=== PATIENT | male | born 1950 | race Caucasian/White ===

== ENCOUNTER 2023-04-05 09:58 | Outpatient (OUT) | payer MEDICARE, SELFPAY ==
--- NOTE | 2023-04-05 10:11 | XR_ITS ---
The [address] [address] Patient Name: FLORES DIAZ MRN: [id number] date: 1950 Sex: M Assigned Patient Location: [facility] Current Patient Location: Accession/Order Number: [id number] Exam Date: 04/05/2023 10:15 Report Date: 04/06/2023 00:34 At the request of: KODY RUIZ Procedure: XR abdomen 1V EXAM: PLAIN FILM OF THE ABDOMEN HISTORY: Abdominal pain. COMPARISON: None. TECHNIQUE: 2 views of the abdomen/pelvis submitted for review. FINDINGS: Lines and Tubes: None. Free air: None. The bowel gas pattern is nonobstructive. There are no abnormal calcifications. However, evaluation of the renal shadows is limited due to overlying bowel gas. No portal venous air. Osseous structures do not demonstrate any acute abnormality. XR/XR abdomen 1V IMPRESSION: 1. Nonobstructive bowel gas pattern. 2. Minimal retention of stool. Electronically authenticated by: JACKIE FIORE Date: 04/06/2023 00:34
== END 2023-04-05 09:59 | disposition home or self-care (01) ==
LOC: RAD 10:01
PROVIDERS: PCP Nurse Practitioner Family; Visit Provider Urology
DX: N20.1 Calculus of ureter (principal)
CPT/HCPCS: 74018

== ENCOUNTER 2023-04-13 07:08 | Outpatient (OUT) | payer MEDICARE, SELFPAY ==
--- NOTE | 2023-04-13 07:19 | XR_ITS ---
The [address] [address] Patient Name: FLORES DIAZ MRN: [id number] date: 1950 Sex: M Assigned Patient Location: [facility] Current Patient Location: [facility] Accession/Order Number: [id number] Exam Date: 04/13/2023 07:24 Report Date: 04/13/2023 09:27 At the request of: KODY RUIZ Procedure: XR abdomen 1V EXAM: XR abdomen 1V HISTORY: Kidney Stone N20.0 COMPARISON: None. TECHNIQUE: AP view of the abdomen. FINDINGS: Nonobstructive bowel gas pattern is noted. There is no suspicious calcification. The osseous structures are intact. XR/XR abdomen 1V IMPRESSION: Nonobstructive bowel gas pattern. No suspicious renal opacification. Electronically authenticated by: BRITTON LEE Date: 04/13/2023 09:27
== END 2023-04-13 07:09 | disposition home or self-care (01) ==
LOC: RAD 07:09
PROVIDERS: PCP Nurse Practitioner Family; Visit Provider Urology
DX: N20.0 Calculus of kidney (principal)
CPT/HCPCS: 74018

== ENCOUNTER 2024-02-14 07:04 | Outpatient (OUT) | payer MEDICARE, SELFPAY ==
[2024-02-14 08:01] LABS: Basophils Percent Auto 0.8 % (0.2-2.0); Eosinophils Absolute Auto 0.2 10^3/uL (0.0-0.7); Eosinophils Percent Auto 4.5 % (0.9-7.0); Hematocrit 43.4 % (42.0-54.0); Hemoglobin 14.3 g/dL (14.0-18.0); Immature Granulocytes Abs Auto 0.01 10^3/uL (0.00-0.03); Immature Granulocytes Pct Auto 0.3 % (0.0-0.5); Lymphocytes Percent Auto 26.1 % (20.5-60.0); Mean Corpuscular HGB Conc 32.9 g/dL (29.9-35.2); Mean Corpuscular Hemoglobin 30.6 pg (25.9-34.0); Mean Corpuscular Volume 92.9 fL (80.0-94.0); Mean Platelet Volume 10.6 fL (9.5-13.5); Monocytes Absolute Auto 0.4 10^3/uL (0.3-0.8); Monocytes Percent Auto 11.1 % (1.7-12.0); Neutrophils Absolute Auto 2.2 10^3/uL (1.4-6.5); Neutrophils Percent Auto 57.2 % (43.0-75.0); Platelet Count 120 10^3/uL (150-450); Red Blood Count 4.67 10^6/uL (4.70-6.10); Red Cell Distribution Width 12.7 % (11.0-15.0); White Blood Count 3.8 10^3/uL (4.0-11.0)
[2024-02-14 08:27] LABS: Alanine Aminotransferase 29 U/L (16-63); Albumin Globulin Ratio 1.2; Albumin Level 3.5 g/dL (3.4-5.0); Alkaline Phosphatase 57 U/L (46-116); Anion Gap 10.5; Aspartate Amino Transferase 25 U/L (15-37); BUN Creatinine Ratio 14.3; Bilirubin Total 0.7 mg/dL (0.2-1.0); Calcium 8.1 mg/dL (8.5-10.1); Carbon Dioxide 28.7 mmol/L (21.0-32.0); Chloride 108 mmol/L (98-107); Chol HDL Ratio 3.1; Cholesterol 148 mg/dL (<=200); Estimated GFR (African America >60 (>=60); Estimated GFR (Non-African Ame >60 (>=60); Globulin 2.8 g/dL; Glucose 110 mg/dL (74-106); HDL Cholesterol 47 mg/dL (40-60); Potassium 4.2 mmol/L (3.5-5.1); Sodium 143 mmol/L (136-145); Thyroid Stimulating Hormone 2.828 uIU/mL (0.358-3.740); Total Protein 6.3 g/dL (6.4-8.2); Triglycerides 65 mg/dL (<=150)
[2024-02-14 08:39] LABS: Prostate Specific Antigen Scrn 1.97 ng/mL (<=4.00)
[2024-02-14 08:49] LABS: Estimated Average Glucose 117 mg/dL; Glycohemoglobin A1C 5.7 % (4.5-6.2)
== END 2024-02-14 07:05 | disposition home or self-care (01) ==
LOC: LAB 07:06
PROVIDERS: PCP Nurse Practitioner Family; Visit Provider Nurse Practitioner Family
DX: Z00.00 Encounter for general adult medical examination without abnormal findings (principal); N52.9 Male erectile dysfunction, unspecified; D69.6 Thrombocytopenia, unspecified; E78.2 Mixed hyperlipidemia; Z12.5 Encounter for screening for malignant neoplasm of prostate
CPT/HCPCS: 36415; 80053; 80061; 83036; 84443; 85025; G0103

== ENCOUNTER 2024-05-10 16:54 | Outpatient (OUT) | payer MEDICARE, SELFPAY ==
--- NOTE | 2024-05-10 | XR_ITS ---
The [address] [address] Patient Name: FLORES DIAZ MRN: [id number] date: 1950 Sex: M Assigned Patient Location: [facility] Current Patient Location: Accession/Order Number: [id number] Exam Date: 05/10/2024 17:04 Report Date: 05/11/2024 09:53 At the request of: KODY RUIZ Procedure: XR abdomen 1V EXAMINATION: XR abdomen 1V HISTORY: kidney stones n20.0 COMPARISON: 04/13/2023 FINDINGS: KIDNEY/URETER - RIGHT: No visible renal or ureteral calcifications. KIDNEY/URETER - LEFT: No visible renal or ureteral calcifications. PELVIS: No visible ureteral calcifications. Any visible calcifications favor phleboliths. BOWEL: No abnormal dilation or deviation. BONES: No acute abnormality. OTHER: Negative. No abnormal gaseous collections. XR/XR abdomen 1V IMPRESSION: No urinary tract calculi observed Electronically authenticated by: GERALD ALVARADO Date: 05/11/2024 09:53
--- OUTSIDE RECORDS SUMMARY | 2024-05-10 17:01 | XMS_ITS | CCD ---
Author Organization [facility] Care Team Providers Care Through Operator Name Role Phone Fallonle Niki Unavailable MITCH Buenrostro Primary Care Provider MITCH Buenrostro Attending Provider Hilario Sarmiento Primary Care Provider MITCH Buenrostro Primary Care Provider MITCH Buenrostro Attending Provider RUBI BUENROSTRONIFER Primary Care Physician KAPLE, NKII Admitting Unavailable KAPLE, NIKI Attending Unavailable KAPLE, NIKI Consulting Unavailable KAPLE, NIKI Primary Care Unavailable SARA ., DR GATES Attending Unavailable SARA ., DR GATES Consulting Unavailable SARA ., DR GATES Admitting Unavailable KAPLE, NIKI Primary Care Unavailable KAPLE, NIKI Admitting Unavailable KAPLE, NIKI Attending Unavailable KAPLE, NIKI Consulting Unavailable KAPLE, NIKI Primary Care Unavailable Porter DNP Niki Primary Care Provider DO Artie Mejia Emergency Provider MD Sincere Mark Attending Provider Kaple, Niki Primary Care Unavailable Sincere Sheth Attending Unavailable Sincere Sheth Admitting Unavailable Kaple, Niki Primary Care Unavailable Kaple, Niki Admitting Unavailable Kaple, Niki Attending Unavailable Kaple, Niki Primary Care Unavailable Kaple, Niki Admitting Unavailable Kaple, Niki Attending Unavailable Kaple, Niki Primary Care Unavailable Artie Mejia Attending Unavailable Artie Mejia Admitting Unavailable SHETH, Sincere Plasencia Attending Unavailable SHETH, Sincere Plasencia Attending Unavailable SHETH, Sincere Plasencia Attending Unavailable SHETH, Sincere R Attending Unavailable SHETH, Sincere R Attending Unavailable SHETH, Sincere Plasencia Attending Unavailable SHETH, Sincere R Admitting Unavailable SHETH, Sincere Plasencia Attending Unavailable Allergies Allergy Classification Reported Allergen(s) Allergy Type Date of Onset Reaction(s) Facility (1 source) No Known Medication Allergies; Translations: [No Known Medication Allergies] Propensity to adverse reactions (disorder) [facility] Repository Medications Current Medications Medication Drug Class(es) Dates Sig (Normalized) Sig (Original) Aspir-81 81 MG (9 sources) take 1 tablet by mouth once daily Aspir-81 81 MG 1 tablet Orally Once a day for 30 day(s) Active Aspirin (5 sources) Platelet Aggregation Inhibitor, Nonsteroidal Anti-inflammatory Drug Start: 08-02-2019 aspirin 81 mg, Refills(s) 0 Start Date: 08/02/19 Status: Ordered Start: 07-10-2008 aspirin(ASPIR- LOW 81 MG TAB) Take one(1) tablet daily. 0 07/10/2008 Active Comment on above: Take one(1) tablet d aily. Multi For Him 50+ (9 sources) take 1 tablet by mouth once daily Multi For Him 50+ 1 tablet Orally Once a day Active Multi Vitamin+ (4 sources) Start: Multi Vitamin+ Refill(s) 0 Start Date: 09/29/21 Status: Ordered Multivitamin preparation (2 sources) Start: take 1 tablet by mouth once daily Multivitamin Active 1 TAB PO Daily March 04, 2023 12:00am naproxen 500 mg oral tablet (2 sources) Nonsteroidal Anti-inflammatory Drug Start: take 1 tablet by mouth twice daily Naproxen (Naprosyn) 500 mg tablet Active 500 MG PO Twice daily 10 March 04, 2023 12:00am oxyCODONE hydrochloride 5 mg oral tablet (2 sources) Opioid Agonist Start: take 5 mg by mouth once daily Oxycodone Active 5 MG PO Daily 7 March 04, 2023 sildenafil 100 mg oral tablet (8 sources) Phosphodiesterase 5 Inhibitor Start: take 1 tablet by mouth once daily sildenafil 100 mg Tab 100 mg = 1 tab(s), Oral, Daily, # 30 tab(s), Refills(s) 4, Pharmacy: [id number], 173, cm, 12/11/22 10:15:00 EDT, Height/Length Dosing, 75, kg, 12/11/22 10:15:00 EDT, Weight Dosing Start Date: 12/11/22 Status: Ordered Viagra Active simvastatin 40 mg oral tablet (15 sources) HMG-CoA Reductase Inhibitor Start: 08-02-2019 simvastatin 40 mg, Oral, Refills(s) 0 Start Date: 08/02/19 Status: Ordered Simvastatin 40 M G TAKE 1 TABLET EVERY EVENING for 90 Active tadalafil 5 mg oral tablet (7 sources) Phosphodiesterase 5 Inhibitor Cialis 5 MG 1 tablet Orally prn Active tamsulosin hydrochloride 0.4 mg oral capsule (4 sources) alpha-Adrenergic Brody Start: 03-08-20 take 1 capsule by mouth twice daily tamsulosin 0.4 mg Cap 0.4 mg = 1 cap(s), Oral, BID, # 60 cap(s), Refills(s) 0, Pharmacy: [id number], 173, cm, 02/22/23 9:11:00 EDT, Height/Length Dosing, 75, kg, 02/22/23 9:11:00 EDT, Weight Dosing Start Date: 03/08/23 Status: Ordered Start: 03-04-2023 take 1 capsule by [facility] once daily Tamsulosin (Flomax) 0.4 mg capsule Active 0.4 MG PO Daily March 04, 2023 12:00am terbinafine 250 mg oral tablet (6 sources) Allylamine Antifungal Start: 11-27-2021 take 1 tablet by mouth every twenty-four hours Terbinafine HCl 250 MG 1 tablet Orally Once a day for 90 days Oct, Active Completed/Discontinued Medications Medication Drug Class(es) Dates Sig (Normalized) Sig (Original) cyclobenzaprine hydrochloride 10 mg oral tablet (3 sources) Muscle Relaxant Start: 12-25-2014 take 1 tablet by mouth every eight hours Cyclobenzaprine HCl 10 MG 1 tablet Orally Three times a day Nov, Not-Taking diclofenac sodium 0.01 mg/mg topical gel (3 sources) Nonsteroidal Anti-inflammatory Drug Start: 09-11-2013 Voltaren 1 % as directed Transdermal As directed, up to qid Aug, Not-Taking docosahexanoic acid/epa(EPA FISH OIL CAP) (1 source) Start: 07-10-2008 docosahexanoic acid/epa(EPA FISH OIL CAP) Take one(1) tablet daily. 0 07/10/2008 Active Comment on above: Take one(1) tablet d aily. krill oil (3 sources) Krill Oil [place]- 3 300 MG Orally Not-Taking multivitamins(DAILY MULTIVITAMIN TAB) (1 source) Start: 07-10-2008 multivitamins(DAILY MULTIVITAMIN TAB) Take one(1) tablet daily. 0 07/10/2008 Active Comment on above: Take one(1) tablet d aily. rosuvastatin calcium 20 mg oral tablet (1 source) HMG-CoA Reductase Inhibitor Start: 05-02-2010 ROSUVASTATIN 20 MG TAB one tablet daily 0 05/02/2010 Active Comment on above: one tablet daily Suprep Bowel Prep . (3 sources) Start: 01-04-2015 Suprep Bowel Prep . as directed Orally as directed for 1 dose(s) December, Not-Taking Problems Active Problems Problem Classification Problem Date Documented Date Episodic/Chronic Abdominal pain (3 sources) Abdominal pain; Translations: [Unspecified abdominal pain] Onset: 03-04-2023 03-04-2023 Episodic Calculus of urinary tract (20 sources) Ureteric stone; Translations: [Calculus of ureter] Onset: 11-27-2021 Resolved: 11-27-2021 Episodic Coagulation and hemorrhagic disorders (9 sources) Platelet count below reference range; Translations: [Thrombocytopenia, unspecified] Chronic Diabetes mellitus without complication (12 sources) Impaired fasting glycemia; Translations: [Impaired fasting glucose] Onset: 11-27-2021 Resolved: 11-27-2021 Episodic Disorders of lipid metabolism (20 sources) Mixed hyperlipidemia; Translations: [Mixed hyperlipidemia] Onset: 11-27-2021 Resolved: 11-27-2021 Chronic Diverticulosis and diverticulitis (9 sources) Diverticular disease of colon; Translations: [Diverticulosis of large intestine without perforation or abscess without bleeding] Chronic Hyperplasia of prostate (16 sources) Benign prostatic hypertrophy with outflow obstruction; Translations: [Benign prostatic hyperplasia with lower urinary tract symptoms] Onset: 12-10-2022 Chronic Joint disorders and dislocations; trauma-related (1 source) Derangement of medial meniscus; Translations: [Other meniscus derangements, unspecified medial meniscus, unspecified knee] Onset: 04-08-2010 04-08-2010 Chronic Other diseases of kidney and ureters (9 sources) Hydronephrosis; Translations: [Unspecified hydronephrosis] Episodic Other ear and sense organ disorders (1 source) Conductive hearing loss of combined sites; Translations: [Conductive hearing loss, unspecified] Onset: 10-31-2008 10-31-2008 Chronic Other ear and sense organ disorders (9 sources) Tinnitus; Translations: [Tinnitus, right ear] Episodic Other endocrine disorders (4 sources) 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 Other male genital disorders (13 sources) Impotence of organic origin; Translations: [Male erectile dysfunction, unspecified] 08-05-2020 Chronic Other male genital disorders (4 sources) Male erectile dysfunction, unspecified; Translations: [Erectile dysfunction] Onset: 11-27-2021 Resolved: 11-27-2021 Chronic Other nutritional; endocrine; and metabolic disorders (7 sources) Hypocalcemia; Translations: [Hypocalcemia] Chronic Other nutritional; endocrine; and metabolic disorders (1 source) Hypocalcemia Onset: 12-31-2021 Resolved: 12-31-2021 Chronic Residual codes; unclassified (2 sources) Family history of cancer; Translations: [Family history of malignant neoplasm of prostate] Onset: 12-10-2022 Episodic Residual codes; unclassified (4 sources) Family history of prostate cancer 08-05-2020 Episodic Unclassified (1 source) Benign prostatic hyperplasia with lower urinary tract symptoms; Translations: [Benign prostatic hyperplasia with lower urinary tract symptoms] Onset: 03-25-2023 Unclassified (1 source) Strain of muscle, fascia and tendon of lower back, subsequent encounter; Translations: [Strain of muscle, fascia and tendon of lower back, subsequent encounter] Onset: 07-06-2022 Unclassified (2 sources) Obstructive hydronephrosis 04-27-2023 Past or Other Problems Problem Classification Problem Date Documented Date Episodic/Chronic Mycoses (9 sources) Tinea unguium; Translations: [TINEA UNGUIUM] Onset: 11-27-2021 Resolved: 03-03-2022 Episodic Other ear and sense organ disorders (1 source) Cholesteatoma of mastoid, unspecified ear; Translations: [Cholesteatoma of middle ear and mastoid] Onset: 10-31-2008 10-31-2008 Episodic Other non-traumatic joint disorders (1 source) Pain in lower limb; Translations: [Pain in unspecified knee] Onset: 05-15-2010 05-15-2010 Episodic Sprains and strains (1 source) Strain of muscle, fascia and tendon of lower back, initial encounter Onset: 05-13-2022 Resolved: 05-13-2022 Episodic Results Test Name Value Interpretation Reference Range Facility [facility] 05-13-2023 Screens [id number]# 1.00CD:127 Normal [facility] Ambulatory Visit Summaryon 0 05-12-2023 Ambulatory Visit Summary ROXY DOLAN :1950 Visit Date:05/12/2023 Ambulatory Visit Instructions Your Diagnosis Prostate nodule BPH with urinary obstruction Organic impotence History of kidney stones Kidney stone Tests Performed XR Abdomen 1 View -- Results Pending -- Please visit your patient portal for your results or contact your primary care physician. Your Care Team Attending Physician - Sincere SHETH MD Primary Care Physician - NIKI BUENROSTRO CNP This Is Your Medications List sildenafil (sildenafil 100 mg Tab) tamsulosin (tamsulosin 0.4 mg Cap) Contact prescribing physician if questions or concerns aspirin multivitamin (Multi Vitamin+) simvastatin Procedures Performed Transrectal needle biopsy of prostate (04/28/2023), History of knee surgery, Tonsillectomy. Discharge Vitals Height 173 cm Height 68 in Weight 75 kg Weight 165 lb BMI 25.06 What to do next You Need to Schedule the Following Appointments Follow Up with Sincere SHETH MD, [place] When: Where: [facility] [address] [place] [address]- Medications What How Much When Instructions Unchanged sildenafil (sildenafil 100 mg Tab) 1 Tablets By Mouth Every day Unchanged tamsulosin (tamsulosin 0.4 mg Cap) 1 Capsules By Mouth 2 times a day Unchanged aspirin 81 Milligram Contact prescribing physician if questions or concerns Unchanged multivitamin (Multi Vitamin+) Contact prescribing physician if questions or concerns Unchanged simvastatin 40 Milligram By Mouth Contact prescribing physician if questions or concerns Allergies No Known Medication Allergies Problems Ongoing - Any problem that you are currently receiving treatment for. BPH with urinary obstruction Family history of prostate cancer History of kidney stones Hyperlipidemia Hypogonadism in male Nephrolithiasis Organic impotence Prostate nodule Ureteral stone with hydronephrosis Education Materials Benign Prostatic Hyperplasia Benign prostatic hyperplasia (BPH) is an enlarged prostate gland that is caused by the normal aging process. The prostate may get bigger as a man gets older. The condition is not caused by cancer. The prostate is a walnut-sized gland that is involved in the production of semen. It is located in front of the rectum and below the bladder. The bladder stores urine. The urethra carries stored urine out of the body. An enlarged prostate can press on the urethra. This can make it harder to pass urine. The buildup of urine in the bladder can cause infection. Back pressure and infection may progress to bladder damage and kidney (renal) failure. What are the causes? This condition is part of the normal aging process. However, not all men develop problems from this condition. If the prostate enlarges away from the urethra, urine flow will not be blocked. If it enlarges toward the urethra and compresses it, there will be problems passing urine. What increases the risk? This condition is more likely to develop in men older than 50 years. What are the signs or symptoms? Symptoms of this condition include: ? Getting up often during the night to urinate. ? Needing to urinate frequently during the day. ? Difficulty starting urine flow. ? Decrease in size and strength of your urine stream. ? Leaking (dribbling) after urinating. ? Inability to pass urine. This needs immediate treatment. ? Inability to completely empty your bladder. ? Pain when you pass urine. This is more common if there is also an infection. ? Urinary tract infection (UTI). How is this diagnosed? This condition is diagnosed based on your medical history, a physical exam, and your symptoms. Tests will also be done, such as: ? A post-void bladder scan. This measures any amount of urine that may remain in your bladder after you finish urinating. ? A digital rectal exam. In a rectal exam, your health care provider checks your prostate by putting a lubricated, gloved finger into your rectum to feel the back of your prostate gland. This exam detects the size of your gland and any abnormal lumps or growths. ? An exam of your urine (urinalysis). ? A prostate specific antigen (PSA) screening. This is a blood test used to screen for prostate cancer. ? An ultrasound. This test uses sound waves to electronically produce a picture of your prostate gland. Your health care provider may refer you to a specialist in kidney and prostate diseases (urologist). How is this treated? Once symptoms begin, your health care provider will monitor your condition (active surveillance or watchful waiting). Treatment for this condition will depend on the severity of your condition. Treatment may include: ? Observation and yearly exams. This may be the only treatment needed if your condition and symptoms are mild. ? Medicines to relieve your symptoms, including: ? Medicines (more content not included)... Normal [facility] Patient Educationon 05-12-20 Patient Education Urology Benign Prostatic Hyperplasia Benign prostatic hyperplasia (BPH) is an enlarged prostate gland that is caused by the normal aging process. The prostate may get bigger as a man gets older. The condition is not caused by cancer. The prostate is a walnut-sized gland that is involved in the production of semen. It is located in front of the rectum and below the bladder. The bladder stores urine. The urethra carries stored urine out of the body. An enlarged prostate can press on the urethra. This can make it harder to pass urine. The buildup of urine in the bladder can cause infection. Back pressure and infection may progress to bladder damage and kidney (renal) failure. What are the causes? This condition is part of the normal aging process. However, not all men develop problems from this condition. If the prostate enlarges away from the urethra, urine flow will not be blocked. If it enlarges toward the urethra and compresses it, there will be problems passing urine. What increases the risk? This condition is more likely to develop in men older than 50 years. What are the signs or symptoms? Symptoms of this condition include: ? Getting up often during the night to urinate. ? Needing to urinate frequently during the day. ? Difficulty starting urine flow. ? Decrease in size and strength of your urine stream. ? Leaking (dribbling) after urinating. ? Inability to pass urine. This needs immediate treatment. ? Inability to completely empty your bladder. ? Pain when you pass urine. This is more common if there is also an infection. ? Urinary tract infection (UTI). How is this diagnosed? This condition is diagnosed based on your medical history, a physical exam, and your symptoms. Tests will also be done, such as: ? A post-void bladder scan. This measures any amount of urine that may remain in your bladder after you finish urinating. ? A digital rectal exam. In a rectal exam, your health care provider checks your prostate by putting a lubricated, gloved finger into your rectum to feel the back of your prostate gland. This exam detects the size of your gland and any abnormal lumps or growths. ? An exam of your urine (urinalysis). ? A prostate specific antigen (PSA) screening. This is a blood test used to screen for prostate cancer. ? An ultrasound. This test uses sound waves to electronically produce a picture of your prostate gland. Your health care provider may refer you to a specialist in kidney and prostate diseases (urologist). How is this treated? Once symptoms begin, your health care provider will monitor your condition (active surveillance or watchful waiting). Treatment for this condition will depend on the severity of your condition. Treatment may include: ? Observation and yearly exams. This may be the only treatment needed if your condition and symptoms are mild. ? Medicines to relieve your symptoms, including: ? Medicines to shrink the prostate. ? Medicines to relax the muscle of the prostate. ? Surgery in severe cases. Surgery may include: ? Prostatectomy. In this procedure, the prostate tissue is removed completely through an open incision or with a laparoscope or robotics. ? Transurethral resection of the prostate (TURP). In this procedure, a tool is inserted through the opening at the tip of the penis (urethra). It is used to cut away tissue of the inner core of the prostate. The pieces are removed through the same opening of the penis. This removes the blockage. ? Transurethral incision (TUIP). In this procedure, small cuts are made in the prostate. This lessens the prostate's pressure on the urethra. ? Transurethral microwave thermotherapy (TUMT). This procedure uses microwaves to create heat. The heat destroys and removes a small amount of prostate tissue. ? Transurethral needle ablation (TUNA). This procedure uses radio frequencies to destroy and remove a small amount of prostate tissue. ? Interstitial laser coagulation (ILC). This procedure uses a laser to destroy and remove a small amount of prostate tissue. ? Transurethral electrovaporization (TUVP). This procedure uses electrodes to destroy and remove a small amount of prostate tissue. ? Prostatic urethral lift. This procedure inserts an implant to push the lobes of the prostate away from the urethra. Follow these instructions at home: ? Take [id number] and prescription medicines only as told by your health care provider. ? Monitor your symptoms for any changes. Contact your health care provider with any changes. ? Avoid drinking large amounts of liquid before going to bed or out in public. ? Avoid or reduce how much caffeine or alcohol you drink. ? Give yourself time when you urinate. ? Keep all follow-up visits. This is important. Contact a health care provider if: ? You have unexplained back pain. ? Your symptoms do not get better with treatment. ? You develop side effects from the medicine (more content not included)... Normal [facility] Urology Office/Clinic Noteon 05-12-2023 Urology Office/Clinic Note Chief Complaint Pt is here for PO TRUS/bx HPI Staff Follow up to TRUS/bx done 04/28/23, review pathology report. Previous DX: BPH with urinary obstruction, family HX of prostate cancer (grandfather) and organic impotence. Pt is taking Sildenafil 100mg PRN. Dysuria: denies Incomplete bladder emptying: denies Hematuria: denies Frequency: denies Urgency: denies Nocturia: 1x a night Stream: steady stream Leaking: denies Post void dripping: denies Wearing pads/ Depends: denies Urge incontinence: denies Stress incontinence: denies Incontinence without Sensory Awareness: denies Abdominal pain: denies Flank pain: denies Sexual complaints: _ History of Present Illness Tests reviewed: reviewed op note, path I have reviewed the previous health record information and history for this patient from Dr. Sheth. I have reviewed and verified the staff HPI to be accurate for this encounter. There have been no associated fever, chills, flank pain, or blood in the urine. Denies any urinary infections since last encounter. Review of Systems PHQ Score Initial Depression Screen Score: 0 ROS - Provider Constitutional: denies weight loss, denies hot flashes. Eyes: denies eye problems. Gastrointestinal: denies nausea, denies vomiting. Cardiovascular: denies chest pain or angina. Integumentary: no dryness Musculoskeletal: denies musculoskeletal symptoms. ENMT: denies otolaryngeal symptoms. Respiratory: no shortness of breath. Heme/Lymph: denies easy bleeding tendency, denies easy bruising tendency. Psychiatric: no confusion, no anxiety. Genitourinary: See HPI. Physical Exam Vitals & Measurements HT: 68 in HT: 173 cm WT: 75 kg WT: 165 lb BMI: 25.06 General Appearance: alert, no distress, well nourished, well developed male. Genitourinary: normal scrotum, normal testes, normal urethra, normal epididymis, normal vas deferens/spermatic cord. Flank Pain: none. Bladder: nonpalpable. Assessment/Plan 1. Prostate nodule (N40.2: Nodular prostate without lower urinary tract symptoms) KING 02/22/23 - 30 gm, R base to apex nodule. MRI of prostate 03/25/23 - No MRI evidence of prostate malignancy, BPH changes. 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 Prostate volume 31 cc. TRUS/bx 04/28/23 - Patchy chronic inflammation x 1 core. CAMILLE x 1 core. Prostate volume 23 cc. The pathology report was reviewed with the patient in detail today. There is no evidence of malignancy and no further evaluation of the tissue removed is planned. All questions were answered and the report discussed in terms that the patient could understand. 2. BPH with urinary obstruction (N40.1: Benign prostatic hyperplasia with lower urinary tract symptoms) PSA: 09/26/21 - 1.76 12/10/22 - 1.99 No sample provided for UA today. Not taking any maintenance BPH meds. PSAs low. Follow up 1 yr PSA, KING or sooner if needed. Pt understands and agrees with plan. 3. 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 4. History of kidney stones (Z87.442: Personal history of urinary calculi) [facility] [place] [facility] 03/04/23 due to LUQ pain and nausea. CT AP w con 03/04/23 [facility] [place] - L-sided hydronephrosis and ureter questionable subtle punctate stone in the region of the L UVJ. R kidney unremarkable. No renal stones noted. 03/04/23 - BUN 19. Crea 1.28. eGFR >60. KUB 04/05/23 [facility] - Obscuring bowel gas, neg for stones. KUB 04/13/23 [facility] - Neg for stones. -KUB in 1 yr. Follow-up With When Contact Information Sincere SHETH MD, URL [facility] [address] [place] [address]- Additional Instructions: 1 yr PSA, KING, KUB Patient Education Benign Prostatic Hyperplasia I, Aracelis Meza, personally scribed for Dr. Sheth on 05/12/2023 15:21:28. . Problem List/Past Medical History Ongoing BPH with urinary obstruction Family history of prostate cancer History of kidney stones Hyperlipidemia Hypogonadism in male Nephrolithiasis Organic impotence Prostate nodule Ureteral stone with hydronephrosis Historical No qualifying data Procedure/Surgical History Transrectal needle biopsy of prostate (04/28/2023), History of knee surgery, Tonsillectomy. Medications aspirin, 81 mg Multi Vitamin+ sildenafil 100 mg Tab, 100 mg= 1 tab(s), Oral, Daily, 4 refills simvastatin, 40 mg, Oral tamsulosin 0.4 mg Cap, 0.4 mg= 1 cap(s), Oral, BID Allergies No Known Medication Allergies Social History Alcohol - Low Risk, 08/03/2019 Tobacco Former smoker, quit more than 30 days ago Tobacco Use:. Cigarettes, 12/11/2022 Family History Alzheimer's disease: Mother. Cancer of prostate: Grandparent. Leukemia: Father. Immunizations Vaccine Date Status Comments influenza virus vaccine, inactivated 07/06/2022 Recorded SARS-CoV-2 (COVID-19) mRNAMUL.OR (more content not included)... Normal [facility] Comment on above: Result Comment: Elec tronically Signed By: Sincere SHETH MD\.br\Date and Time Signed: 05/12/23 17:05 EDT\.br\Electronically Co-Signed By: Aracelis Meza\.br\Date and Time Co-Signed: 05/12/23 15:21 EDT Prostate Histology ([facility]) on 05-04-2023 Prostate Histology Diagnosis Info Invalid Interpretation Code [facility] Comment on above: Result Comment: A:Pr ostate,Left Lateral Base:Needle Biopsy Interpretation - - Benign prostatic tissue with patchy chronic inflammation. MicroScopic Description - B:Prostate,Left Lateral Mid:Needle Biopsy Interpretation - - Benign prostatic tissue. MicroScopic Description - C:Prostate,Left Lateral Lupton:Needle Biopsy Interpretation - - Benign prostatic tissue. MicroScopic Description - D:Prostate,Left Base:Needle Biopsy Interpretation - - Benign prostatic tissue. MicroScopic Description - E:Prostate,Left Mid:Needle Biopsy Interpretation - - Benign prostatic tissue. MicroScopic Description - F:Prostate,Left Lupton:Needle Biopsy Interpretation - - Benign prostatic tissue. MicroScopic Description - G:Prostate,Right Base:Needle Biopsy Interpretation - - Benign prostatic tissue. MicroScopic Description - H:Prostate,Right Mid:Needle Biopsy Interpretation - - Benign prostatic tissue. MicroScopic Description - I:Prostate,Right Lupton:Needle Biopsy Interpretation - - Benign prostatic tissue. MicroScopic Description - J:Prostate,Right Lateral Base:Needle Biopsy Interpretation - - Benign prostatic tissue. MicroScopic Description - K:Prostate,Right Lateral Mid:Needle Biopsy Interpretation - - Atypical small acinar glands. MicroScopic Description - L:Prostate,Right Lateral Lupton:Needle Biopsy Interpretation - - Benign prostatic tissue. MicroScopic Description - Gross Description Site ID:A color carvalho-white fixative Formalin cores 1 units cm Site ID:B color carvalho-white fixative Formalin cores 1 units cm Site ID:C color carvalho-white fixative Formalin cores 1 units cm Site ID:D color carvalho-white fixative Formalin cores 1 units cm Site ID:E color carvalho-white fixative Formalin cores 1 units cm Site ID:F color carvalho-white fixative Formalin cores 1 units cm fragmented Site ID:G color carvalho-white fixative Formalin cores 1 units cm fragmented Site ID:H color carvalho-white fixative Formalin cores 1 units cm Site ID:I color carvalho-white fixative Formalin cores 1 units cm stringy Site ID:J color carvalho-white fixative Formalin cores 1 units cm Site ID:K color carvalho-white fixative Formalin cores 1 units cm fragmented Site ID:L color carvalho-white fixative Formalin cores 1 units cm CPT 41693 x 12 Electronically signed by : on: 05/04/2023 11:30:43 Performed By: #### 1 [id number] ####[facility] [address] [place] [address] Consent for Procedure/Surger yon 04-29-2023 Consent for Procedure/Surgery [id number] .00CD:127 [facility] Ambulatory Visit Summaryon 0 04-28-2023 Ambulatory Visit Summary ROXY DOLAN :1950 Visit Date:04/28/2023 Ambulatory Visit Instructions Your Diagnosis Prostate nodule BPH with urinary obstruction Organic impotence Family history of prostate cancer Ureteral stone with hydronephrosis Your Care Team Attending Physician - Sincere SHETH MD Primary Care Physician - NIKI BUENROSTRO CNP This Is Your Medications List Contact prescribing physician if questions or concerns aspirin multivitamin (Multi Vitamin+) sildenafil (sildenafil 100 mg Tab) simvastatin tamsulosin (tamsulosin 0.4 mg Cap) Procedures Performed Transrectal needle biopsy of prostate (04/28/2023), History of knee surgery, Tonsillectomy. Discharge Vitals Heart Rate (Peripheral) 79 Respiratory Rate 16 Blood Pressure 136/86 Height 173 cm Height 68 in Weight 75.2 kg Weight 165.44 lb BMI 25.13 What to do next Scheduled Follow-Up Appointments Wednesday 10:15 AM EDT With: Sincere SHETH MD Where: [facility] Patient Educationon 04-28-20 Patient Education Oncology Transrectal Ultrasound-Guided Prostate Biopsy, Care After The following information offers guidance on how to care for yourself after your procedure. Your health care provider may also give you more specific instructions. If you have problems or questions, contact your health care provider. What can I expect after the procedure? After the procedure, it is common to have: ? Pain and discomfort near your rectum, especially while sitting. ? [place]-colored urine due to small amounts of blood in your urine. ? A burning feeling while urinating. ? Blood in your stool (feces) or bleeding from your rectum. ? Blood in your semen. Follow these instructions at home: Medicines ? Take txno-amk-knqqtrj and prescription medicines only as told by your health care provider. ? If you were given a sedative during your procedure, it can affect you for several hours. Do not drive or operate machinery until your health care provider says that it is safe. ? If you were prescribed an antibiotic medicine, take it as told by your health care provider. Do not stop using the antibiotic even if you start to feel better. Activity ? Return to your normal activities as told by your health care provider. Ask your health care provider what activities are safe for you. ? Ask your health care provider when it is okay for you to resume sexual activity. ? You may have to avoid lifting. Ask your health care provider how much you can safely lift. General instructions ? Drink enough fluid to keep your urine pale yellow. ? Watch your urine, stool, and semen for new or increased bleeding. ? Keep all follow-up visits. This is important. Contact a health care provider if: ? You have any of the following: ? Blood clots in your urine or stool. ? Blood in your urine more than 2 weeks after the procedure. ? Blood in your semen more than 2 months after the procedure. ? New or increased bleeding in your urine, stool, or semen. ? Severe pain in your abdomen. ? Your urine smells bad or unusual. ? You have trouble urinating. ? Your lower abdomen feels firm. ? You have problems getting an erection. ? You have nausea or you vomit. Get help right away if: ? You have a fever or chills. This could be a sign of infection. ? You have bright red urine. ? You have severe pain that does not get better with medicine. ? You cannot urinate. Summary ? After this procedure, it is common to have pain and discomfort around your rectum, especially while sitting. ? You may have blood in your urine and stool after the procedure. ? It is common to have blood in your semen after this procedure. ? Get help right away if you have a fever or chills. This could be a sign of infection. This information is not intended to replace advice given to you by your health care provider. Make sure you discuss any questions you have with your health care provider. Document Revised: 02/09/2022 Document Reviewed: 02/09/2022 [email or web address] Patient Education ? 2022 [email or web address] Normal [facility] Prostate Histology ([facility]) on 04-28-2023 PH Method of Extraction Needle Biopsy Normal [facility] Comment on above: Performed By: #### 1 [id number] ####[facility] [address] [place] [address] PH Number of Jars 2 Invalid Interpretation Code [facility] Comment on above: Performed By: #### 1 [id number] ####[facility] [address] [place] [address] PH Specimen 1 R Base Prostate Normal [facility] Comment on above: Performed By: #### 1 [id number] ####[facility] [address] [place] [address] PH Specimen 10 L Lat Mid Prost Normal [facility] Comment on above: Performed By: #### 1 [id number] ####[facility] [address] [place] [address] PH Specimen 11 L Apx Prostate Normal [facility] Comment on above: Performed By: #### 1 [id number] ####[facility] [address] [place] [address] PH Specimen 12 L Lat Apx Prost Normal [facility] Comment on above: Performed By: #### 1 [id number] ####[facility] [address] [place] [address] PH Specimen 2 R Lat Bse Prost Normal [facility] Comment on above: Performed By: #### 1 [id number] ####[facility] [address] [place] [address] PH Specimen 3 R Mid Prostate Normal [facility] Comment on above: Performed By: #### 1 [id number] ####[facility] [address] [place] [address] PH Specimen 4 R Lat Mid Prost Normal [facility] Comment on above: Performed By: #### 1 [id number] ####[facility] [address] [place] [address] PH Specimen 5 R Apx Prostate Normal [facility] Comment on above: Performed By: #### 1 [id number] ####[facility] [address] [place] [address] PH Specimen 6 R Lat Apx Prost Normal [facility] Comment on above: Performed By: #### 1 [id number] ####[facility] [address] [place] [address] PH Specimen 7 L Base Prostate Normal [facility] Comment on above: Performed By: #### 1 [id number] ####[facility] [address] [place] [address] PH Specimen 8 L Lat Bse Prost Normal [facility] Comment on above: Performed By: #### 1 [id number] ####[facility] [address] [place] [address] PH Specimen 9 L Mid Prostate Normal [facility] Comment on above: Performed By: #### 1 [id number] ####[facility] [address] [place] [address] PH Type of Service Technical Only Normal [facility] Comment on above: Performed By: #### 1 [id number] ####[facility] [address] [place] [address] Urology Office/Clinic Noteon 04-28-2023 Urology Office/Clinic Note Chief Complaint TRUS Bx HPI Staff Pt here for TRUS/bx. Abx taken? MRI of prostate 03/25/23 - No MRI evidence of prostate malignancy, BPH changes. 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 Prostate volume 31 cc. [facility] ER 03/04/23 due to LUQ pain and nausea. CT AP w con 03/04/23 [facility] - L-sided hydronephrosis and ureter questionable subtle punctate stone in the region of the L UVJ. R kidney unremarkable. No renal stones noted. 03/04/23 - BUN 19. Crea 1.28. eGFR >60. KUB 04/05/23 [facility] - Obscuring bowel gas, neg for stones. KUB 04/13/23 [facility] - Neg for stones. History of Present Illness Tests reviewed: reviewed ER records, MRI. I have reviewed the previous health record information and history for this patient from Dr. Sheth. I have reviewed and verified the staff HPI to be accurate for this encounter. There have been no associated fever, chills, flank pain, or blood in the urine. Denies any urinary infections since last encounter. Review of Systems PHQ Score Initial Depression Screen Score: 0 ROS - Provider Constitutional: denies weight loss, denies hot flashes. Eyes: denies eye problems. Gastrointestinal: denies nausea, denies vomiting. Cardiovascular: denies chest pain or angina. Integumentary: no dryness Musculoskeletal: denies musculoskeletal symptoms. ENMT: denies otolaryngeal symptoms. Respiratory: no shortness of breath. Heme/Lymph: denies easy bleeding tendency, denies easy bruising tendency. Psychiatric: no confusion, no anxiety. Genitourinary: See HPI. Physical Exam Vitals & Measurements HR: 79(Peripheral) RR: 16 BP: 136/86 HT: 68 in HT: 173 cm WT: 75.2 kg WT: 165.44 lb BMI: 25.13 General Appearance: alert, no distress, well nourished, well developed male. Genitourinary: normal scrotum, normal testes, normal urethra, normal epididymis, normal vas deferens/spermatic cord. Flank Pain: none. Bladder: nonpalpable. Procedure Operative Information Anesthesia Type: Local Procedure: Transrectal Ultrasound and Transrectal Ultrasound-Guided Biopsy of the Prostate Complications: None Surgical risks, benefits, details of the procedure have been explained to the patient. Full informed consent has been obtained. Intraoperative Information Prepped: The patient was brought into the office suite and placed in the modified left lateral Schuster position. The patient was draped appropriately. 80 mg Gentamicin IM injection administered. Procedure: Then 2% Xylocaine jelly was used for intrarectal anesthesia. After waiting several minutes, a well lubricated ultrasound probe was introduced per rectum. The prostate was carefully evaluated in the AP and Sagittal views. Volume: 23.3 Specimens Removed: A total of 12 biopsies were taken, 6 from each side, and sent to pathology. Postoperative Information The patient tolerated the procedure well and was discharged home in satisfactory condition. The patient was instructed to finish antibiotics, avoid strenuous activity, and go to the emergency room for gross bleeding, fever, or chills. Radiology Report Procedure: Transrectal US guided needle biopsy of the prostate Narrative: Ultrasound probe is introduced and performed in the longitudinal and transverse plains. The prostatic capsule and seminal vesicles appear to be within normal limits. Ultrasound guidance was then utilized to obtain 12 biopsies. These were sent to pathology for evaluation. The gland measures: 42.8 MM Length, 41.2 MM Width, 25.2 MM Depth, with a calculated volume of 23.3 CC. The peripheral zone demonstrates: _Mid and right calcifications. Rest of the prostate demonstrates: No abnormalities Assessment/Plan 1. Prostate nodule (N40.2: Nodular prostate without lower urinary tract symptoms) KING 02/22/23 - 30 gm, R base to apex nodule. [1] MRI of prostate 03/25/23 - No MRI evidence of prostate malignancy, BPH changes. 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 Prostate volume 31 cc. Pt had IO TRUS/bx today wo complications. He tolerated the biopsy well. He should engage in no strenuous activity for 48 hours. Push fluids to keep hydrated and finish the prescribed antibiotics. He knows to go to the ER for fever, chills, inability to void, or severe bleeding. He verbalized understanding these instructions. Follow up 05/14/23 to rev path or sooner if needed. Pt understands and agrees with plan. 2. BPH with urinary obstruction (N40.1: Benign prostatic hyperplasia with lower urinary tract symptoms) PSA: 09/26/21 - 1.76 12/10/22 - 1.99 Not taking any BPH meds. 3. 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 4. Family history of prostate cancer (Z80.42: Family history of malignant neoplasm of prostate) Grandfather. 5. Ureteral stone with hydronephrosis (N13.2: Hydronephrosis with renal and ureter (more content not included)... Normal [facility] Comment on above: Result Comment: Elec tronically Signed By: Sincere SHETH MD\.br\Date and Time Signed: 04/28/23 08:05 EDT\.br\Electronically Co-Signed By: Aracelis Meza\.br\Date and Time Co-Signed: 04/28/23 08:03 EDT RAD - MISCon 04-15-2023 RAD - MISC [id number] .00CD:127 Normal [facility] RAD - MISCon 2023 RAD - MISC [id number] .00CD:127 Normal [facility] RAD - MISCon 04-12-2023 RAD - MISC [id number]#1 .00CD:127 Normal [facility] Insurance Correspondenceon 0 04-05-2023 Insurance Correspondence [id number]# 1.00CD:127 Normal [facility] RAD - MISCon 03-29-2023 RAD - MISC [id number] .00CD:127 Normal [facility] RAD - MRI Reporton RAD - MRI Report [id number] .00CD:127 Normal [facility] MR prostate wo/w conon 03-25 MR prostate wo/w [place] [address] MRI Report Signed Patient: Roxy Dolan MR#: [id number] : 1950 Acct:[id number] Age/Sex: 72 / M ADM Date: 03/25/23 Loc: Room: Type: [facility] Attending Dr: Sincere Sheth MD Copies to: Sincere Sheth MD Ordering Provider: Sincere Sheth MD Date of Service: 03/25/23 MR/MR prostate wo/w con: ABNORMAL KING PROSTATE NODULE EXAMINATION: MR prostate wo/w con HISTORY: Prostate nodule felt during exam. Family history of prostate cancer. COMPARISON: NONE TECHNIQUE: Multiparametric imaging of the prostate gland was performed with IV contrast. FINDINGS: Prostate Dimensions: 4.5 x 3.0 x 4.4 cm Prostate Volume: 31 mL Peripheral Zone: Heterogenous inT2 signal suggestive of prior prostatitis. No suspicious T2 or ADC map abnormality is identified to suggest prostate malignancy. Central/Transitional Zone: BPH changes. Seminal Vesicles: Distended seminal vesicles with a central prominent of the seminal vesicles seen along the posterior aspect of the prostate gland presumed congenital in nature.. Neurovascular bundles: Unremarkable. Lymphadenopathy: No evidence of lymphadenopathy. Bladder: No focal lesion. Bowel: Diverticulosis. Peritoneal Cavity: Trace free fluid. Bones: No suspicious bony lesion. MR/MR prostate wo/w con IMPRESSION: No MRI evidence of prostate malignancy. BPH changes. 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 Impression dictated by: Norbert Montejo Jr., D.O.03/25/2023 8:29 PM Dictation Location: RADIO-PC-15 Transcribed By: BRIANNA 03/25/232028 Dictated By: Norbert Montejo Jr, DO 03/25/232017 Signed By: 03/25/232028 [facility] XR skull <4Von 03-25-2023 XR skull <4V [place] [address] XRay Report Signed Patient: Roxy Dolan MR#: [id number] : 1950 Acct:[id number] Age/Sex: 72 / M ADM Date: 03/25/23 Loc: Room: Type: [facility] Attending Dr: Sincere Sheth MD Copies to: Sincere Sheth MD Ordering Provider: Sincere Sheth MD Date of Service: 03/25/23 XR/XR skull <4V: MRI CLEARANCE Skull 2 views. Reason for exam: Pre-MRI. COMPARISON: None. FINDINGS: No radiopaque foreign body is identified. No acute process is seen. XR/XR skull <4V IMPRESSION: No radiopaque foreign body is seen. Impression dictated by: Norbert Montejo Jr., D.O.03/25/2023 6:37 PM Dictation Location: RADIO-PC-15 Transcribed By: BRIANNA 03/25/231836 Dictated By: Norbert Montejo Jr, DO 03/25/231835 Signed By: 03/25/231836 [facility] ED Note-Physicianon 03-09-20 ED Note-Physician [id number] .00CD:127 Normal [facility] Alanine aminotransferase [En zymatic activity/volume] in Serum or PlasmaOrdered By: Artie Mejia on 03-04-2023 ALT [Catalytic activity/Vol] 20 U/L 752 [facility] Albumin [Mass/volume] in Ser um or Plasma by Bromocresol green (BCG) dye binding methoOrdered By: Artie Mejia on 03-04-2023 Albumin BCG dye [Mass/Vol] 4.8 g/dL 3.5-5.7 [facility] Alkaline phosphatase [Enzyma tic activity/volume] in Serum or PlasmaOrdered By: Artie Mejia on 03-04-2023 ALP [Catalytic activity/Vol] 51 U/L 34-104 [facility] Aspartate aminotransferase [ Enzymatic activity/volume] in Serum or PlasmaOrdered By: Artie Mejia on 03-04-2023 AST [Catalytic activity/Vol] 25 U/L 13-39 [facility] Basic Metabolic Panelon 07 Anion gap [Moles/Vol] 8.1 mmol/L Normal 6.0-15.0 [facility] Comment on above: Performed By: #### L IPASE, BMP, HS TROP, HEPATIC, CBC #### [facility] [address] [place] [address] [place] Calcium [Mass/Vol] 9.9 mg/dL Normal 8.6-10.3 [facility] Comment on above: Performed By: #### L IPASE, BMP, HS TROP, HEPATIC, CBC #### [facility] [address] [place] [id number] [place] Chloride [Moles/Vol] 106 mmol/L Normal 98-107 [facility] Comment on above: Performed By: #### L IPASE, BMP, HS TROP, HEPATIC, CBC #### [facility] [address] [place] [id number] [place] CO2 [Moles/Vol] 31.0 mmol/L Normal 21.0-31.0 [facility] Comment on above: Performed By: #### L IPASE, BMP, HS TROP, HEPATIC, CBC #### [facility] [address] Creatinine [Mass/Vol] 1.28 mg/dL Normal 0.70-1.30 [facility] Comment on above: Performed By: #### L IPASE, BMP, HS TROP, HEPATIC, CBC #### [facility] [address] [place] [address] [place] Creatinine Clr Calc Pharmacy 51.95 [facility] Comment on above: Performed By: #### L IPASE, BMP, HS TROP, HEPATIC, CBC #### [facility] [address] [place] [address] [place] GFR/1.73 sq M.predicted MDRD (S/P/Bld) [Vol rate/Area] mL/min/{1.73_m2} [facility] Comment on above: Performed By: #### L IPASE, BMP, HS TROP, HEPATIC, CBC #### [facility] [address] Glucose [Mass/Vol] 103 mg/dL High 70-100 [facility] Comment on above: Result Comment: [facility] Glucose Reference Range is dependent on time and content of last meal. Glucose of more than 200 mg/dL in a nonstressed, ambulatory subject supports the diagnosis of Diabetes Mellitus. ADA recommended reference range Performed By: #### L IPASE, BMP, HS TROP, HEPATIC, CBC #### [facility] [address] [place] [address] [place] Potassium [Moles/Vol] 5.1 mmol/L Normal 3.5-5.1 [facility] Comment on above: Performed By: #### L IPASE, BMP, HS TROP, HEPATIC, CBC #### [facility] [address] [place] [address] [place] Sodium [Moles/Vol] 140 mmol/L Normal 136-145 [facility] Comment on above: Performed By: #### L IPASE, BMP, HS TROP, HEPATIC, CBC #### [facility] [address] [place] [address] [place] Urea nitrogen [Mass/Vol] 19 mg/dL Normal 7-25 [facility] Comment on above: Performed By: #### L IPASE, BMP, HS TROP, HEPATIC, CBC #### [facility] [address] Basophils Auto (Bld) [#/Vol] Ordered By: Artie Mejia on 03-04-2023 Basophils (Bld) [#/Vol] 0.0 10*3/uL 0.0-0.2 [facility] Basophils/100 WBC Auto (Bld) Ordered By: Artie Mejia on 03-04-2023 Basophils/100 WBC (Bld) 0.3 % . F [facility] Bilirubin Test strip Ql (U)O rdered By: Artie Mejia on 03-04-2023 Bilirubin Ql (U) Negative Negative [facility] Bilirubin.direct [Mass/volum e] in Serum or PlasmaOrdered By: Artie Mejia on 03-04-2023 Bilirubin.direct [Mass/Vol] 0.20 mg/dL 0.03-0.18 [facility] Bilirubin.total [Mass/volume ] in Serum or PlasmaOrdered By: Artie Mejia on 03-04-2023 Bilirubin [Mass/Vol] 1.1 mg/dL 0.3-1.0 [facility] CT abdomen pelvis w conon CT abdomen pelvis w con [facility] [place] [address] [place] [address] CT Scan Report Signed Patient: Roxy Dolan MR#: [id number] : 1950 Acct:[id number] Age/Sex: 72 / M ADM Date: 03/04/23 Loc: ER Room: Type: PRE ER Attending Dr: Copies to: Artie Mejia DO Ordering Provider: Artie Mejia DO Date of Service: 03/04/23 CT/CT abdomen pelvis w con: epigastric, LUQ abd pain CT ABDOMEN AND PELVIS WITH INTRAVENOUS CONTRAST: CLINICAL HISTORY: Left lower quadrant pain with nausea. COMPARISON: None TECHNIQUE: Spiral images were obtained through the abdomen and pelvis following the administration of intravenous contrast. This CT exam was performed using one or more following dose reduction techniques: Automated exposure control, adjustment of the mA and/or kV according to patient size, or use of iterative reconstruction technique. FINDINGS: Lung Bases: [Mild lung scarring.] Organs:Liver gallbladder spleen pancreas and adrenal glands all appear grossly unremarkable. Left- sided hydronephrosis and hydroureter questionable subtle punctate stone seen on series 3 image 71 in the region of the left UVJ. Right kidney appears unremarkable. Abdominal aorta appears normal in caliber.[ GI: Stomach is grossly unremarkable. Small bowel appears nondilated. Sigmoid diverticulosis. Appendix is normal.[ Pelvis:[Prostatomegal y. Urinary bladder is grossly unremarkable.] Peritoneum/Retroperit oneum:No free air, free fluid or lymphadenopathy.[ Abd wall/Bones:Abdominal wall demonstrates no acute findings. Osseous structures demonstrate degenerative change.[ CT/CT abdomen pelvis w con IMPRESSION: 1. Left-sided hydronephrosis and hydroureter with questionable subtle punctate obstructing stone in the region of the left UVJ on series 3 image 71. 2. Sigmoid diverticulosis. 3. Prostatomegaly. Impression dictated by: Norbert Montejo Jr., D.O.03/04/2023 2:25 PM Dictation Location: [place] [address] Transcribed By: [facility] 03/04/23 1425 Dictated By: Norbert Montejo Jr, DO 03/04/23 1419 Signed By: 03/04/23 1425 Normal [facility] Calcium [Mass/volume] in Ser um or PlasmaOrdered By: Artie Mejia on 03-04-2023 Calcium [Mass/Vol] 9.9 mg/dL 8.6-10.3 [facility] Carbon dioxide, total [Moles /volume] in Serum or PlasmaOrdered By: Artie Mejia on 03-04-2023 CO2 [Moles/Vol] 31.0 mmol/L 21.0-31.0 [facility] Chloride [Moles/volume] in S bart or PlasmaOrdered By: Artie Mejia on 03-04-2023 Chloride [Moles/Vol] 106 mmol/L 98-107 [facility] Color Auto (U)Ordered By: Kailash Mejia on 03-04-2023 Color (U) Yellow Yellow [facility] Complete Blood Count Auto Di ffon 03-04-2023 Basophils (Bld) [#/Vol] 0.0 10*3/uL Normal 0.0-0.2 [facility] Comment on above: Result Comment: PERF ORMED BY: [place] [address] PATHOLOGIST [employer] ALEXA CASTRO M.D. Performed By: #### L IPASE, BMP, HS TROP, HEPATIC, CBC #### [facility] [address] [place] [address] [place] Basophils/100 WBC (Bld) 0.3 % Normal . [facility] Comment on above: Performed By: #### L IPASE, BMP, HS TROP, HEPATIC, CBC #### [facility] [address] [place] [address] [place] Eosinophils (Bld) [#/Vol] 0.0 10*3/uL Normal 0.0-0.45 [facility] Comment on above: Performed By: #### L IPASE, BMP, HS TROP, HEPATIC, CBC #### [facility] [address] [place] [address] [place] Eosinophils/100 WBC (Bld) 0.6 % Normal . [facility] Comment on above: Performed By: #### L IPASE, BMP, HS TROP, HEPATIC, CBC #### [facility] [address] [place] [address] [place] Erythrocyte distribution width (RBC) [Ratio] 13.7 % Normal 12.0-14.8 [facility] Comment on above: Performed By: #### L IPASE, BMP, HS TROP, HEPATIC, CBC #### [facility] [address] [place] [address] [place] Hematocrit (Bld) [Volume fraction] 45.6 % Normal 38.8-50.0 [facility] Comment on above: Performed By: #### L IPASE, BMP, HS TROP, HEPATIC, CBC #### [facility] [address] [place] [address] [place] Hemoglobin (Bld) [Mass/Vol] 15.5 g/dL Normal 13.0-17.0 [facility] Comment on above: Performed By: #### L IPASE, BMP, HS TROP, HEPATIC, CBC #### [address] Lymphocytes (Bld) [#/Vol] 0.7 10*3/uL Low 1.00-4.8 [facility] Comment on above: Performed By: #### L IPASE, BMP, HS TROP, HEPATIC, CBC #### [address] Lymphocytes/100 WBC (Bld) 9.3 % Normal . [facility] Comment on above: Performed By: #### L IPASE, BMP, HS TROP, HEPATIC, CBC #### [address] MCH (RBC) [Entitic mass] 31.4 pg Normal 27.5-35.2 [facility] Comment on above: Performed By: #### L IPASE, BMP, HS TROP, HEPATIC, CBC #### [address] MCV (RBC) [Entitic vol] 92.1 fL Normal 83.5-101 [facility] Comment on above: Performed By: #### L IPASE, BMP, HS TROP, HEPATIC, CBC #### [address] Mean Corpuscular HGB Conc 34.0 g/dL Normal 32.5-35.6 [facility] Comment on above: Performed By: #### L IPASE, BMP, HS TROP, HEPATIC, CBC #### [place] [address] [place] Monocytes (Bld) [#/Vol] 0.7 10*3/uL Normal 0.0-0.8 [facility] Comment on above: Performed By: #### L IPASE, BMP, HS TROP, HEPATIC, CBC #### [place] [address] [place] Monocytes/100 WBC (Bld) 14.81 % Normal 0.00-20.00 [facility] Comment on above: Performed By: #### L IPASE, BMP, HS TROP, HEPATIC, CBC #### [facility] [address] Monocytes/100 WBC (Bld) 8.9 % Normal . [facility] Comment on above: Performed By: #### L IPASE, BMP, HS TROP, HEPATIC, CBC #### [facility] [address] Neutrophils (Bld) [#/Vol] 6.3 10*3/uL Normal 1.8-7.7 [facility] Comment on above: Performed By: #### L IPASE, BMP, HS TROP, HEPATIC, CBC #### [address] Neutrophils/100 WBC (Bld) 80.9 % Normal . [facility] Comment on above: Performed By: #### L IPASE, BMP, HS TROP, HEPATIC, CBC #### [address] NRBC% 0.1 /100{WBC} Normal 0-0.5 [facility] Comment on above: Performed By: #### L IPASE, BMP, HS TROP, HEPATIC, CBC #### [address] Platelet mean volume (Bld) [Entitic vol] 8.8 fL Normal 6.6-10.1 [facility] Comment on above: Performed By: #### L IPASE, BMP, HS TROP, HEPATIC, CBC #### [place] [address] [place] Platelets (Bld) [#/Vol] 141 10*3/uL Low 150-450 [facility] Comment on above: Performed By: #### L IPASE, BMP, HS TROP, HEPATIC, CBC #### [place] [address] [place] RBC (Bld) [#/Vol] 4.95 10*6/uL Normal 3.90-5.60 [facility] Comment on above: Performed By: #### L IPASE, BMP, HS TROP, HEPATIC, CBC #### [facility] [address] [place] [address] [place] WBC (Bld) [#/Vol] 7.8 10*3/uL Normal 4.1-10.5 [facility] Comment on above: Performed By: #### L IPASE, BMP, HS TROP, HEPATIC, CBC #### [facility] [address] Creatinine [Mass/volume] in Serum or PlasmaOrdered By: Artie Mejia on 03-04-2023 Creatinine [Mass/Vol] 1.28 mg/dL 0.70-1.30 [facility] ECG 12 lead ECGon 03-04-2023 ECG 12 lead ECG [facility] [address] [place] [address] [place] [address] Electrocardiograph Report Signed Patient: Roxy Dolan MR#: [id number] : 1950 Acct:[id number] Age/Sex: 72 / M ADM Date: 03/04/23 Loc: ER Room: Type: PRE ER Attending Dr: Ordering Provider: Artie Mejia DO Date of Service: 03/04/2302/19/1315 ECG/ECG 12 lead ECG: Abdominal Pain Copies to: Test Reason : Blood Pressure : 180/086 mmHG Vent. Rate : 052 BPM Atrial Rate : 052 BPM P-R Int : 144 ms QRS Dur : 094 ms QT Int : 472 ms P-R-T Axes : 078 073 064 degrees QTc Int : 438 ms Sinus bradycardia nonspecific st findings Confirmed by Artie Mejia DO ([id number]) on 03/04/2023 2:52:16 PM Referred By: Electronically Signed By:Artie Mejia DO Transcribed By: MUS Signed By Artie Mejia DO 1452 Normal [facility] Eosinophils Auto (Bld) [#/Vo l]Ordered By: Artie Mejia on 03-04-2023 Eosinophils (Bld) [#/Vol] 0.0 10*3/uL 0.0-0.45 [facility] Eosinophils/100 WBC Auto (Bl d)Ordered By: Artie Mejia on 03-04-2023 Eosinophils/100 WBC (Bld) 0.6 % . [facility] Erythrocyte distribution wid th Auto (RBC) [Ratio]Ordered By: Artie Mejia on 03-04-2023 Erythrocyte distribution width (RBC) [Ratio] 13.7 % 12.0-14.8 [facility] Globulin Calc (S) [Mass/Vol] Ordered By: Artie Mejia on 03-04-2023 Globulin (S) [Mass/Vol] 2.2 g/dL [facility] Glucose [Mass/volume] in Ser um or PlasmaOrdered By: Artie Mejia on 03-04-2023 Glucose [Mass/Vol] 103 mg/dL 70-100 [facility] Comment on above: ADA recommended refe rence rangeRandom Glucose Reference Range is dependent on time and content of last meal. Glucose of more than 200 mg/dL in a nonstressed, ambulatory subject supports the diagnosis of Diabetes Mellitus. Hematocrit Auto (Bld) [Volum e fraction]Ordered By: Artie Mejia on 03-04-2023 Hematocrit (Bld) [Volume fraction] 45.6 % 38.8-50.0 [facility] Hemoglobin [Mass/volume] in BloodOrdered By: Artie Mejia on 03-04-2023 Hemoglobin (Bld) [Mass/Vol] 15.5 g/dL 13.0-17.0 [facility] Hepatic Panelon 03-04-2023 Albumin [Mass/Vol] 4.8 g/dL Normal 3.5-5.7 [facility] Comment on above: Performed By: #### L IPASE, BMP, HS TROP, HEPATIC, CBC #### [facility] [address] [place] [address] [place] Albumin/Globulin [Mass ratio] 2.2 {ratio} Normal [facility] Comment on above: Performed By: #### L IPASE, BMP, HS TROP, HEPATIC, CBC #### [facility] [address] [place] [address] [place] ALP [Catalytic activity/Vol] 51 U/L Normal 34-104 [facility] Comment on above: Performed By: #### L IPASE, BMP, HS TROP, HEPATIC, CBC #### [facility] [address] [place] [address] ALT [Catalytic activity/Vol] 20 U/L Normal 7-52 [facility] Comment on above: Performed By: #### L IPASE, BMP, HS TROP, HEPATIC, CBC #### [address] AST [Catalytic activity/Vol] 25 U/L Normal 13-39 [facility] Comment on above: Performed By: #### L IPASE, BMP, HS TROP, HEPATIC, CBC #### [address] Bilirubin [Mass/Vol] 1.1 mg/dL High 0.3-1.0 [facility] Comment on above: Performed By: #### L IPASE, BMP, HS TROP, HEPATIC, CBC #### [address] Bilirubin,Indirect 0.9 mg/dL Normal [facility] Comment on above: Performed By: #### L IPASE, BMP, HS TROP, HEPATIC, CBC #### [address] Bilirubin.indirect [Mass/Vol] 0.20 mg/dL High 0.03-0.18 [facility] Comment on above: Performed By: #### L IPASE, BMP, HS TROP, HEPATIC, CBC #### [address] Globulin (S) [Mass/Vol] 2.2 g/dL Normal [facility] Comment on above: Performed By: #### L IPASE, BMP, HS TROP, HEPATIC, CBC #### [address] Protein [Mass/Vol] 7.0 g/dL Normal 6.4-8.9 [facility] Comment on above: Performed By: #### L IPASE, BMP, HS TROP, HEPATIC, CBC #### [address] [place] [address] [facility] Ketones Auto test strip (U) [Mass/Vol]Ordered By: Artie Mejia on 03-04-2023 Ketones (U) [Mass/Vol] Trace Negative [facility] Leukocytes [#/volume] correc cherie for nucleated erythrocytes in Blood by Automated counOrdered By: Artie Mejia on 03-04-2023 WBC corrected for nucl RBC Auto (Bld) [#/Vol] 7.8 10*3/uL 4.1-10.5 [facility] Lipaseon 03-04-2023 Lipase [Catalytic activity/Vol] 30.0 U/L Normal 11.0-82.0 [facility] Comment on above: Result Comment: PERF ORMED BY: [place] [address] PATHOLOGIST [employer] ALEXA CASTRO M.D. Performed By: #### L IPASE, BMP, HS TROP, HEPATIC, CBC #### [facility] [address] [place] [address] Lipase [Enzymatic activity/v olume] in Serum or PlasmaOrdered By: Artie Mejia on 03-04-2023 Lipase [Catalytic activity/Vol] 30.0 U/L 11.0-82.0 [facility] Lymphocytes Auto (Bld) [#/Vo l]Ordered By: Artie Mejia on 03-04-2023 Lymphocytes (Bld) [#/Vol] 0.7 10*3/uL 1.00-4.8 [facility] Lymphocytes/100 WBC Auto (Bl d)Ordered By: Artie Mejia on 03-04-2023 Lymphocytes/100 WBC (Bld) 9.3 % . [facility] MCH Auto (RBC) [Entitic mass ]Ordered By: Artie Mejia on 03-04-2023 MCH (RBC) [Entitic mass] 31.4 pg 27.5-35.2 [facility] MCHC Auto (RBC) [Mass/Vol]Or dered By: Artie Mejia on 03-04-2023 MCHC (RBC) [Mass/Vol] 34.0 g/dL 32.5-35.6 [facility] MCV Auto (RBC) [Entitic vol] Ordered By: Artie Mejia on 03-04-2023 MCV (RBC) [Entitic vol] 92.1 fL 83.5-101 [facility] Monocyte distribution width [Entitic volume] in Blood by AutomatedOrdered By: Artie Mejia on 03-04-2023 Monocyte distribution width Auto (Bld) [Entitic vol] 14.81 % 0.00-20.00 [facility] Monocytes Auto (Bld) [#/Vol] Ordered By: Artie Mejia on 03-04-2023 Monocytes (Bld) [#/Vol] 0.7 10*3/uL 0.0-0.8 [facility] Monocytes/100 WBC Auto (Bld) Ordered By: Artie Mejia on 03-04-2023 Monocytes/100 WBC (Bld) 8.9 % . [facility] Neutrophils Auto (Bld) [#/Vo l]Ordered By: Artie Mejia on 03-04-2023 Neutrophils (Bld) [#/Vol] 6.3 10*3/uL 1.8-7.7 [facility] Neutrophils/100 WBC Auto (Bl d)Ordered By: Artie Mejia on 03-04-2023 Neutrophils/100 WBC (Bld) 80.9 % . [facility] Nitrite Test strip Ql (U)Ord ered By: Artie Mejia on 03-04-2023 Nitrite Ql (U) Negative Negative [facility] No Panel InformationOrdered By: Artie Mejia on 03-04-2023 Estimated GFR (CKD-EPI) > 60.0 mL/Min [facility] Creatinine Clearance (Chem 51.95 [facility] Nucleated erythrocytes [Pres ence] in Blood by Automated countOrdered By: Artie Mejia on 03-04-2023 Nucleated RBC Auto Ql (Bld) 0.1 /100{WBC} 0-0.5 [facility] Platelet mean volume Auto (B ld) [Entitic vol]Ordered By: Artie Mejia on 03-04-2023 Platelet mean volume (Bld) [Entitic vol] 8.8 fL 6.6-10.1 [facility] Platelets Auto (Bld) [#/Vol] Ordered By: Artie Mejia on 03-04-2023 Platelets (Bld) [#/Vol] 141 10*3/uL 150-450 [facility] Potassium [Moles/volume] in Serum or PlasmaOrdered By: Artie Mejia on 03-04-2023 Potassium [Moles/Vol] 5.1 mmol/L 3.5-5.1 [facility] Protein Auto test strip (U) [Mass/Vol]Ordered By: Artie Mejia on 03-04-2023 Protein (U) [Mass/Vol] Negative Negative [facility] Protein [Mass/volume] in Ser um or PlasmaOrdered By: Artie Mejia on 03-04-2023 Protein [Mass/Vol] 7.0 g/dL 6.4-8.9 [facility] RBC Auto (Bld) [#/Vol]Ordere d By: Artie Mejia on 03-04-2023 RBC (Bld) [#/Vol] 4.95 10*6/uL 3.90-5.60 [facility] Serum or plasma albumin/glob ulin mass ratioOrdered By: Artie Mejia on 03-04-2023 Albumin/Globulin [Mass ratio] 2.2 {ratio} [facility] Serum or plasma anion gap de terminationOrdered By: Artie Mejia on 03-04-2023 Anion gap [Moles/Vol] 8.1 mmol/L 6.0-15.0 [facility] Serum or plasma non-glucuron idated bilirubin measurement (mass/volume)Ordered By: Artie Mejia on 03-04-2023 Bilirubin.indirect [Mass/Vol] 0.9 mg/dL [facility] Sodium [Moles/volume] in Ser um or PlasmaOrdered By: Artie Mejia on 03-04-2023 Sodium [Moles/Vol] 140 mmol/L 136-145 [facility] Specific gravity Auto test s trip (U) [Rel density]Ordered By: Artie Mejia on 03-04-2023 Specific gravity (U) [Rel density] 1.032 1.001-1.030 [facility] Troponin I High Sensitivityo n 03-04-2023 Troponin I High Sensitivity 3.0 pg/mL Normal 0.0-20.0 [facility] Comment on above: Result Comment: PERF ORMED BY: [place] [address] PATHOLOGIST [employer] ALEXA CASTRO M.D. Performed By: #### L IPASE, BMP, HS TROP, HEPATIC, CBC #### [facility] [address] [place] [address] Troponin I.cardiac [Mass/vol ume] in Serum or Plasma by Detection limit <= 0.01 ng/Ordered By: Artie Mejia on 03-04-2023 Troponin I.cardiac DL <= 0.01 ng/mL [Mass/Vol] 3.0 pg/mL 0.0-20.0 [facility] Urea nitrogen [Mass/volume] in Serum or PlasmaOrdered By: Artie Mejia on 03-04-2023 Urea nitrogen [Mass/Vol] 19 mg/dL 03-23 [facility] Urinalysison 03-04-2023 Appearance (U) Clear Normal Clear [facility] Comment on above: Order Comment: Name Collection Type:: Clean-Voided Midstream Performed By: #### U A #### [facility] [address] [place] [address] Bilirubin,Urine Negative Normal Negative [facility] Comment on above: Order Comment: Name Collection Type:: Clean-Voided Midstream Performed By: #### U A #### [facility] [address] [place] [address] [place] Color (U) Yellow Normal Yellow [facility] Comment on above: Order Comment: Name Collection Type:: Clean-Voided Midstream Performed By: #### U A #### [facility] [address] [place] [address] [place] Glucose Ql (U) Normal Normal Normal [facility] Comment on above: Order Comment: Name Collection Type:: Clean-Voided Midstream Performed By: #### U A #### [address] Ketones Ql (U) Trace High Negative [facility] Comment on above: Order Comment: Name Collection Type:: Clean-Voided Midstream Performed By: #### U A #### [address] Leukocyte esterase Test strip Ql (U) Negative Normal Negative [facility] Comment on above: Order Comment: Name Collection Type:: Clean-Voided Midstream Performed By: #### U A #### [address] Nitrite,Urine Negative Normal Negative [facility] Comment on above: Order Comment: Name Collection Type:: Clean-Voided Midstream Performed By: #### U A #### [address] Occult Blood,Urine Negative Normal Negative [facility] Comment on above: Order Comment: Name Collection Type:: Clean-Voided Midstream Result Comment: PERF ORMED BY: [place] [address] PATHOLOGIST [employer] ALEXA CASTRO M.D. Performed By: #### U A #### [address] pH (U) 5.5 [pH] Normal 5.0-9.0 [facility] Comment on above: Order Comment: Name Collection Type:: Clean-Voided Midstream Performed By: #### U A #### [place] [address] [place] Protein,Urine Negative Normal Negative [facility] Comment on above: Order Comment: Name Collection Type:: Clean-Voided Midstream Performed By: #### U A #### [address] Specificy [place],Urine 1.032 High 1.001-1.030 [facility] Comment on above: Order Comment: Name Collection Type:: Clean-Voided Midstream Performed By: #### U A #### [address] Urobilinogen,Urine Normal Normal Normal [facility] Comment on above: Order Comment: Name Collection Type:: Clean-Voided Midstream Performed By: #### U A #### [facility] [address] Urine clarity by refractomet ry automatedOrdered By: Artie Mejia on 03-04-2023 Clarity Refractometry automated (U) Clear Clear [facility] Urine glucose measurement by automated test strip (mass/volume)Ordered By: Artie Mejia on 03-04-2023 Glucose Auto test strip (U) [Mass/Vol] Normal mg/dL Normal [facility] Urine hemoglobin detection b y automated test stripOrdered By: Artie Mejia on 03-04-2023 Hemoglobin Auto test strip Ql (U) Negative Negative [facility] Urine leukocyte esterase det ection by automated test stripOrdered By: Artie Mejia on 03-04-2023 Leukocyte esterase Auto test strip Ql (U) Negative Negative [facility] Urobilinogen Auto test strip (U) [Mass/Vol]Ordered By: Artie Mejia on 03-04-2023 Urobilinogen (U) [Mass/Vol] Normal mg/dL Normal [facility] WBC Auto (Bld) [#/Vol]Ordere d By: Artie Mejia on 03-04-2023 WBC (Bld) [#/Vol] 7.8 10*3/uL 4.1-10.5 [facility] pH Auto test strip (U)Ordere d By: Artie Mejia on 03-04-2023 pH (U) 5.5 [pH] 5.0-9.0 [facility] Ambulatory Visit Summaryon 0 02-22-2023 Ambulatory Visit Summary ROXY DOLAN :1950 Visit Date:02/22/2023 Ambulatory Visit Instructions Your Diagnosis Organic impotence BPH with urinary obstruction Family history of prostate cancer Prostate nodule Tests Performed Urnls Dip Stick Auto w/o Microscopy POC 91287 MRI Pelvis (Soft Tissue) w/ + w/o contrast -- Results Pending -- Please visit your patient portal for your results or contact your primary care physician. Your Care Team Attending Physician - Sincere SHETH MD Primary Care Physician - NIKI BUENROSTRO CNP This Is Your Medications List sildenafil (sildenafil 100 mg Tab) Contact prescribing physician if questions or concerns aspirin multivitamin (Multi Vitamin+) simvastatin Procedures Performed History of knee surgery, Tonsillectomy. Discharge Vitals Heart Rate (Peripheral) 70 Respiratory Rate 16 Blood Pressure 129/75 Height 173 cm Height 68 in Weight 75 kg Weight 165 lb BMI 25.06 What to do next You Need to Schedule the Following Appointments Follow Up with Sincere SHETH MD, ISIDORO When: Where: [facility] [address], [place] [address]- Medications What How Much When Instructions Unchanged sildenafil (sildenafil 100 mg Tab) 1 Tablets By Mouth Every day Unchanged aspirin 81 Milligram Contact prescribing physician if questions or concerns Unchanged multivitamin (Multi Vitamin+) Contact prescribing physician if questions or concerns Unchanged simvastatin 40 Milligram By Mouth Contact prescribing physician if questions or concerns Test Results Urnls Dip Stick Auto w/o Microscopy POC 08884 (02/22/2023) Bilirubin Urine Dipstick - Negative Blood Urine Dipstick - Negative Glucose Urine Dipstick - Negative Ketones Urine Dipstick - Negative Leukocytes Urine Dipstick - Negative Nitrite Urine Dipstick - Negative Protein Urine Dipstick - Negative Specific [place] Urine Dipstick - >=1.030 Urine Appearance Urine Dipstick - Clear Urine Color Urine Dipstick - Yellow Urobilinogen Urine Dipstick - Normal 0.2-1 EU/dl pH Urine Dipstick - 5.5 Allergies No Known Medication Allergies Problems Ongoing - Any problem that you are currently receiving treatment for. BPH with urinary obstruction Family history of prostate cancer Hyperlipidemia Hypogonadism in male Nephrolithiasis Organic impotence Prostate nodule [employer] Transrectal Ultrasound-Guided Prostate Biopsy, Care After The following information offers guidance on how to care for yourself after your procedure. Your health care provider may also give you more specific instructions. If you have problems or questions, contact your health care provider. What can I expect after the procedure? After the procedure, it is common to have: ? Pain and discomfort near your rectum, especially while sitting. ? [place]-colored urine due to small amounts of blood in your urine. ? A burning feeling while urinating. ? Blood in your stool (feces) or bleeding from your rectum. ? Blood in your semen. Follow these instructions at home: Medicines ? Take [id number] and prescription medicines only as told by your health care provider. ? If you were given a sedative during your procedure, it can affect you for several hours. Do not drive or operate machinery until your health care provider says that it is safe. ? If you were prescribed an antibiotic medicine, take it as told by your health care provider. Do not stop using the antibiotic even if you start to feel better. Activity ? Return to your normal activities as told by your health care provider. Ask your health care provider what activities are safe for you. ? Ask your health care provider when it is okay for you to resume sexual activity. ? You may have to avoid lifting. Ask your health care provider how much you can safely lift. General instructions ? Drink enough fluid to keep your urine pale yellow. ? Watch your urine, stool, and semen for new or increased bleeding. ? Keep all follow-up visits. This is important. Contact a health care provider if: ? You have any of the following: ? Blood clots in your urine or stool. ? Blood in your urine more than 2 weeks after the procedure. ? Blood in your semen more than 2 months after the procedure. ? New or increased bleeding in your urine, stool, or semen. ? Severe pain in your abdomen. ? Your urine smells bad or unusual. ? You have trouble urinating. ? Your lower abdomen feels firm. ? You have problems getting an erection. ? You have nausea or you vomit. Get help right away if: ? You have a fever or chills. This could be a sign of infection. ? You have bright red urine. ? You have severe pain that does not get better with medicine. ? You cannot urinate. Summary ? After this procedure, it is common to simons (more content not included)... Normal [facility] Patient Educationon 02-23-20 Patient Education Oncology Transrectal Ultrasound-Guided Prostate Biopsy, Care After The following information offers guidance on how to care for yourself after your procedure. Your health care provider may also give you more specific instructions. If you have problems or questions, contact your health care provider. What can I expect after the procedure? After the procedure, it is common to have: ? Pain and discomfort near your rectum, especially while sitting. ? [place]-colored urine due to small amounts of blood in your urine. ? A burning feeling while urinating. ? Blood in your stool (feces) or bleeding from your rectum. ? Blood in your semen. Follow these instructions at home: Medicines ? Take krcl-ihz-digcjtb and prescription medicines only as told by your health care provider. ? If you were given a sedative during your procedure, it can affect you for several hours. Do not drive or operate machinery until your health care provider says that it is safe. ? If you were prescribed an antibiotic medicine, take it as told by your health care provider. Do not stop using the antibiotic even if you start to feel better. Activity ? Return to your normal activities as told by your health care provider. Ask your health care provider what activities are safe for you. ? Ask your health care provider when it is okay for you to resume sexual activity. ? You may have to avoid lifting. Ask your health care provider how much you can safely lift. General instructions ? Drink enough fluid to keep your urine pale yellow. ? Watch your urine, stool, and semen for new or increased bleeding. ? Keep all follow-up visits. This is important. Contact a health care provider if: ? You have any of the following: ? Blood clots in your urine or stool. ? Blood in your urine more than 2 weeks after the procedure. ? Blood in your semen more than 2 months after the procedure. ? New or increased bleeding in your urine, stool, or semen. ? Severe pain in your abdomen. ? Your urine smells bad or unusual. ? You have trouble urinating. ? Your lower abdomen feels firm. ? You have problems getting an erection. ? You have nausea or you vomit. Get help right away if: ? You have a fever or chills. This could be a sign of infection. ? You have bright red urine. ? You have severe pain that does not get better with medicine. ? You cannot urinate. Summary ? After this procedure, it is common to have pain and discomfort around your rectum, especially while sitting. ? You may have blood in your urine and stool after the procedure. ? It is common to have blood in your semen after this procedure. ? Get help right away if you have a fever or chills. This could be a sign of infection. This information is not intended to replace advice given to you by your health care provider. Make sure you discuss any questions you have with your health care provider. Document Revised: 02/09/2022 Document Reviewed: 02/09/2022 [employer] Patient Education ? 2022 [employer]. Transrectal Ultrasound-Guided Prostate Biopsy A transrectal ultrasound-guided prostate biopsy is a procedure to remove samples of prostate tissue for testing. The prostate is a walnut-sized gland that is located below the bladder and in front of the rectum. During this procedure, a small device (probe) is lubricated and put inside the rectum. The probe sends out sound waves that make a picture of the prostate and surrounding tissues (transrectal ultrasound). The images are used to help guide the process of removing the samples. The samples are taken to a lab to be checked for prostate cancer. This procedure is usually done to evaluate the prostate gland of men who have raised (elevated) levels of prostate-specific antigen (PSA), which can be a sign of prostate cancer or prostate enlargement related to aging (benign prostatic hyperplasia, or BPH). Tell a health care provider about: ? Any allergies you have. ? All medicines you are taking, including vitamins, herbs, eye drops, creams, and nohp-npn-nmudugk medicines. ? Any problems you or family members have had with anesthetic medicines. ? Any bleeding problems you have. ? Any surgeries you have had. ? Any medical conditions you have. ? Any prostate infections you have had. What are the risks? Generally, this is a safe procedure. However, problems may occur, including: ? Prostate infection. ? Bleeding from the rectum. ? Blood in the urine. ? Allergic reactions to medicines. ? Damage to surrounding structures such as blood vessels, organs, or muscles. ? Difficulty passing urine. ? Nerve damage. This is usually temporary. What happens before the procedure? Medicines Ask your health care provider about: ? Changing or stopping your regular medicines. This is especially important if you are taking diabetes medicines or blood thinners. ? Taking medicines such as aspirin (more content not included)... [facility] Pre-Certification Formon Pre-Certification Form [id number]# 1.00CD:[id number] [facility] Urology Office/Clinic Noteon 02-22-2023 Urology Office/Clinic Note Chief Complaint 2 month f/u HPI Staff 2 month f/u. Previous dx include BPH with urinary obstruction, family hx of prostate cancer (grandfather) and organic impotence. Pt is taking Sildenafil 100mg as needed. Dysuria: no Incomplete bladder emptying: no Hematuria: no Frequency: no Urgency: no Nocturia: 0-1x Stream: good steady Leaking: no Post void dripping: no Wearing pads/ Depends: no Urge incontinence: no Stress incontinence: no Incontinence without Sensory Awareness: no Abdominal pain: no Flank pain: no Sexual complaints: no History of Present Illness Tests reviewed: reviewed UA. I have reviewed the previous health record information and history for this patient from Dr. Sheth. I have reviewed and verified the staff HPI to be accurate for this encounter. There have been no associated fever, chills, flank pain, or blood in the urine. Denies any urinary infections since last encounter. Review of Systems PHQ Score Initial Depression Screen Score: 0 ROS - Provider Constitutional: denies weight loss, denies hot flashes. Eyes: denies eye problems. Gastrointestinal: denies nausea, denies vomiting. Cardiovascular: denies chest pain or angina. Integumentary: no dryness Musculoskeletal: denies musculoskeletal symptoms. ENMT: denies otolaryngeal symptoms. Respiratory: no shortness of breath. Heme/Lymph: denies easy bleeding tendency, denies easy bruising tendency. Psychiatric: no confusion, no anxiety. Genitourinary: See HPI. Physical Exam Vitals & Measurements HR: 70(Peripheral) RR: 16 BP: 129/75 HT: 68 in HT: 173 cm WT: 75 kg WT: 165 lb BMI: 25.06 General Appearance: alert, no distress, well nourished, well developed male. Genitourinary: normal scrotum, normal testes, normal urethra, normal epididymis, normal vas deferens/spermatic cord. Flank Pain: none. Bladder: nonpalpable. Prostate: 30 gm, R base to apex nodule. Assessment/Plan 1. 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 Working better than Cialis. No SEs. Happy with this med. 2. BPH with urinary obstruction (N40.1: Benign prostatic hyperplasia with lower urinary tract symptoms) PSA: 09/26/21 - 1.76 12/10/22 - 1.99 UA today negative for blood and infection. 3. Family history of prostate cancer (Z80.42: Family history of malignant neoplasm of prostate) Grandfather. 4. Prostate nodule (N40.2: Nodular prostate without lower urinary tract symptoms) KING today 30 gm, R base to apex nodule. Explained pt had an abnormal exam which could indicate prostate ca. -MRI of prostate. -Will schedule TRUS of Prostate with Biopsy. The procedural risks, benefits, details, and treatment alternatives have been discussed with the patient. These include minimal to severe bleeding, infection, blood in the semen, inability to urinate, and severe infection requiring hospitalization and IV antibiotics, among others. Full informed consent has been obtained. Will order Local anesthesia. Follow-up With When Contact Information SARA QIU, Sincere Plasencia, [facility] [address], [place] [address]- Additional Instructions: schedule MRI and TRUS/bx Patient Education Transrectal Ultrasound-Guided Prostate Biopsy, Care After Transrectal Ultrasound-Guided Prostate Biopsy IAracelis, personally scribed for Dr. Sheth on 02/22/2023 10:07:32. . Documentation recorded by the scribe, Aracelis Meza, accurately reflects the services(s) I performed and decisions made by me. Authenticated by Dr. Sheth on 02/22/2023 10:09:12. Problem List/Past Medical History Ongoing BPH with urinary obstruction Family history of prostate cancer Hyperlipidemia Hypogonadism in male Nephrolithiasis Organic impotence Prostate nodule Historical No qualifying data Procedure/Surgical History History of knee surgery, Tonsillectomy. Medications aspirin, 81 mg Multi Vitamin+ sildenafil 100 mg Tab, 100 mg= 1 tab(s), Oral, Daily, 4 refills simvastatin, 40 mg, Oral Allergies No Known Medication Allergies Social History Alcohol - Low Risk, 08/03/2019 Tobacco Former smoker, quit more than 30 days ago Tobacco Use:. Cigarettes, 12/11/2022 Family History Alzheimer's disease: Mother. Cancer of prostate: Grandparent. Leukemia: Father. Immunizations Vaccine Date Status SARS-CoV-2 (COVID-19) mRNA BNT-162b2 vax 11/01/2020 Recorded SARS-CoV-2 (COVID-19) mRNA BNT-162b2 vax 10/11/2020 Recorded Lab Results Ambulatory Point of Care Results Bilirubin Urine Dipstick: Negative (02/22/23 09:06:00) Blood Urine Dipstick: Negative (02/22/23 09:06:00) Glucose Urine Dipstick: Negative (02/22/23 09:06:00) Ketones Urine Dipstick: Negative (02/22/23 09:06:00) Leukocytes Urine Dipstick: Negative (02/22/23 09:06:00) Ni (more content not included)... Normal [facility] Comment on above: Result Comment: Elec tronically Signed By: Sincere SHETH MD\.br\Date and Time Signed: 02/22/23 10:09 EDT\.br\Electronically Co-Signed By: Aracelis Meza\.br\Date and Time Co-Signed: 02/22/23 10:07 EDT CBC AUTO DIFFon 01-01-2023 BASO # 0.0 103/ul Normal 0.0-0.1 [facility] Comment on above: Performed By: #### C BC #### [facility] [address] [address] [address] Licha Cortez Basophils/100 WBC (Bld) 0.7 % Normal 0.2-2.0 [facility] Comment on above: Performed By: #### C BC #### [facility] [address] [address] [address] Licha Cortez EO # 0.2 103/ul Normal 0.0-0.7 [facility] Comment on above: Performed By: #### C BC #### [facility] [address] [address] [address] Licha Cortez Eosinophils/100 WBC (Bld) 3.9 % Normal 0.9-7.0 [facility] Comment on above: Performed By: #### C BC #### [facility] [address] [place] [address] Dr. Licha Cortez Erythrocyte distribution width (RBC) [Ratio] 13.0 % Normal 11.0-15.0 [facility] Comment on above: Performed By: #### C BC #### [facility] [address] [place] [address] Dr. Licha Cortez Hematocrit (Bld) [Volume fraction] 45.8 % Normal 42.0-54.0 [facility] Comment on above: Performed By: #### C BC #### [facility] [address] [place] [address] Dr. Licha Cortez Hemoglobin (Bld) [Mass/Vol] 15.6 g/dL Normal 14.0-18.0 [facility] Comment on above: Performed By: #### C BC #### [facility] [address] [place] [address] Dr. Licha Cortez IG # 0.01 10e3/ul Normal 0.00-0.03 [facility] Comment on above: Performed By: #### C BC #### [facility] [address] [place] [address] Dr. Licha Cortez IG % 0.2 % Normal 0.0-0.5 [facility] Comment on above: Performed By: #### C BC #### [facility] [address] [place] [address] Dr. Licha Cortez LYMPH # 1.4 103/ul Normal 1.2-3.8 [facility] Comment on above: Performed By: #### C BC #### [facility] [address] [place] [address] Dr. Licha Cortez Lymphocytes/100 WBC (Bld) 31.4 % Normal 20.5-60.0 [facility] Comment on above: Performed By: #### C BC #### [facility] [address] [place] [address] Dr. Licha Cortez MANUAL DIFF REQ NO Normal [facility] Comment on above: Performed By: #### C BC #### [facility] [address] [place] [address] Dr. Licha Cortez MCH (RBC) [Entitic mass] 31.5 pg Normal 25.9-34.0 [facility] Comment on above: Performed By: #### C BC #### [facility] [address] [place] [address] Dr. Licha Cortez MCHC (RBC) [Mass/Vol] 34.1 g/dL Normal 29.9-35.2 [facility] Comment on above: Performed By: #### C BC #### [facility] [address] [place] [address] Dr. Licha Cortez MCV (RBC) [Entitic vol] 92.3 fL Normal 80.0-94.0 [facility] Comment on above: Performed By: #### C BC #### [facility] [address] [place] [address] Dr. Licha Cortez MONO # 0.5 103/ul Normal 0.3-0.8 [facility] Comment on above: Performed By: #### C BC #### [facility] [address] [place] [address] Dr. Licha Cortez Monocytes/100 WBC (Bld) 10.9 % Normal 1.7-12.0 [facility] Comment on above: Performed By: #### C BC #### [facility] [address] [place] [address] Dr. Licha Cortez NEUT # 2.3 103/ul Normal 1.4-6.5 [facility] Comment on above: Performed By: #### C BC #### [facility] [address] [place] [address] Dr. Licha Cortez Neutrophils/100 WBC (Bld) 52.9 % Normal 43.0-75.0 [facility] Comment on above: Performed By: #### C BC #### [facility] [address] [place] [address] Dr. Licha Cortez Platelet mean volume (Bld) [Entitic vol] 10.3 fL Normal 9.5-13.5 [facility] Comment on above: Performed By: #### C BC #### [facility] [address] [place] [address] Dr. Licha Cortez PLT 145 103/ul Critically low 150-450 [facility] Comment on above: Performed By: #### C BC #### [facility] [address] [address] [address] Licha Cortez RBC 4.96 106/ul Normal 4.70-6.10 [facility] Comment on above: Performed By: #### C BC #### [facility] [address] [address] [address] Licha Cortez WBC 4.4 103/ul Normal 4.0-11.0 [facility] Comment on above: Performed By: #### C BC #### [facility] [address] [address] [address] Licha Cortez LIPID PROFILEon 01-01-2023 CHOL-HDL RATIO NORM SEE BELOW Normal [facility] Comment on above: Result Comment: 3.3 - 4.4 LOW RISK 4.4 - 7.1 AVERAGE RISK 7.1 - 11.0 MODERATE RISK >11.0 HIGH RISK Performed By: #### C MP, TSH, LIPID #### [facility] [address] [place] [address] Dr. Licha Cortez Cholesterol [Mass/Vol] 162 mg/dL Normal <=200 [facility] Comment on above: Performed By: #### C MP, TSH, LIPID #### [facility] [address] [place] [address] Dr. Licha Cortez Cholesterol in HDL [Mass/Vol] 49 mg/dL Normal 40-60 [facility] Comment on above: Performed By: #### C MP, TSH, LIPID #### [facility] [address] [address] [address] Licha Cortez Cholesterol in LDL [Mass/Vol] 97.0 mg/dL Normal [facility] Comment on above: Performed By: #### C MP, TSH, LIPID #### [facility] [address] [place] [address] Dr. Licha Cortez Cholesterol.total/Adri sterol in HDL [Mass ratio] 3.3 {ratio} Normal [facility] Comment on above: Performed By: #### C MP, TSH, LIPID #### [facility] [address] [address] [address] Licha Cortez HDL NORMAL > or = 60 mg/dl - LO W CARDIOVASCULAR RISK <40 mg/dl - HIGH CARDIOVASCULAR RISK Normal [facility] Comment on above: Performed By: #### C MP, TSH, LIPID #### [facility] [address] [address] [address] Licha Cortez LDL CALC NORMAL SEE BELOW Normal [facility] Comment on above: Result Comment: <100 mg/dl OPTIMAL 100 - 129 mg/dl NEAR OR ABOVE OPTIMAL 130 - 159 mg/dl BORDERLINE HIGH 160 - 189 mg/dl HIGH >190 mg/dl VERY HIGH Performed By: #### C MP, TSH, LIPID #### [facility] [address] [address] [address] Licha Cortez Triglyceride [Mass/Vol] 80 mg/dL Normal <=150 T [facility] Comment on above: Performed By: #### C MP, TSH, LIPID #### [facility] [address] [address] [address] Licha Cortez VLDL CALC 16.0 mg/dL Normal [facility] Comment on above: Performed By: #### C MP, TSH, LIPID #### [facility] [address] [address] [address] Licha Cortez PROF 14(COMP METB)on 023 Albumin [Mass/Vol] 3.8 g/dL Normal 3.4-5.0 [facility] Comment on above: Performed By: #### C MP, TSH, LIPID #### [facility] [address] [address] [address] Licha Cortez Albumin/Globulin [Mass ratio] 1.3 {ratio} Normal [facility] Comment on above: Performed By: #### C MP, TSH, LIPID #### [facility] [address] [address] [address] Licha Cortez ALP [Catalytic activity/Vol] 60 U/L Normal 46-116 [facility] Comment on above: Performed By: #### C MP, TSH, LIPID #### [facility] [address] [address] [address] Licha Cortez ALT [Catalytic activity/Vol] 33 U/L Normal 16-63 [facility] Comment on above: Performed By: #### C MP, TSH, LIPID #### [facility] [address] [address] [address] Licha Cortez Anion gap [Moles/Vol] 7.0 mmol/L Normal [facility] Comment on above: Performed By: #### C MP, TSH, LIPID #### [facility] [address] [place] [address] Dr. Licha Cortez AST [Catalytic activity/Vol] 27 U/L Normal 15-37 [facility] Comment on above: Performed By: #### C MP, TSH, LIPID #### [facility] [address] [place] [address] Dr. Licha Cortez Bilirubin [Mass/Vol] 0.8 mg/dL Normal 0.2-1.0 [facility] Comment on above: Performed By: #### C MP, TSH, LIPID #### [facility] [address] [place] [address] Dr. Licha Crotez Calcium [Mass/Vol] 8.7 mg/dL Normal 8.5-10.1 [facility] Comment on above: Performed By: #### C MP, TSH, LIPID #### [facility] [address] [place] [address] Dr. Licha Cortez Chloride [Moles/Vol] 106 mmol/L Normal 98-107 [facility] Comment on above: Performed By: #### C MP, TSH, LIPID #### [facility] [address] [address] [address] Licha Cortez CO2 [Moles/Vol] 30.5 mmol/L Normal 21.0-32.0 [facility] Comment on above: Performed By: #### C MP, TSH, LIPID #### [facility] [address] [place] [address] Dr. Licha Cortez Creatinine [Mass/Vol] 0.88 mg/dL Normal 0.70-1.30 [facility] Comment on above: Performed By: #### C MP, TSH, LIPID #### [facility] [address] [address] [address] Licha Cortez EGFR-AF DJIBOUTIAN >60 Normal >=60 [facility] Comment on above: Performed By: #### C MP, TSH, LIPID #### [facility] [address] [address] [address] Licha Cortez EGFR-NON AF DJIBOUTIAN >60 Normal >=60 [facility] Comment on above: Performed By: #### C MP, TSH, LIPID #### [facility] [address] [address] [address] Licha Cortez Globulin (S) [Mass/Vol] 3.0 g/dL Normal [facility] Comment on above: Performed By: #### C MP, TSH, LIPID #### [facility] [address] [address] [address] Licha Cortez Glucose [Mass/Vol] 107 mg/dL Critically high 74-106 [facility] Comment on above: Performed By: #### C MP, TSH, LIPID #### [facility] [address] [address] [address] Licha Cortez Potassium [Moles/Vol] 4.5 mmol/L Normal 3.5-5.1 [facility] Comment on above: Performed By: #### C MP, TSH, LIPID #### [facility] [address] [address] [address] Licha Cortez Protein [Mass/Vol] 6.8 g/dL Normal 6.4-8.2 [facility] Comment on above: Performed By: #### C MP, TSH, LIPID #### [facility] [address] [address] [address] Licha Cortez Sodium [Moles/Vol] 139 mmol/L Normal 136-145 [facility] Comment on above: Performed By: #### C MP, TSH, LIPID #### [facility] [address] [address] [address] Licha Cortez Urea nitrogen [Mass/Vol] 14.0 mg/dL Normal 7.0-18.0 [facility] Comment on above: Performed By: #### C MP, TSH, LIPID #### [facility] [address] [address] [address] Licha Cortez Urea nitrogen/Creatinine [Mass ratio] 15.9 mg/mg Normal [facility] Comment on above: Performed By: #### C MP, TSH, LIPID #### [facility] [address] [address] [address] Licha Cortez TSHon 01-01-2023 TSH 3.002 uIU/mL Normal 0.358-3.740 [facility] Comment on above: Performed By: #### C MP, TSH, LIPID #### [facility] [address] [address] [address] Licha Cortez Lab Reportson 12-17-2022 Lab Reports [id number] Normal [facility] Ambulatory Visit Summaryon 0 12-11-2022 Ambulatory Visit Summary ROXY DOLAN :1950 Visit Date:12/11/2022 Ambulatory Visit Instructions Your Diagnosis BPH with urinary obstruction Family history of prostate cancer Organic impotence Tests Performed Urnls Dip Stick Auto w/o Microscopy POC 12157 Your Care Team Attending Physician - Sincere SHETH MD Primary Care Physician - NIKI BUENROSTRO CNP This Is Your Medications List sildenafil (sildenafil 100 mg Tab) Contact prescribing physician if questions or concerns aspirin multivitamin (Multi Vitamin+) simvastatin [Image Removed: STOP]Stop taking these medications tadalafil (Cialis 20 mg Tab) Procedures Performed History of knee surgery, Tonsillectomy. Discharge Vitals Heart Rate (Peripheral) 56 Respiratory Rate 16 Blood Pressure 140/76 Height 173 cm Height 68 in Weight 75 kg Weight 165 lb BMI 25.06 What to do next Scheduled Follow-Up Appointments Wednesday 9:30 AM EDT With: SARA QIU, Sincere Plasencia Where: [facility] Normal [facility] Patient Educationon 12-12-19 23 Patient Education Urology Benign Prostatic Hyperplasia Benign prostatic hyperplasia (BPH) is an enlarged prostate gland that is caused by the normal aging process and not by cancer. The prostate is a walnut-sized gland that is involved in the production of semen. It is located in front of the rectum and below the bladder. The bladder stores urine and the urethra is the tube that carries the urine out of the body. The prostate may get bigger as a man gets older. An enlarged prostate can press on the urethra. This can make it harder to pass urine. The build-up of urine in the bladder can cause infection. Back pressure and infection may progress to bladder damage and kidney (renal) failure. What are the causes? This condition is part of a normal aging process. However, not all men develop problems from this condition. If the prostate enlarges away from the urethra, urine flow will not be blocked. If it enlarges toward the urethra and compresses it, there will be problems passing urine. What increases the risk? This condition is more likely to develop in men over the age of 50 years. What are the signs or symptoms? Symptoms of this condition include: ? Getting up often during the night to urinate. ? Needing to urinate frequently during the day. ? Difficulty starting urine flow. ? Decrease in size and strength of your urine stream. ? Leaking (dribbling) after urinating. ? Inability to pass urine. This needs immediate treatment. ? Inability to completely empty your bladder. ? Pain when you pass urine. This is more common if there is also an infection. ? Urinary tract infection (UTI). How is this diagnosed? This condition is diagnosed based on your medical history, a physical exam, and your symptoms. Tests will also be done, such as: ? A post-void bladder scan. This measures any amount of urine that may remain in your bladder after you finish urinating. ? A digital rectal exam. In a rectal exam, your health care provider checks your prostate by putting a lubricated, gloved finger into your rectum to feel the back of your prostate gland. This exam detects the size of your gland and any abnormal lumps or growths. ? An exam of your urine (urinalysis). ? A prostate specific antigen (PSA) screening. This is a blood test used to screen for prostate cancer. ? An ultrasound. This test uses sound waves to electronically produce a picture of your prostate gland. Your health care provider may refer you to a specialist in kidney and prostate diseases (urologist). How is this treated? Once symptoms begin, your health care provider will monitor your condition (active surveillance or watchful waiting). Treatment for this condition will depend on the severity of your condition. Treatment may include: ? Observation and yearly exams. This may be the only treatment needed if your condition and symptoms are mild. ? Medicines to relieve your symptoms, including: ? Medicines to shrink the prostate. ? Medicines to relax the muscle of the prostate. ? Surgery in severe cases. Surgery may include: ? Prostatectomy. In this procedure, the prostate tissue is removed completely through an open incision or with a laparoscope or robotics. ? Transurethral resection of the prostate (TURP). In this procedure, a tool is inserted through the opening at the tip of the penis (urethra). It is used to cut away tissue of the inner core of the prostate. The pieces are removed through the same opening of the penis. This removes the blockage. ? Transurethral incision (TUIP). In this procedure, small cuts are made in the prostate. This lessens the prostate's pressure on the urethra. ? Transurethral microwave thermotherapy (TUMT). This procedure uses microwaves to create heat. The heat destroys and removes a small amount of prostate tissue. ? Transurethral needle ablation (TUNA). This procedure uses radio frequencies to destroy and remove a small amount of prostate tissue. ? Interstitial laser coagulation (ILC). This procedure uses a laser to destroy and remove a small amount of prostate tissue. ? Transurethral electrovaporization (TUVP). This procedure uses electrodes to destroy and remove a small amount of prostate tissue. ? Prostatic urethral lift. This procedure inserts an implant to push the lobes of the prostate away from the urethra. Follow these instructions at home: ? Take canv-yey-aurbhnn and prescription medicines only as told by your health care provider. ? Monitor your symptoms for any changes. Contact your health care provider with any changes. ? Avoid drinking large amounts of liquid before going to bed or out in public. ? Avoid or reduce how much caffeine or alcohol you drink. ? Give yourself time when you urinate. ? Keep all follow-up visits as told by your health care provider. This is important. Contact a health care provider if: ? You have unexplained back pain. ? Your symptoms do not get better with treatment. ? You d (more content not included)... Normal [facility] Urology Office/Clinic Noteon 12-11-2022 Urology Office/Clinic Note Chief Complaint 1yr PSA HPI Staff 1yr PSA due to Family Hx of Prostate Cancer (grandparent). Additional DX: BPH & Organic Impotence *Cialis 20mg PRN therapy. PSA done 12/10/22- 1. Does not think Cialis is working well. Able to get erection. Unable to maintain it. No urinary concerns at this time. History of Present Illness Tests Reviewed: Reviewed UA. I have reviewed and verified the staff HPI to be accurate for this encounter. I have reviewed the previous health record information and history for this patient from Dr. Sheth There have been no associated fever, chills, flank pain, or blood in the urine. Denies any urinary infections since last encounter. Review of Systems PHQ Score Initial Depression Screen Score: 0 ROS - Provider Constitutional: denies weight loss, denies hot flashes. Eyes: denies eye problems. Gastrointestinal: denies nausea, denies vomiting. Cardiovascular: denies chest pain or angina. Integumentary: no dryness Musculoskeletal: denies musculoskeletal symptoms. ENMT: denies otolaryngeal symptoms. Respiratory: no shortness of breath. Heme/Lymph: denies easy bleeding tendency, denies easy bruising tendency. Psychiatric: no confusion, no anxiety. Genitourinary: denies dysuria, denies hematuria, denies discharge, denies urinary frequency, denies urinary hesitancy, denies nocturia, denies incontinence, denies genital sores, denies decreased libido, and denies erectile dysfunction. Physical Exam Vitals & Measurements HR: 56(Peripheral) RR: 16 BP: 140/76 HT: 68 in HT: 173 cm WT: 75 kg WT: 165 lb BMI: 25.06 General Appearance: alert, no distress, well nourished, well developed male. Flank Pain: none. Bladder: nonpalpable. Assessment/Plan 1. BPH with urinary obstruction (N40.1: Benign prostatic hyperplasia with lower urinary tract symptoms) Good stream, feels empty. UA done today is negative for blood and infection, Patient does not take any prostate medications. PSA was done 12/10/22 1.99, Previous PSA was done09/26/21 1.76. Will continue to monitor. Will do KING at next appt. 2. Family history of prostate cancer (Z80.42: Family history of malignant neoplasm of prostate) Grandfather 3. 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 Patient can get an erection but cannot maintain it. He does not feel the med is working well for him. He will get flaccid during intercourse and is unable to get erect after. He used Viagra in the past. He will need Viagra 100mg prn therapy. Discussed possibly using vacuum device or injections. Patient to think about these options f/u in 3-4 months. I have reviewed the previous health history and record for this patient with Dr. Sheth. f/u in 3-4 month Follow-up With When Contact Information SARA QIU, ISIDORO Saucedo In 3 months [facility] [address], [place] [address] [phone] Additional Instructions: f/u in 3-4 months Patient Education Benign Prostatic Hyperplasia ISuzette, personally scribed for Dr. Sheth on 12/11/2022 11:08:28. . Documentation recorded by the [email or web address] longoria, accurately reflects the services(s) I performed and decisions made by me. Authenticated by Dr. Sheth on 12/11/2022 11:09:56. Problem List/Past Medical History Ongoing BPH with urinary obstruction Family history of prostate cancer Hyperlipidemia Hypogonadism in male Nephrolithiasis Organic impotence Historical No qualifying data Procedure/Surgical History History of knee surgery, Tonsillectomy. Medications aspirin, 81 mg Multi Vitamin+ sildenafil 100 mg Tab, 100 mg= 1 tab(s), Oral, Daily, 4 refills simvastatin, 40 mg, Oral Allergies No Known Medication Allergies Social History Alcohol - Low Risk, 08/03/2019 Tobacco Former smoker, quit more than 30 days ago Tobacco Use:. Cigarettes, 12/11/2022 Family History Alzheimer's disease: Mother. Cancer of prostate: Grandparent. Leukemia: Father. Immunizations Vaccine Date Status SARS-CoV-2 (COVID-19) mRNA BNT-162b2 vax 11/01/2020 Recorded SARS-CoV-2 (COVID-19) mRNA BNT-162b2 vax 10/11/2020 Recorded Lab Results Ambulatory Point of Care Results Bilirubin Urine Dipstick: 1+ Small (12/11/22 10:11:00) Blood Urine Dipstick: Negative (12/11/22 10:11:00) Glucose Urine Dipstick: Negative (12/11/22 10:11:00) Ketones Urine Dipstick: Negative (12/11/22 10:11:00) Leukocytes Urine Dipstick: Negative (12/11/22 10:11:00) Nitrite Urine Dipstick: Negative (12/11/22 10:11:00) Protein Urine Dipstick: Negative (12/11/22 10:11:00) Specific [place] Urine Dipstick: >=1.030 (12/11/22 10:11:00) Urine Appearance Urine Dipstick: Clear (12/11/22 10:11:00) Urine Color Urine Dipstick: Yellow (12/11/22 10:11:00) Urobilinogen Urine Dipstick: Normal 0.2-1 EU/dl (12/11/22 10:11:00) pH Urine Dipstick: 5 (12/11/22 10:11:00) Diagnostic Resul (more content not included)... Normal [facility] Comment on above: Result Comment: Elec tronically Signed By: Sincere SHETH MD\.br\Date and Time Signed: 12/11/22 11:10 EDT\.br\Electronically Co-Signed By: Suzette Fernando.br\Date and Time Co-Signed: 12/11/22 11:09 EDT CNSWon 06-03-2022 CNSW Social Work (HEMTMN) ROXY DOLAN ([id number]) 1950 M Date Time Provider Department 06/03/22 MILLER GILLILAND HEMEDUIN During your visit today, we recorded the following information about you: MARCELO Ha 06/03/2022 1:56 PM Signed SOCIAL WORK FOLLOW UP NOTE: [facility] Date of service:06/03/2022 Roxy Dolan is being seen for a follow up social work visit. Today's visit includes: patient TOPICS ADDRESSED: HCPOA PLAN: F/U APPOINTMENT: Assigned SW listed in Care Team tab: Yes, No Patient completed HCPOA in the resource center. Copy sent to registration to be scanned into [employer]. MARCELO Ha Allergies As of Date: 06/03/2022 (No Known Allergies) Date Reviewed: 05/15/2010 Reviewed by: Arina Haines Ma - Reviewed Prescriptions as of 06/03/2022 - ROSUVASTATIN 20 MG TAB one tablet daily - docosahexanoic acid/epa(EPA FISH OIL CAP) Take one(1) tablet daily. - aspirin(ASPIR-LOW 81 MG TAB) Take one(1) tablet daily. - multivitamins(DAILY MULTIVITAMIN TAB) Take one(1) tablet daily. 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] 10/31/2008 Other and Unspecified Derangement of Medial Men*04/08/2010 Pain in Joint, Lower Leg [M25.569] 05/15/2010 Encounter Status:Closed by MILLER GILLILAND on 06/03/22 Normal [facility] Albumin [Mass/volume] in Ser um or PlasmaOrdered By: Niki Buenrostro on 05-15-2022 Albumin [Mass/Vol] 3.8 g/dL 3.2-5.5 [facility] Comprehensive Metabolic Pane evelin 05-15-2022 Albumin [Mass/Vol] 3.8 g/dL Normal 3.2-5.5 [facility] Comment on above: Order Comment: Reaso n for Exam OM (onychomycosis) Performed By: #### C MP ####[address] [address] [facility] Albumin/Globulin [Mass ratio] 1.6 {ratio} Normal [facility] Comment on above: Order Comment: Reaso n for Exam OM (onychomycosis) Performed By: #### C MP ####[address] [address] [facility] ALP [Catalytic activity/Vol] 52 U/L Normal 32-92 [facility] Comment on above: Order Comment: Reaso n for Exam OM (onychomycosis) Result Comment: PERF ORMED BY: [facility] [address] [id number] PATHOLOGIST [employer] MANAGER ALEXA CASTRO M.D. Performed By: #### C MP ####[address] [address] [facility] ALT [Catalytic activity/Vol] 34 U/L Normal 10-60 [facility] Comment on above: Order Comment: Reaso n for Exam OM (onychomycosis) Performed By: #### C MP ####[address] [address] [facility] Anion gap [Moles/Vol] 8.5 mmol/L Normal 6.0-15.0 [facility] Comment on above: Order Comment: Reaso n for Exam OM (onychomycosis) Performed By: #### C MP ####[address] [address] [facility] AST [Catalytic activity/Vol] 34 U/L Normal 10-42 [facility] Comment on above: Order Comment: Reaso n for Exam OM (onychomycosis) Performed By: #### C MP ####[address] [address] [facility] Bilirubin [Mass/Vol] 1.1 mg/dL Normal 0.3-1.2 [facility] Comment on above: Order Comment: Reaso n for Exam OM (onychomycosis) Performed By: #### C MP ####[address] [address] [facility] Calcium [Mass/Vol] 8.9 mg/dL Normal 8.2-10.2 [facility] Comment on above: Order Comment: Reaso n for Exam OM (onychomycosis) Performed By: #### C MP ####[place] [id number] [facility] Chloride [Moles/Vol] 105 mmol/L Normal 95-114 [facility] Comment on above: Order Comment: Reaso n for Exam OM (onychomycosis) Performed By: #### C MP ####[place] [id number] [facility] CO2 [Moles/Vol] 25.8 mmol/L Normal 22.0-30.0 [facility] Comment on above: Order Comment: Reaso n for Exam OM (onychomycosis) Performed By: #### C MP ####[address] Creatinine [Mass/Vol] 0.75 mg/dL Normal 0.64-1.27 [facility] Comment on above: Order Comment: Reaso n for Exam OM (onychomycosis) Performed By: #### C MP ####[address] Estimated GFR ( Krystin > 60 [facility] Comment on above: Order Comment: Reaso n for Exam OM (onychomycosis) Result Comment: GFR estimated reference range: According to KDOQI guidelines, <60 ml/min/1.73m2 is sufficient to diagnose a patient with chronic kidney disease. Performed By: #### C MP ####[place] [id number] [facility] Estimated GFR (Non- Am > 60 [facility] Comment on above: Order Comment: Reaso n for Exam OM (onychomycosis) Performed By: #### C MP ####[place] [id number] [facility] Globulin (S) [Mass/Vol] 2.4 g/dL Normal [facility] Comment on above: Order Comment: Reaso n for Exam OM (onychomycosis) Performed By: #### C MP ####[address] [address] [facility] Glucose [Mass/Vol] 126 mg/dL High 70-100 [facility] Comment on above: Order Comment: Reaso n for Exam OM (onychomycosis) Result Comment: [place] om Glucose Reference Range is dependent on time and content of last meal. Glucose of more than 200 mg/dL in a nonstressed, ambulatory subject supports the diagnosis of Diabetes Mellitus. ADA recommended reference range Performed By: #### C MP ####[place] [id number] [facility] Potassium [Moles/Vol] 4.3 mmol/L Normal 3.5-5.1 [facility] Comment on above: Order Comment: Reaso n for Exam OM (onychomycosis) Performed By: #### C MP ####[address] [address] [facility] Protein [Mass/Vol] 6.2 g/dL Normal 6.1-7.9 [facility] Comment on above: Order Comment: Reaso n for Exam OM (onychomycosis) Performed By: #### C MP ####[address] [address] [facility] Sodium [Moles/Vol] 135 mmol/L Low 136-146 [facility] Comment on above: Order Comment: Reaso n for Exam OM (onychomycosis) Performed By: #### C MP ####[place] [id number] [facility] Urea nitrogen [Mass/Vol] 12 mg/dL Normal 9-23 [facility] Comment on above: Order Comment: Reaso n for Exam OM (onychomycosis) Performed By: #### C MP ####[place] [id number] [facility] Creatinine and Glomerular fi ltration rate.predicted panel (S/P/Bld)Ordered By: Niki Buenrostro on 05-15-2022 Creatinine [Mass/Vol] 0.75 mg/dL 0.64-1.27 [facility] Estimated glomerular filtrat ion rate (GFR) non- AmericanOrdered By: Niki Buenrostro on 05-15-2022 GFR/1.73 sq M.predicted among non-blacks MDRD (S/P/Bld) [Vol rate/Area] > 60 mL/Min [facility] Globulin Calc (S) [Mass/Vol] Ordered By: Niki Buenrostro on 05-15-2022 Globulin (S) [Mass/Vol] 2.4 g/dL [facility] No Panel InformationOrdered By: Niki Buenrostro on 05-15-2022 Estimated GFR () > 60 mL/Min [facility] Comment on above: GFR estimated refere nce range: According to KDOQI guidelines, <60 ml/min/1.73m2 is sufficient to diagnose a patient with chronic kidney disease. Pharmacy Creatinine Clearance (Chem N/A [facility] Protein [Mass/volume] in Ser um or PlasmaOrdered By: Niki Buenrostro on 05-15-2022 Protein [Mass/Vol] 6.2 g/dL 6.1-7.9 [facility] Serum or plasma alanine hinojosa otransferase measurement without P-5'-P (enzymatic activiOrdered By: Niki Buenrostro on 05-15-2022 ALT No additional P-5'-P [Catalytic activity/Vol] 34 U/L 10-60 [facility] Serum or plasma albumin/glob ulin mass ratioOrdered By: Niki Buenrostro on 05-15-2022 Albumin/Globulin [Mass ratio] 1.6 {ratio} [facility] Serum or plasma alkaline mary jo sphatase measurement (enzymatic activity/volume)Ordered By: Niki Buenrostro on 05-15-2022 ALP [Catalytic activity/Vol] 52 U/L 32-92 [facility] Serum or plasma anion gap de terminationOrdered By: Niki Buenrostro on 05-15-2022 Anion gap [Moles/Vol] 8.5 mmol/L 6.0-15.0 [facility] Serum or plasma aspartate am inotransferase measurement (enzymatic activity/volume)Ordered By: Niki Buenrostro on 05-15-2022 AST [Catalytic activity/Vol] 34 U/L 10-42 [facility] Serum or plasma calcium arnie urement (mass/volume)Ordered By: Niki Buenrostro on 05-15-2022 Calcium [Mass/Vol] 8.9 mg/dL 8.2-10.2 [facility] Serum or plasma chloride christian surement (moles/volume)Ordered By: Niki Buenrostro on 05-15-2022 Chloride [Moles/Vol] 105 mmol/L 95-114 [facility] Serum or plasma glucose arnie urement (mass/volume)Ordered By: Niki Buenrostro on 05-15-2022 Glucose [Mass/Vol] 126 mg/dL 70-100 [facility] Comment on above: ADA recommended refe rence range Random Glucose Reference Range is dependent on time and content of last meal. Glucose of more than 200 mg/dL in a nonstressed, ambulatory subject supports the diagnosis of Diabetes Mellitus. ADA recommended refe rence rangeRandom Glucose Reference Range is dependent on time and content of last meal. Glucose of more than 200 mg/dL in a nonstressed, ambulatory subject supports the diagnosis of Diabetes Mellitus. Serum or plasma potassium me asurement (moles/volume)Ordered By: Niki Buenrostro on 05-15-2022 Potassium [Moles/Vol] 4.3 mmol/L 3.5-5.1 [facility] Serum or plasma sodium measu rement (moles/volume)Ordered By: Niki Buenrostro on 05-15-2022 Sodium [Moles/Vol] 135 mmol/L 136-146 [facility] Serum or plasma total biliru bin measurement (mass/volume)Ordered By: Niki Buenrostro on 05-15-2022 Bilirubin [Mass/Vol] 1.1 mg/dL 0.3-1.2 [facility] Serum or plasma total carbon dioxide measurement (moles/volume)Ordered By: Niki Buenrostro on 05-15-2022 CO2 [Moles/Vol] 25.8 mmol/L 22.0-30.0 [facility] Serum or plasma urea nitroge n measurement (mass/volume)Ordered By: Niki Buenrostro on 05-15-2022 Urea nitrogen [Mass/Vol] 12 mg/dL 9-23 [facility] PROF 14(COMP METB)on 022 Albumin [Mass/Vol] 4.0 g/dL Normal 3.4-5.0 [facility] Comment on above: Performed By: #### C MP #### [facility] [address] [place] [address] Dr. Licha Cortez Albumin/Globulin [Mass ratio] 1.4 {ratio} Normal [facility] Comment on above: Performed By: #### C MP #### [facility] [address] [place] [address] Dr. Licha Cortez ALP [Catalytic activity/Vol] 54 U/L Normal 46-116 [facility] Comment on above: Performed By: #### C MP #### [facility] [address] [place] [address] Dr. Licha Cortez ALT [Catalytic activity/Vol] 29 U/L Normal 16-63 [facility] Comment on above: Performed By: #### C MP #### [facility] [address] [place] [address] Dr. Licha Cortez Anion gap [Moles/Vol] 9.4 mmol/L Normal [facility] Comment on above: Performed By: #### C MP #### [facility] [address] [place] [address] Dr. Licha Cortez AST [Catalytic activity/Vol] 20 U/L Normal 15-37 [facility] Comment on above: Performed By: #### C MP #### [facility] [address] [place] [address] Dr. Licha Cortez Bilirubin [Mass/Vol] 1.2 mg/dL Critically high 0.2-1.0 [facility] Comment on above: Performed By: #### C MP #### [facility] [address] [place] [address] Dr. Licha Cortez Calcium [Mass/Vol] 8.9 mg/dL Normal 8.5-10.1 [facility] Comment on above: Performed By: #### C MP #### [facility] [address] [place] [address] Dr. Licha Cortez Chloride [Moles/Vol] 105 mmol/L Normal 98-107 [facility] Comment on above: Performed By: #### C MP #### [facility] [address] [address] [address] Licha Cortez CO2 [Moles/Vol] 28.9 mmol/L Normal 21.0-32.0 [facility] Comment on above: Performed By: #### C MP #### [facility] [address] [address] [address] Licha Cortez Creatinine [Mass/Vol] 0.85 mg/dL Normal 0.70-1.30 [facility] Comment on above: Performed By: #### C MP #### [facility] [address] [place] [address] Dr. Licha Cortez EGFR-AF DJIBOUTIAN >60 Normal >=60 [facility] Comment on above: Performed By: #### C MP #### [facility] [address] [address] [address] Licha Cortez EGFR-NON AF DJIBOUTIAN >60 Normal >=60 [facility] Comment on above: Performed By: #### C MP #### [facility] [address] [address] [address] Licha Cortez Globulin (S) [Mass/Vol] 2.8 g/dL Normal [facility] Comment on above: Performed By: #### C MP #### [facility] [address] [address] [address] Licha Cortez Glucose [Mass/Vol] 104 mg/dL Normal 74-106 [facility] Comment on above: Performed By: #### C MP #### [facility] [address] [address] [address] Licha Cortez Potassium [Moles/Vol] 4.3 mmol/L Normal 3.5-5.1 [facility] Comment on above: Performed By: #### C MP #### [facility] [address] [address] [address] Licha Cortez Protein [Mass/Vol] 6.8 g/dL Normal 6.4-8.2 [facility] Comment on above: Performed By: #### C MP #### [facility] [address] [address] [address] Licha Cortez Sodium [Moles/Vol] 139 mmol/L Normal 136-145 [facility] Comment on above: Performed By: #### C MP #### [facility] [address] [address] [address] Licha Cortez Urea nitrogen [Mass/Vol] 16.0 mg/dL Normal 7.0-18.0 [facility] Comment on above: Performed By: #### C MP #### [facility] [address] [address] [address] Licha Cortez Urea nitrogen/Creatinine [Mass ratio] 18.8 mg/mg Normal [facility] Comment on above: Performed By: #### C MP #### [facility] [address] [address] [address] Licha Cortez A1C HEMOGLOBINon 11-27-2021 HbA1c (Bld) [Mass fraction] 5.5 % [employer] Other HbA1c (Bld) [Mass fraction]o n 11-27-2021 A1C HEMOGLOBIN [facility] [employer] Other Vital Signs Date Time Vital Sign Value Performing Clinician Facility 03-04-2023 15:22-0400 Diastolic blood pressure 86 mm[Hg] DNP Niki Buenrostro Work Phone: [facility] 03-04-2023 15:22-0400 Heart rate 60 /min DNP Niki Buenrostro Work Phone: [facility] 03-04-2023 15:22-0400 Respiratory rate 18 /min DNP Niki Buenrostro Work Phone: [facility] 03-04-2023 15:22-0400 SaO2% (BldA) [Mass fraction] 95 % MITCH Buenrostro Work Phone: [facility] 03-04-2023 15:22-0400 Systolic blood pressure 171 mm[Hg] MITCH Buenrostro Work Phone: [facility] 03-04-2023 11:29-0400 Body height 172.72 cm DNP Niki Buenrostro Work Phone: [facility] 03-04-2023 11:29-0400 Body temperature 97.9 [degF] DNP Niki Buenrostro Work Phone: [facility] 03-04-2023 11:29-0400 Body weight 72.5 kg DNP Niki Buenrostro Work Phone: [facility] 02-22-2023 09:07-0400 Blood Pressure Location Sincere SHETH [facility] 02-22-2023 09:07-0400 Diastolic blood pressure 75 mm[Hg] Sincere SHETH [facility] 02-22-2023 09:07-0400 Heart rate 70 /min Sincere SHETH [facility] 02-22-2023 09:07-0400 Respiratory rate 16 /min Sincere SHETH [facility] 02-22-2023 09:07-0400 Systolic blood pressure 129 mm[Hg] Sincere SHETH [facility] 12-11-2022 10:13-0400 Blood Pressure Location Sincere SHETH [facility] 12-11-2022 10:13-0400 Diastolic blood pressure 76 mm[Hg] Sincere SHETH [facility] 12-11-2022 10:13-0400 Heart rate 56 /min Sincere SHETH [facility] 12-11-2022 10:13-0400 Respiratory rate 16 /min Sincere SHETH [facility] 12-11-2022 10:13-0400 Systolic blood pressure 140 mm[Hg] Sincere SHETH [facility] 05-13-2022 09:00-0400 Body height 172.72 cm Niki Buenrostro Other [employer] Other 05-13-2022 09:00-0400 Body mass index (BMI) [Ratio] 24.57 kg/m2 Niki Buenrostro Other [facility] Other 05-13-2022 09:00-0400 Body temperature 97.4 [degF] Niki Buenrostro Other [facility] Other 05-13-2022 09:00-0400 Body weight 73.3 kg Niki Buenrostro Other [facility] Other 05-13-2022 09:00-0400 Diastolic blood pressure 70 mm[Hg] Niki Buenrostro Other [employer] Other 05-13-2022 09:00-0400 Respiratory rate 18 /min Niki Buenrostro Other [facility] Other 05-13-2022 09:00-0400 SaO2% (BldA) [Mass fraction] 99 % Niki Buenrostro Other [facility] Other 05-13-2022 09:00-0400 Systolic blood pressure 128 mm[Hg] Niki Buenrostro Other [facility] Other 01-27-2022 09:30-0400 Body height 172.72 cm Niki Porter Other [facility] Other 01-27-2022 09:30-0400 Body mass index (BMI) [Ratio] 24.34 kg/m2 Niki Porter Other [facility] Other 01-27-2022 09:30-0400 Body temperature 97.3 [degF] Niki Porter Other [facility] Other 01-27-2022 09:30-0400 Body weight 72.62 kg Niki Porter Other [facility] Other 01-27-2022 09:30-0400 Diastolic blood pressure 70 mm[Hg] Niki Buenrostro Other [facility] Other 01-27-2022 09:30-0400 Respiratory rate 18 /min Niki Buenrostro Other [facility] Other 01-27-2022 09:30-0400 SaO2% (BldA) [Mass fraction] 99 % Niki Buenrostro Other [facility] Other 01-27-2022 09:30-0400 Systolic blood pressure 118 mm[Hg] Niki Buenrostro Other [employer] Other 11-27-2021 14:00-0400 Body height 172.72 cm Niki Buenrostro Other [employer] Other 11-27-2021 14:00-0400 Body mass index (BMI) [Ratio] 24.48 kg/m2 Niki Porter Other [facility] Other 11-27-2021 14:00-0400 Body weight 73.03 kg Niki Porter Other [facility] Other 11-27-2021 14:00-0400 Diastolic blood pressure 82 mm[Hg] Niki Buenrostro Other [employer] Other 11-27-2021 14:00-0400 Respiratory rate 16 /min Niki Buenrostro Other [employer] Other 11-27-2021 14:00-0400 SaO2% (BldA) [Mass fraction] 99 % Niki Buenrostro Other [employer] Other 11-27-2021 14:00-0400 Systolic blood pressure 122 mm[Hg] Niki Porter Other [employer] Other Encounters Encounter Date Encounter Type Care Provider Facility Start: 05-12-2024 ambulatory Sincere Ma ty:[facility]IT[facility] [place] Start: 06-04-2023 End: 06-04-2023 ambulatory Niki Buenrostro Other [employer] Other Start: 06-04-2023 Telephone encounter Niki [facility] [place] Start: 05-17-2023 ambulatory Sincere Schaferi ty:[facility] [place] Start: 05-12-2023 End: 05-13-2023 ambulatory Sincere SHETH Facility:Y[facility]IT[facility] [place] Start: 05-12-2023 End: 05-12-2023 Patient encounter procedure Sincere SHETH [facility] [place] Start: 04-28-2023 End: 04-29-2023 ambulatory Sincere SHETH Facility:[facility] [place] [place] Start: 04-28-2023 End: 04-29-2023 ambulatory Sincere Luis Angel SHETH Facility:[facility] [place] Start: 04-28-2023 End: 04-28-2023 Lab Drop off Sincere SHETH [facility] Start: 03-25-2023 End: 03-25-2023 ambulatory Niki Buenrostro Facility:[facility] Start: 03-25-2023 End: 03-25-2023 ambulatory DNP Niki Porter Work Phone: [facility] Work Phone: Start: 03-25-2023 End: 03-25-2023 Patient encounter procedure DNP Niki Porter Work Phone: [facility] [place] Work Phone: Start: 03-04-2023 End: 03-04-2023 Emergency department patient visit Niki Buenrostro Facility:[facility] Start: 03-04-2023 End: 03-04-2023 Emergency department patient visit DNP Niki Porter Work Phone: [facility] Work Phone: Start: 02-22-2023 End: 02-23-2023 ambulatory Sincere SHETH Facility:[facility] [place] Start: 02-22-2023 End: 02-22-2023 Patient encounter procedure Sincere R SHETH [facility] [place] Start: 01-05-2023 End: 01-05-2023 ambulatory Niki Buenrostro Other [employer] Other Start: 01-05-2023 Telephone encounter Niki Buenrostro [facility] Start: 01-01-2023 End: 05-06-2023 ambulatory NIKI BUENROSTRO Facility: Start: 12-11-2022 End: 12-12-2022 ambulatory Sincere SHETH Facility: [place] Start: 12-11-2022 End: 12-11-2022 Patient encounter procedure Sincere SHETH [facility] [place] Start: 12-10-2022 End: 12-11-[address] SINCERE SHETH . Facility: Start: 07-06-2022 End: 07-06-2022 ambulatory Niki Buenrostro Facility:[facility] Start: 07-06-2022 End: 07-06-2022 ambulatory DNP Niki Porter Work Phone: [facility] Work Phone: Start: 07-06-2022 End: 07-06-2022 Discharged Recurring DNP Niki Buenrostro Work Phone: [facility] [place] Start: 06-03-2022 Social Work Miller HURLEY W Work Phone: Hematology/Oncology Start: 05-15-2022 End: 05-15-2022 ambulatory Niki Buenrostro Facility:[facility] Start: 05-15-2022 Registered Recurring DNP Jenifer jerrell Buenrostro Work Phone: [facility] [place] Start: 05-15-2022 End: 05-15-2022 Patient encounter procedure DNP Niki Porter Work Phone: [facility]-Lab [place] Start: 05-13-2022 End: 05-13-2022 ambulatory Niki Buenrostro Other [employer] Other Start: 05-13-2022 Office outpatient vi sit 25 minutes Niki Buenrostro [facility] [place] Start: 03-10-2022 End: 03-11-2022 ambulatory NIKI BUENROSTRO Facility: Start: 03-03-2022 End: 03-03-2022 ambulatory Niki Lehmanlizabeth Other [employer] Other Start: 03-03-2022 Telephone encounter Niki Lehmanlizabeth [facility] Start: 02-08-2022 End: 02-08-2022 ambulatory Niki Porter Other [facility] Other Start: 02-08-2022 Telephone encounter Niki Lehmanlizabeth [facility] Start: 01-27-2022 End: 01-27-2022 ambulatory Niki Porter Other [facility] Other Start: 01-27-2022 Office outpatient vi sit 25 minutes Niki Buenrostro [facility] Start: 12-31-2021 End: 12-31-2021 ambulatory Niki Porter Other [facility] Other Start: 12-31-2021 Telephone encounter Niki Lehmanlizabeth Angel[facility] Start: 11-27-2021 End: 11-27-2021 ambulatory Niki Lehmanlizabeth Other [facility] Other Start: 11-27-2021 Patient encounter procedure Niki Buenrostro [facility] Start: 11-27-2021 Telephone encounter Niki Porter [facility] Procedures Date Procedure Procedure Detail Performing Clinician Start: 04-28-2023 Transrectal needle b iopsy of prostate Sincere SARA Start: 03-25-2023 X-ray of skull DNP May Buenrostro Work Phone: Start: 03-25-2023 MR prostate wo/w con DN P Niki Buenrostro Work Phone: Start: 03-04-2023 Computed tomography of abdomen and pelvis with contrast MITCH Buenrostro Work Phone: Start: 12-10-2022 PSA screening NIKI BUENROSTRO Comment on above: Performed By: #### P SAD #### [facility] [address] [address] [address] Licha Cortez History of operative procedure on knee Sincere SHETH Tonsillectomy Sincere SHETH Plan of Treatment Date Care Activity Detail Author Start: 04-30-2022 Influenza vaccination INFLUENZA (#1) [facility] Start: 08-30-2021 ADVANCE DIRECTIVE DISCUSSION ADVANCE DIRECTIVE DISCUSSION [facility] Start: 08-30-2021 DEPRESSION ASSESSMENT DEPRESSION ASSESSMENT [facility] Start: 2017 PNEUMOCOCCAL: 65+ (1 - PCV) PNEUMOCOCCAL: 65+ (1 - PCV) [facility] Start: 05-02-2013 DIABETES SCREEN DIABETES SCREEN [facility] Start: 2002 SHINGRIX VACCINE (1 of 2) SHINGRIX VACCINE (1 of 2) [facility] Start: 1997 COLOGUARD (FIT-DNA) COLOGUARD (FIT-DNA) [facility] Start: 1997 Colonoscopy COLONOSCOPY [facility] Start: 1997 COLORECTAL CANCER SCREENING COLORECTAL CANCER SCREENING [facility] Start: [address] COLONOGRAPHY [facility] Start: 1997 FECAL OCCULT BLOOD FECAL OCCULT BLOOD [facility] Start: 1997 SIGMOIDOSCOPY SIGMOIDOSCOPY [facility] Start: 1987 LIPID SCREEN LIPID SCREEN [facility] Start: 1971 Urine microalbumin profile DTAP,TDAP,TD (1 - Tdap) [facility] Start: 1970 HEPATITIS C SCREENING HEPATITIS C SCREENING [facility] Start: 1952 COVID-19 VACCINE (#1) COVID-19 VACCINE (#1) [facility] Patient Education Kidney Stones (DC) [facility] Work Phone: Patient referral [facility] Work Phone: Immunizations Immunization Date Immunization Notes Care Provider Fa cili 07-06-2022 influenza, seasonal, injectable Niki Buenrostro Other [employer] Other 07-06-2022 influenza virus vaccine, unspecified formulation Sincere SHETH [facility] 05-13-2022 SARS-CoV-2 (COVID-19 ) [id number] Sincere SHETH [facility] Comment on above: Result Comment: 2022: [id number] 07-18-2021 influenza, seasonal, injectable Niki Buenrostro Other [facility] Other 07-18-2021 COVID-19 Vaccine Pfi zer - Documentation Purposes Only Niki Buenrostro Other [facility] Comment on above: Result Comment: 2022: [id number] 07-18-2021 influenza virus vaccine, unspecified formulation Sincere SHETH [facility] 11-01-2020 COVID-19 Vaccine Pfi zer - Documentation Purposes Only Niki Buenrostro Other [facility] 10-11-2020 COVID-19 Vaccine Pfi zer - Documentation Purposes Only Niki Buenrostro Other [facility] 06-24-2020 influenza virus vaccine, unspecified formulation Sincere SHETH [facility] 06-24-2020 pneumococcal polysaccharide vaccine, 23 valent Niki Buenrostro Other [facility] 06-24-2020 influenza, seasonal, injectable Niki Buenrostro Other [facility] Other 07-12-2019 influenza virus vaccine, unspecified formulation Sincere SHETH [facility] 07-12-2019 pneumococcal conjuga te vaccine, 13 valent Niki Buenrostro Other [facility] 07-12-2019 influenza, seasonal, injectable Niki Buenrostro Other [facility] Other 08-04-2018 influenza virus vaccine, unspecified formulation Sincere SHETH [facility] 05-24-2017 tetanus toxoid, redu star diphtheria toxoid, and acellular pertussis vaccine, adsorbed Niki Buenrostro Other [facility] 06-26-2014 influenza, injectabl e, quadrivalent, preservative free Niki Buenrostro Other [facility] Other 09-11-2013 influenza virus vaccine, split virus (incl. purified surface antigen) Niki Buenrostro Other [facility] Other Payers Date Payer Category Payer Self-pay [id number] 2008 Private Health Insurance [facility] [address] [id number] 2008-Present [phone] [id number] [place], [place] Indemnity [id number] 1959 Medicare [id number] 1959 Medicare [id number] 1959 Unknown [id number] 1952 Unknown [id number] 2.16.840.1.542719.3.579.2. 593 1952 Unknown [id number] 2.16.840.1.483910.3.579.2. 593 1952 Unknown [id number] 2.16.840.1.348337.3.579.2. 593 1952 Unknown [id number] 2.16.840.1.794810.3.579.2. 727 1952 Unknown [id number] 2.16.840.1.905261.3.579.2. 727 1952 Unknown [id number] 2.16.840.1.676702.3.579.2. 727 1952 Unknown [id number] 2.16.840.1.719641.3.579.2. 727 1952 Unknown [id number] 2..840.1.857620.3.579.2. 727 1952 Unknown [id number] 2.16.840.1.053144.3.579.2. 727 1952 Unknown [id number] 2.16.840.1.484212.3.579.2. 727 [facility] [id number] Unknown [facility] [id number] Unknown [id number] 2.16.840.1.012910.3.579.2. 531 Unknown [id number] 2.16.840.1.809560.3.579.2. 531 Unknown [id number] 2.16.840.1.271884.3.579.2. 531 Unknown [id number] 2.16.840.1.874662.3.579.2. 531 Social History Date Type Detail Facility Unknown if ever smoked [employer] Other Sex Assigned At [facility] Start: 1950 Sex Assigned At Male F [facility] Tobacco smoking stat NHIS Never smoked tobacco [facility] Work Phone: Start: 05-12-2010 Alcohol intake Current drinke r of alcohol (finding) [facility] Start: 1950 Sex Assigned At Not on file C [facility] Start: 12-11-2022 End: 03-04-2023 Tobacco smoking status Ex-smoker (finding) [facility] Functional Status Date Assessment Result Facility 05-12-2023 Functional Status N/A [facility] 02-22-2023 Functional Status N/A [facility] 12-11-2022 Functional Status N/A [facility] Clinical Notes 11-28-2012 to 05-12-2023 MARCELO Ha - 06/03/2022 1:54 PM EDT Note Date & Type Note Facility 05-12-2023 Hospital Discharge instructions Patient Education 05/12/2023 15:21:13 Benign Prostatic Hyperplasia Benign Prostatic Hyperplasia Benign prostatic hyperplasia (BPH) is an enlarged prostate gland that is caused by the normal aging process. The prostate may get bigger as a man gets older. The condition is not caused by cancer. The prostate is a walnut-sized gland that is involved in the production of semen. It is located in front of the rectum and below the bladder. The bladder stores urine. The urethra carries stored urine out of the body. An enlarged prostate can press on the urethra. This can make it harder to pass urine. The buildup of urine in the bladder can cause infection. Back pressure and infection may progress to bladder damage and kidney (renal) failure. What are the causes? This condition is part of the normal aging process. However, not all men develop problems from this condition. If the prostate enlarges away from the urethra, urine flow will not be blocked. If it enlarges toward the urethra and compresses it, there will be problems passing urine. What increases the risk? This condition is more likely to develop in men older than 50 years. What are the signs or symptoms? Symptoms of this condition include: Getting up often during the night to urinate. Needing to urinate frequently during the day. Difficulty starting urine flow. Decrease in size and strength of your urine stream. Leaking (dribbling) after urinating. Inability to pass urine. This needs immediate treatment. Inability to completely empty your bladder. Pain when you pass urine. This is more common if there is also an infection. Urinary tract infection (UTI). How is this diagnosed? This condition is diagnosed based on your medical history, a physical exam, and your symptoms. Tests will also be done, such as: A post-void bladder scan. This measures any amount of urine that may remain in your bladder after you finish urinating. A digital rectal exam. In a rectal exam, your health care provider checks your prostate by putting a lubricated, gloved finger into your rectum to feel the back of your prostate gland. This exam detects the size of your gland and any abnormal lumps or growths. An exam of your urine (urinalysis). A prostate specific antigen (PSA) screening. This is a blood test used to screen for prostate cancer. An ultrasound. This test uses sound waves to electronically produce a picture of your prostate gland. Your health care provider may refer you to a specialist in kidney and prostate diseases (urologist). How is this treated? Once symptoms begin, your health care provider will monitor your condition (active surveillance or watchful waiting). Treatment for this condition will depend on the severity of your condition. Treatment may include: Observation and yearly exams. This may be the only treatment needed if your condition and symptoms are mild. Medicines to relieve your symptoms, including: ?Medicines to shrink the prostate. ?Medicines to relax the muscle of the prostate. Surgery in severe cases. Surgery may include: ?Prostatectomy. In this procedure, the prostate tissue is removed completely through an open incision or with a laparoscope or robotics. ?Transurethral resection of the prostate (TURP). In this procedure, a tool is inserted through the opening at the tip of the penis (urethra). It is used to cut away tissue of the inner core of the prostate. The pieces are removed through the same opening of the penis. This removes the blockage. ?Transurethral incision (TUIP). In this procedure, small cuts are made in the prostate. This lessens the prostate's pressure on the urethra. ?Transurethral microwave thermotherapy (TUMT). This procedure uses microwaves to create heat. The heat destroys and removes a small amount of prostate tissue. ?Transurethral needle ablation (TUNA). This procedure uses radio frequencies to destroy and remove a small amount of prostate tissue. ?Interstitial laser coagulation (ILC). This procedure uses a laser to destroy and remove a small amount of prostate tissue. ?Transurethral electrovaporization (TUVP). This procedure uses electrodes to destroy and remove a small amount of prostate tissue. ?Prostatic urethral lift. This procedure inserts an implant to push the lobes of the prostate away from the urethra. Follow these instructions at home: Take [id number] and prescription medicines only as told by your health care provider. Monitor your symptoms for any changes. Contact your health care provider with any changes. Avoid drinking large amounts of liquid before going to bed or out in public. Avoid or reduce how much caffeine or alcohol you drink. Give yourself time when you urinate. Keep all follow-up visits. This is important. Contact a health care provider if: You have unexplained back pain. Your symptoms do not get better with treatment. You develop side effects from the medicine you are taking. Your urine becomes very dark or has a bad smell. Your lower abdomen becomes distended and you have trouble passing urine. Get help right away if: You have a fever or chills. You suddenly cannot urinate. You feel light-headed or very dizzy, or you faint. There are large amounts of blood or clots in your urine. Your urinary problems become hard to manage. You develop moderate to severe low back or flank pain. The flank is the side of your body between the ribs and the hip. These symptoms may be an emergency. Get help right away. Call 911. Do not wait to see if the symptoms will go away. Do not drive yourself to the hospital. Summary Benign prostatic hyperplasia (BPH) is an enlarged prostate that is caused by the normal aging process. It is not caused by cancer. An enlarged prostate can press on the urethra. This can make it hard to pass urine. This condition is more likely to develop in men older than 50 years. Get help right away if you suddenly cannot urinate. This information is not intended to replace advice given to you by your health care provider. Make sure you discuss any questions you have with your health care provider. Document Revised: 03/04/2022 Document Reviewed: 03/04/2022 Elsevier Patient Education 2022 [employer]. Follow Up Care 04/29/2023 14:04:06 With:SARA QIU, Sincere Plasencia, CODIL Address: [facility] [address], [place] [address]- When: Unknown [facility] 02-22-2023 Evaluation + Plan note Diagnostic Tests PendingPSA Free & Total 02/22/23 [facility] [facility] 02-22-2023 Hospital Discharge instructions Patient Education 02/22/2023 10:07:19 Transrectal Ultrasound-Guided Prostate Biopsy, Care After Transrectal Ultrasound-Guided Prostate Biopsy, Care After The following information offers guidance on how to care for yourself after your procedure. Your health care provider may also give you more specific instructions. If you have problems or questions, contact your health care provider. What can I expect after the procedure? After the procedure, it is common to have: Pain and discomfort near your rectum, especially while sitting. [place]-colored urine due to small amounts of blood in your urine. A burning feeling while urinating. Blood in your stool (feces) or bleeding from your rectum. Blood in your semen. Follow these instructions at home: Medicines Take igxl-kxe-bnmctvd and prescription medicines only as told by your health care provider. If you were given a sedative during your procedure, it can affect you for several hours. Do not drive or operate machinery until your health care provider says that it is safe. If you were prescribed an antibiotic medicine, take it as told by your health care provider. Do not stop using the antibiotic even if you start to feel better. Activity Return to your normal activities as told by your health care provider. Ask your health care provider what activities are safe for you. Ask your health care provider when it is okay for you to resume sexual activity. You may have to avoid lifting. Ask your health care provider how much you can safely lift. General instructions Drink enough fluid to keep your urine pale yellow. Watch your urine, stool, and semen for new or increased bleeding. Keep all follow-up visits. This is important. Contact a health care provider if: You have any of the following: ?Blood clots in your urine or stool. ?Blood in your urine more than 2 weeks after the procedure. ?Blood in your semen more than 2 months after the procedure. ?New or increased bleeding in your urine, stool, or semen. ?Severe pain in your abdomen. Your urine smells bad or unusual. You have trouble urinating. Your lower abdomen feels firm. You have problems getting an erection. You have nausea or you vomit. Get help right away if: You have a fever or chills. This could be a sign of infection. You have bright red urine. You have severe pain that does not get better with medicine. You cannot urinate. Summary After this procedure, it is common to have pain and discomfort around your rectum, especially while sitting. You may have blood in your urine and stool after the procedure. It is common to have blood in your semen after this procedure. Get help right away if you have a fever or chills. This could be a sign of infection. This information is not intended to replace advice given to you by your health care provider. Make sure you discuss any questions you have with your health care provider. Document Revised: 02/09/2022 Document Reviewed: 02/09/2022 [email or web address] Patient Education 2022 [employer]uosity. 02/22/2023 10:07:18 Transrectal Ultrasound-Guided Prostate Biopsy Transrectal Ultrasound-Guided Prostate Biopsy A transrectal ultrasound-guided prostate biopsy is a procedure to remove samples of prostate tissue for testing. The prostate is a walnut-sized gland that is located below the bladder and in front of the rectum. During this procedure, a small device (probe) is lubricated and put inside the rectum. The probe sends out sound waves that make a picture of the prostate and surrounding tissues (transrectal ultrasound). The images are used to help guide the process of removing the samples. The samples are taken to a lab to be checked for prostate cancer. This procedure is usually done to evaluate the prostate gland of men who have raised (elevated) levels of prostate-specific antigen (PSA), which can be a sign of prostate cancer or prostate enlargement related to aging (benign prostatic hyperplasia, or BPH). Tell a health care provider about: Any allergies you have. All medicines you are taking, including vitamins, herbs, eye drops, creams, and faau-uey-qmiwbex medicines. Any problems you or family members have had with anesthetic medicines. Any bleeding problems you have. Any surgeries you have had. Any medical conditions you have. Any prostate infections you have had. What are the risks? Generally, this is a safe procedure. However, problems may occur, including: Prostate infection. Bleeding from the rectum. Blood in the urine. Allergic reactions to medicines. Damage to surrounding structures such as blood vessels, organs, or muscles. Difficulty passing urine. Nerve damage. This is usually temporary. What happens before the procedure? Medicines Ask your health care provider about: Changing or stopping your regular medicines. This is especially important if you are taking diabetes medicines or blood thinners. Taking medicines such as aspirin and ibuprofen. These medicines can thin your blood. Do not take these medicines unless your health care provider tells you to take them. Taking bwod-qkz-smxfykl medicines, vitamins, herbs, and supplements. General instructions Follow instructions from your health care provider about eating and drinking. In most instances, you will not need to stop eating and drinking completely before the procedure. You will be given an enema. During an enema, a liquid is injected into your rectum to clear out waste. You may have a blood or urine sample taken. Ask your health care provider what steps will be taken to help prevent infection. These steps may include: ?Washing skin with a germ-killing soap. ?Taking antibiotic medicine. If you will be going home right after the procedure, plan to have a responsible adult: ?Take you home from the hospital or clinic. You will not be allowed to drive. ?Care for you for the time you are told. What happens during the procedure? An IV will be inserted into one of your veins. You will be given one or both of the following: ?A medicine to help you relax (sedative). ?A medicine to numb the area (local anesthetic). You will be placed on your left side, and your knees will be bent toward your chest. A probe with lubricated gel will be placed into your rectum, and images will be taken of your prostate and surrounding structures. Numbing medicine will be injected into your prostate. A biopsy needle will be inserted through your rectum or perineum and guided to your prostate using the ultrasound images. Prostate tissue samples will be removed, and the needle and probe will then be removed. The biopsy samples will be sent to a lab to be tested. The procedure may vary among health care providers and hospitals. What happens after the procedure? Your blood pressure, heart rate, breathing rate, and blood oxygen level will be monitored until you leave the hospital or clinic. You may have some discomfort in the rectal area. You will be given pain medicine as needed. If you were given a sedative during the procedure, it can affect you for several hours. Do not drive or operate machinery until your health care provider says that it is safe. It is up to you to get the results of your procedure. Ask your health care provider, or the department that is doing the procedure, when your results will be ready. Keep all follow-up visits. This is important. Summary A transrectal ultrasound-guided biopsy removes samples of tissue from your prostate using ultrasound-guided sound waves to help guide the process. This procedure is usually done to evaluate the prostate gland of men who have raised (elevated) levels of prostate-specific antigen (PSA), which can be a sign of prostate cancer or prostate enlargement related to aging. After your procedure, you may feel some discomfort in the rectal area. Plan to have a responsible adult take you home from the hospital or clinic, and follow up with your health care provider for your results. This information is not intended to replace advice given to you by your health care provider. Make sure you discuss any questions you have with your health care provider. Document Revised: 02/09/2022 Document Reviewed: 02/09/2022 [email or web address] Patient Education 2022 [employer]uosity. Follow Up Care 12/11/2022 11:09:24 With:SARA QIU, Sincere Plasencia, URL Address: [facility] [address] [place] [address]- When: Unknown [facility] 12-11-2022 Hospital Discharge instructions Patient Education 12/11/2022 07:54:33 Benign Prostatic Hyperplasia Benign Prostatic Hyperplasia Benign prostatic hyperplasia (BPH) is an enlarged prostate gland that is caused by the normal aging process and not by cancer. The prostate is a walnut-sized gland that is involved in the production of semen. It is located in front of the rectum and below the bladder. The bladder stores urine and the urethra is the tube that carries the urine out of the body. The prostate may get bigger as a man gets older. An enlarged prostate can press on the urethra. This can make it harder to pass urine. The build-up of urine in the bladder can cause infection. Back pressure and infection may progress to bladder damage and kidney (renal) failure. What are the causes? This condition is part of a normal aging process. However, not all men develop problems from this condition. If the prostate enlarges away from the urethra, urine flow will not be blocked. If it enlarges toward the urethra and compresses it, there will be problems passing urine. What increases the risk? This condition is more likely to develop in men over the age of 50 years. What are the signs or symptoms? Symptoms of this condition include: Getting up often during the night to urinate. Needing to urinate frequently during the day. Difficulty starting urine flow. Decrease in size and strength of your urine stream. Leaking (dribbling) after urinating. Inability to pass urine. This needs immediate treatment. Inability to completely empty your bladder. Pain when you pass urine. This is more common if there is also an infection. Urinary tract infection (UTI). How is this diagnosed? This condition is diagnosed based on your medical history, a physical exam, and your symptoms. Tests will also be done, such as: A post-void bladder scan. This measures any amount of urine that may remain in your bladder after you finish urinating. A digital rectal exam. In a rectal exam, your health care provider checks your prostate by putting a lubricated, gloved finger into your rectum to feel the back of your prostate gland. This exam detects the size of your gland and any abnormal lumps or growths. An exam of your urine (urinalysis). A prostate specific antigen (PSA) screening. This is a blood test used to screen for prostate cancer. An ultrasound. This test uses sound waves to electronically produce a picture of your prostate gland. Your health care provider may refer you to a specialist in kidney and prostate diseases (urologist). How is this treated? Once symptoms begin, your health care provider will monitor your condition (active surveillance or watchful waiting). Treatment for this condition will depend on the severity of your condition. Treatment may include: Observation and yearly exams. This may be the only treatment needed if your condition and symptoms are mild. Medicines to relieve your symptoms, including: ?Medicines to shrink the prostate. ?Medicines to relax the muscle of the prostate. Surgery in severe cases. Surgery may include: ?Prostatectomy. In this procedure, the prostate tissue is removed completely through an open incision or with a laparoscope or robotics. ?Transurethral resection of the prostate (TURP). In this procedure, a tool is inserted through the opening at the tip of the penis (urethra). It is used to cut away tissue of the inner core of the prostate. The pieces are removed through the same opening of the penis. This removes the blockage. ?Transurethral incision (TUIP). In this procedure, small cuts are made in the prostate. This lessens the prostate's pressure on the urethra. ?Transurethral microwave thermotherapy (TUMT). This procedure uses microwaves to create heat. The heat destroys and removes a small amount of prostate tissue. ?Transurethral needle ablation (TUNA). This procedure uses radio frequencies to destroy and remove a small amount of prostate tissue. ?Interstitial laser coagulation (ILC). This procedure uses a laser to destroy and remove a small amount of prostate tissue. ?Transurethral electrovaporization (TUVP). This procedure uses electrodes to destroy and remove a small amount of prostate tissue. ?Prostatic urethral lift. This procedure inserts an implant to push the lobes of the prostate away from the urethra. Follow these instructions at home: Take tcwz-mer-qdsyemc and prescription medicines only as told by your health care provider. Monitor your symptoms for any changes. Contact your health care provider with any changes. Avoid drinking large amounts of liquid before going to bed or out in public. Avoid or reduce how much caffeine or alcohol you drink. Give yourself time when you urinate. Keep all follow-up visits as told by your health care provider. This is important. Contact a health care provider if: You have unexplained back pain. Your symptoms do not get better with treatment. You develop side effects from the medicine you are taking. Your urine becomes very dark or has a bad smell. Your lower abdomen becomes distended and you have trouble passing your urine. Get help right away if: You have a fever or chills. You suddenly cannot urinate. You feel lightheaded, or very dizzy, or you faint. There are large amounts of blood or clots in the urine. Your urinary problems become hard to manage. You develop moderate to severe low back or flank pain. The flank is the side of your body between the ribs and the hip. These symptoms may represent a serious problem that is an emergency. Do not wait to see if the symptoms will go away. Get medical help right away. Call your local emergency services (911 in the [place] Do not drive yourself to the hospital. Summary Benign prostatic hyperplasia (BPH) is an enlarged prostate that is caused by the normal aging process and not by cancer. An enlarged prostate can press on the urethra. This can make it hard to pass urine. This condition is part of a normal aging process and is more likely to develop in men over the age of 50 years. Get help right away if you suddenly cannot urinate. This information is not intended to replace advice given to you by your health care provider. Make sure you discuss any questions you have with your health care provider. Document Released: 08/16/2006 Document Revised: 07/11/2019 Document Reviewed: 09/20/2017 [email or web address] Patient Education [place] [employer] [place]. Follow Up Care 09/29/2021 13:16:05 With:SARA QIU, Sincere Plasencia, URL Address: [facility] [address] [place] [address] [phone] When:Within 3 Month(s) Comments:f/u in 3-4 months [facility] 06-03-2022 Note HNO ID: [id number] Author: MARCELO Ha Service: ? 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 Today's visit includes: patient TOPICS ADDRESSED: HCPOA PLAN: F/U APPOINTMENT: Assigned SW listed in Care Team tab: Yes, No Patient completed HCPOA in the resource center. Copy sent to registration to be scanned into [employer]. MARCELO Ha [facility] 06-03-2022 History of Present illness Narrative SOCIAL WORK FOLLOW UP NOTE: [facility] Date of service:06/03/2022 Roxy Dolan is being seen for a follow up social work visit. Today's visit includes: patient TOPICS ADDRESSED: HCPOA PLAN: F/U APPOINTMENT: Assigned SW listed in Care Team tab: Yes, No Patient completed HCPOA in the resource center. Copy sent to registration to be scanned into [employer]. MARCELO Ha documented in this encounter [facility] 05-13-2022 Evaluation note Encounter Date Diagnosis Assessment Notes Apr, Strain of lumbar region, initial encounter (ICD-10 - S39.012A) No warning s/s present. Pain comes and goes with certain movements. No medication needed or xray needed at this time. Will treat with PT as he would very much benefit from this. Referral to PT sent today. He will contact the office should this not be effective or pain continue without improvement. Warning s/s reviewed with patient today. Patient to go immediately to the ER should pt experience any of these. Patient verbalizes understanding and agrees to treatment plan. [facility] Other 07-05-2022 Evaluation note* Encounter Date Diagnosis Assessment Notes Treatment Notes Treatment Clinical Notes Feb, OM (onychomycosis) (ICD-10 - B35.1) [facility] Other 06-12-2022 Evaluation note* Encounter Date Diagnosis Assessment Notes Treatment Notes Treatment Clinical Notes Jan, OM (onychomycosis) (ICD-10 - B35.1) [facility] Other 05-31-2022 Evaluation note* Encounter Date Diagnosis Assessment Notes Treatment Notes Treatment Clinical Notes December, OM (onychomycosis) (ICD-10 - B35.1) Nail fungus to left great toe is almost completely grown out and appears to be resolving. Will have him finish full 12 week course (he has completed 8 weeks so far). Will have him complete lab work. This has already been ordered. Medication profile and possible SE reviewed with patient. Notify office should symptoms persist and not continue to resolve. [facility] Other 05-04-2022 Evaluation note* Encounter Date Diagnosis Assessment Notes Treatment Notes Treatment Clinical Notes December, Hypocalcemia (ICD-10 - E83.51) [facility] Other 03-31-2022 Evaluation note* Encounter Date Diagnosis Assessment Notes Treatment Notes Treatment Clinical Notes Oct, Medicare annual wellness visit, initial (ICD-10 - Z00.00) Personalized health advice was given to the beneficiary including a written plan for screenings discussed and provided. Advanced care planning reviewed and/or information given as requested. The above visit was performed by Aparna BALCC, under direct supervision of Niki Buenrostro, DNP,WATCHSTANDER,TRAFFIC INCIDENT MANAGEMENT MANAGER. Document reviewed and amended by provider signed below. Oct, Elevated fasting blood sugar (ICD-10 - R73.01) Recent lab work reviewed with patient. Did have an elevated fasting blood sugar. In office hgba1c today is normal. This is reviewed with him today. Oct, Hyperlipidemia (ICD-10 - E78.5) Routine lab work reviewed with patient, currently well controlled. Currently taking Simvastatin 40 mg daily. Will continue current treatment plan. Take medication as prescribed, keep follow up appointments, get any testing that's been ordered done in a timely fashion. Do not smoke. Call if any questions or problems. For Cholesterol: Patient is advised to work on healthy diet choices and appropriate servings, weight control, regular exercise as directed, and reduce fat intake. Oct, ED (erectile dysfunction) (ICD-10 - N52.9) Stable at this time with Yessi OBANDO. Will continue current treatment plan at this time. Oct, History of kidney stones (ICD-10 - Z87.442) Stable at this time. He is to continue to follow with urology. Specialty notes reviewed as received. Oct, OM (onychomycosis) (ICD-10 - B35.1) Does appear to have toenail fungus to his left great toe. He would like to trial oral medication to help with this. This is ordered today. Medication profile and possible SE reviewed with patient. Complete lab work at 4 week intervals. Follow up in 8 weeks to see how he is doing. [facility] Other 04-01-2013 History general Narrative - Reported* Type Description Date Medical History Hypercholesterolemia Medical History Hydronephrosis & Kidney Stone - Dr. Sheth Medical History right ureterolithiasis - Dr. Naeem witt (November 2012) Surgical History Meniscus Tears repai red Bilateral Knees - Dr. Arellano [facility] & ? 1979 & 2009 Surgical History Cystoscope - Dr. Sheth 12/22/12 Surgical History Surgery (L) ear - cyst 2008 Hospitalization History See Above Surgical Hx [facility] [employer] Other Evaluation + Plan note Future Appointments Appointment Date:02/22/2023 09:30:00 AM Scheduled Provider:Sincere SHETH MD Location:[facility] Appointment Type:URO Office Visit Diagnostic Tests Pending * PSA Total 12/11/22 [facility] evaluation + Plan note Future Appointments Appointment Date:05/14/2023 10:15:00 AM Scheduled Provider:Sincere SHETH MD Location:[facility] Appointment Type:URO Office Visit Diagnostic Tests Pending * Prostate [facility] Future App[facility]ments Appointment Date:05/12/2024 09:45:00 AM Scheduled Provider:Sincere SHETH MD Location:[facility] Appointment Type:URO Office Visit Diagnostic Tests Pending * PSA Total 05/12/23 [facility] Evaluation noteNo InformationNortEnd[facility] [employer] Other evalumursv noteNo assessment information available [facility] Work Phone: Hospital course Narrative No data available for this section [facility] Hospital Discharge instructions Additional Instructions Take Naprosyn as prescribed for mild to moderate pain. Take oxycodone as prescribed for severe pain. Take Flomax daily. Increase your intake of fluids and rest. Follow-up with urologist as well for ongoing management.[facility] Work Phone: Hospital Discharge instructions No data available for this section [facility] No data available for this section [facility] [place] Chief Complaint and Reason for Visit Chief Complaint MEDICARE/low back pa in Chief Complaint B35.1 MEDICARE/low back pain Chief Complaint abd pain Chief Complaint abd pain Z80.42 N40.2 Advance Directives Advance Directive Response Recorded Date/ Time Advance Directives No January 10 9:22am Documents on File Type Date Recorded 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 Assistant Expl anation Advance Directive(s) 06/03/2022 11:40 AM Advance Directive Response Recorded Date/ Time Advance Directives No January 10 8 8:22am Summary Purpose Family History No Family History Records FoundNo Family History Records FoundNo Family History Records FoundNo Family History Records Found Additional Source Comments REASON FOR VISIT (unrecogniz ed section and content) repeat labs1 year Follow up, review lab work., hgba1c due to elevated fasting glucoselab results8 WK FOLLOW UPrepeat labscmp repeatpain, backlab resultsrefill Care Teams (unrecognized sec tion and content) Team Status: Active Member Role Status Dates Niki Buenrostro DNP Primary Care Provider Active Team Status: Inactive Member Role Status Dates Niki Buenrostro DNP Primary Care Provider Active Artie Mejia , Emergency Provider Active Team Status: Active Member Role Status Dates Niki Buenrostro DNP Primary Care Provider, Attending Provider Active Team Status: Inactive Member Role Status Dates Niki Buenrostro DNP Primary Care Provider, Attending Provider Active Through Operator Relationship Specialty Start Date End Date Hilario Sarmiento PCP - General 07/26/07 Team Status: Inactive Member Role Status Dates Niki Buenrostro DNP Primary Care Provider Active Sincere Sheth MD Attending Provider Active Goals (unrecognized section and content) Goals may be documented in a n alternate section Source Comments (unrecognize d section and content) In the event this informatio n is protected by the Federal Confidentiality of Alcohol and Drug Abuse Patient Records regulations: The Federal rules restrict any use of the information to criminally investigate or prosecute any alcohol or drug abuse patient.[facility] (unrecognized sect ion and content) No Status Records FoundNo Status Records FoundNo Status Records FoundNo Status Records Found INFORMATION SOURCE (unrecogn ized section and content) DATE CREATED AUTHOR 06/04/2022 [facility] DATE CREATED AUTHOR AUTHOR'S ORGANIZ ATION 01/08/2023 [facility] DATE CREATED AUTHOR AUTHOR'S ORGANIZ ATION 03/31/2023 [facility] DATE CREATED AUTHOR AUTHOR'S ORGANIZ ATION 05/14/2023 [facility] FOR RECORDS PERTAINING TO PATIENTS WHO ARE OR HAVE BEEN ENROLLED IN A CHEMICAL DEPENDENCY/SUBSTANCEABUSE PROGRAM, SOME INFORMATION MAY BE OMITTED. This clinical summary was aggregated from multiple sources. Caution should be exercised in using it in the provision of clinical care. This summary normalizes information from multiple sources, and as a consequence, information in this document may materially change the coding, format and clinical context of patient data. In addition, data may be omitted in some cases. CLINICAL DECISIONS SHOULD BE BASED ON THE PRIMARY CLINICAL RECORDS. [employer] provides no warranty or guarantee of the accuracy or completeness of information in this document.
== END 2024-05-10 16:55 | disposition home or self-care (01) ==
PROVIDERS: PCP Nurse Practitioner Family; Visit Provider Urology
DX: N20.0 Calculus of kidney (principal)
CPT/HCPCS: 74018

== ENCOUNTER 2025-04-19 07:24 | Outpatient (OUT) | payer MEDICARE, SELFPAY ==
--- OUTSIDE RECORDS SUMMARY | 2025-04-19 07:28 | XMS_ITS | CCD ---
Author Organization [facility] Care Team Providers Care Bearingizer Name Role Phone Niki Buenrostro Unavailable MITCH Buenrostro Primary Care Provider MITCH Buenrostro Attending Provider Hilario Sarmiento Primary Care Provider MITCH Buenrostro Primary Care Provider MITCH Buenrostro Attending Provider [phone] NIKI BUENROSTRO Primary Care Physician NIKI BUENROSTRO Admitting Unavailable KAPLE, NIKI Attending Unavailable KAPLIZABETH, NIKI Consulting Unavailable KAPLIZABETH, NIKI Primary Care Unavailable SHETH ., DR GATES Attending Unavailable SHETH ., DR GATES Consulting Unavailable SHETH ., DR GATES Admitting Unavailable KAPLIZABETH, NIKI Primary Care Unavailable KAPLIZABETH, NIKI Admitting Unavailable KAPLIZABETH, NIKI Attending Unavailable KAPLIZABETH, NIKI Consulting Unavailable NIKI BUENROSTRO Primary Care Unavailable MITCH Buenrostro Primary Care Provider DO Artie Mejia Emergency Provider MD Kody Mark Attending Provider [phone] Kody SHETH R Attending Unavailable SHETH, Kody R Attending Unavailable SHETH, Kody R Referring Unavailable SHETH, Kody R Attending Unavailable SHETH, Kody R Admitting Unavailable SHETH, Kody R Attending Unavailable SHETH, Kody R Attending Unavailable SHETH, Kody R Attending Unavailable SHETH, Kody R Admitting Unavailable SHETH, Kody R Attending Unavailable SHETH, Kody R Attending Unavailable SHETH, Kody R Attending Unavailable SHETH, Kody R Admitting Unavailable Linda Pantoja DO Primary Care Provider DeWilde DO, Linda Attending Provider DeWilde DO, Linda Referring Provider [phone] Arti Jimenez Attending Provider Raúl Elaine MD Attending Provider [phone] Dewilde DO, Linda Primary Care Provider DeWilde, Linda Attending Unavailable DeWilde, Linda Admitting Unavailable DeWilde, Linda Primary Care Unavailable DeWilde, Linda Admitting Unavailable DeWilde, Linda Primary Care Unavailable DeWilde, Linda Attending Unavailable DeWilde, Linda Referring Unavailable Arti Allan Admitting Unavailable Arti Allan Attending Unavailable DeKobee, Linda Primary Care Unavailable Raúl Elaine Admitting Unavailable Raúl Elaine Attending Unavailable Kit, Linda Primary Care Unavailable Anatoliy Monk DO Unavailable VERONICA FERRIS Attending Unavailable BIANATOLIY GALAN Attending Unavailable DEWILDE, LINDA Referring Unavailable Allergies Allergy Classification Reported Allergen(s) Allergy Type Date of Onset Reaction(s) Facility (3 sources) No Known Medication Allergies; Translations: [No Known Medication Allergies] Propensity to adverse reactions (disorder) [facility] Repository Medications Current Medications Medication Drug Class(es) Dates Sig (Normalized) Sig (Original) Aspir-81 81 MG (9 sources) take 1 tablet by mouth once daily Aspir-81 81 MG 1 tablet Orally Once a day for 30 day(s) Active aspirin 81 mg delayed release oral tablet (17 sources) Platelet Aggregation Inhibitor, Nonsteroidal Anti-inflammatory Drug Start: 08-02-2019 aspirin 81 mg, Refills(s) 0 Start Date: 08/02/19 Status: Ordered Repeat number: 1 Start: 08-02-2019 aspirin 81 mg, Refills(s) 0 Start Date: 08/02/19 Status: Ordered Start: 07-10-2008 take 1 tablet by william th once daily Aspirin 81 mg tablet,delayed release (DR/EC) Active 81 MG PO Daily January 04, 2024 12:00am FreeTextSi tablet Orally Once a day; Note: Source Status: Taking; Provider: Porter Prince ( ) Comment on above: Take one(1) tablet d aily. ciprofloxacin 500 mg oral tablet (2 sources) Quinolone Antimicrobial Start: 4 take 1 tablet by mouth twice daily Cipro 500 mg Tab 500 mg = 1 tab(s), Oral, BID, start 3 days prior to procedure., # 14 tab(s), Refills(s) 0, Pharmacy: [id number], 173, cm, 05/12/24 9:59:00 EDT, Height/Length Dosing, 75, kg, 05/12/24 9:59:00 EDT, Weight Dosing Start Date: 05/12/24 Status: Ordered Multi For Him 50+ (9 sources) take 1 tablet by mouth once daily Multi For Him 50+ 1 tablet Orally Once a day Active Multi Vitamin+ (8 sources) Start: Multi Vitamin+ Refill(s) 0 Start Date: 09/29/21 Status: Ordered Repeat number: 1 Start: 09-29-2021 Multi Vitamin+ Refill(s) 0 Start Date: 09/29/21 Status: Ordered Multiple Vitamins-Minerals (Multivitamin Adults) tablet (3 sources) Multiple Vitamins-Minerals (Multivitamin Adults) tablet Orally Active Multivitamin preparation (2 sources) Start: 2022 take 1 tablet by mouth once daily Multivitamin Active 1 TAB PO Daily March 04, 2023 12:00am Multivitamin Tablet (5 sources) Start: 2022 take 1 tablet by mouth once daily Multivitamin Tablet Active 1 TAB PO Daily March 04, 2023 12:00am sildenafil 100 mg oral tablet (20 sources) Phosphodiesterase 5 Inhibitor Start: 2022 take 1 tablet by mouth once daily as needed Sildenafil 100 mg tablet Active 100 MG PO Daily as needed for Sexual Activity March 04, 2023 12:00am Viagra Active Sod Picosulf-Mag Ox-Citric Ac (3 sources) Start: 01-08-2025 take 1 mL by mouth once daily Sod Picosulf-Mag Ox-Citric Ac (Clenpiq) 10 mg-3.5 gram- 12 gram/175 mL solution Active 175 ML PO Daily 08 30January 08, 2025 12:00am please follow instructions provided by Dr. Elaine's office. tadalafil 5 mg oral tablet (7 sources) Phosphodiesterase 5 Inhibitor Cialis 5 MG 1 tablet Orally prn Active tamsulosin hydrochloride 0.4 mg oral capsule (13 sources) alpha-Adrenergic Brody Start: 03-08-2023 take 1 capsule by mouth twice daily tamsulosin 0.4 mg Cap 0.4 mg = 1 cap(s), Oral, BID, # 60 cap(s), Refills(s) 0, Pharmacy: [id number], 173, cm, 02/22/23 9:11:00 EDT, Height/Length Dosing, 75, kg, 02/22/23 9:11:00 EDT, Weight Dosing Start Date: 03/08/23 Status: Ordered Quantity: 60.0 Unit: cap(s) Repeat number: 1 Start: 03-04-2023 End: 01-04-2024 take 1 capsule by mouth once daily Tamsulosin (Flomax) 0.4 mg capsule Discontinued 0.4 MG PO Daily March 04, 2023 12:00am January 04, 2024 11:32am terbinafine 250 mg oral tablet (6 sources) Allylamine Antifungal Start: 11-27-2021 take 1 tablet by mouth every twenty-four hours Terbinafine HCl 250 MG 1 tablet Orally Once a day for 90 days Oct, Active Completed/Discontinued Medications Medication Drug Class(es) Dates Sig (Normalized) Sig (Original) amoxicillin 875 mg / clavulanate 125 mg oral tablet (8 sources) Penicillin-class Antibacterial Start: 01-04-2025 End: 01-18-2025 take 1 tablet by mouth twice daily Amoxicillin-Pot Clavulanate 875-125 mg tablet Discontinued 1 TAB PO Twice daily 18 06January 04, 2025 2:41pm January 18, 2025 8:06am cyclobenzaprine hydrochloride 10 mg oral tablet (3 [...] aily. krill oil (3 sources) Krill Oil Huger- 3 300 MG Orally Not-Taking multivitamins(DAILY MULTIVITAMIN TAB) (1 source) Start: 07-10-2008 multivitamins(DAILY MULTIVITAMIN TAB) Take one(1) tablet daily. 0 07/10/2008 Active Comment on above: Take one(1) tablet d aily. naproxen 500 mg oral tablet (7 sources) Nonsteroidal Anti-inflammatory Drug Start: 03-04-2023 End: 01-04-2024 take 1 tablet by mouth twice daily as needed for pain Naproxen (Naprosyn) 500 mg tablet Discontinued 500 MG PO Twice daily as needed for pain 10 March 04, 2023 12:00am January 04, 2024 11:31am oxyCODONE hydrochloride 5 mg oral tablet (7 sources) Opioid Agonist Start: 03-04-2023 End: 01-04-2024 take 1 tablet by mouth once daily as needed for pain Oxycodone 5 mg tablet Discontinued 5 MG PO Daily as needed for severe pain (scale score 7-10) 7 March 04, 2023 January 04, 2024 11:31am rosuvastatin calcium 20 mg oral tablet (1 source) HMG-CoA Reductase Inhibitor Start: 05-02-2010 ROSUVASTATIN 20 MG TAB one tablet daily 0 05/02/2010 Active Comment on above: one tablet daily simvastatin 40 mg oral tablet (20 sources) HMG-CoA Reductase Inhibitor Start: 08-02-2019 End: 07-19-2024 take 1 tablet by mouth once daily Simvastatin 40 mg tablet Discontinued 40 MG PO Daily March 04, 2023 12:00am July 19, 2024 11:48am Simvastatin 40 M G TAKE 1 TABLET EVERY EVENING for 90 Active Suprep Bowel Prep . (3 sources) Start: 01-04-2015 Suprep Bowel P rep . as directed Orally as directed for 1 dose(s) December, Not-Taking Problems Active Problems Problem Classification Problem Date Documented Date Episodic/Chronic Abdominal pain (7 sources) Abdominal pain; Translations: [Unspecified abdominal pain] 03-04-2023 Episodic Comment on above: Problem List clean-u p per request of Phys. EHR Cmte Calculus of urinary tract (20 sources) Ureteric stone; Translations: [Calculus of ureter] Onset: 11-27-2021 Resolved: 11-27-2021 Episodic Comment on above: Problem List clean-u p per request of Phys. EHR Cmte Cancer of prostate (3 sources) Malignant neoplasm of prostate; Translations: [Malignant tumor of prostate] Onset: 06-16-2024 Chronic Coagulation and hemorrhagic disorders (20 sources) Platelet count below reference range; Translations: [Thrombocytopenia, unspecified] Onset: 01-10-2025 01-03-2024 Chronic Diabetes mellitus without complication (12 sources) Impaired fasting glycemia; Translations: [Impaired fasting glucose] Onset: 11-27-2021 Resolved: 11-27-2021 Episodic Diseases of white blood cells (6 sources) Leukopenia; Translations: [Decreased white blood cell count, unspecified] Onset: 01-26-2025 01-10-2025 Chronic Disorders of lipid metabolism (20 sources) Mixed hyperlipidemia; Translations: [Mixed hyperlipidemia] Onset: 11-27-2021 Resolved: 11-27-2021 Chronic Diverticulosis and diverticulitis (9 sources) Diverticular disease of colon; Translations: [Diverticulosis of large intestine without perforation or abscess without bleeding] Chronic Hyperplasia of prostate (20 sources) Benign prostatic hypertrophy with outflow obstruction; Translations: [Benign prostatic hyperplasia with lower urinary tract symptoms] Onset: 12-10-2022 Chronic Joint disorders and dislocations; trauma-related (1 source) Derangement of medial meniscus; Translations: [Other meniscus derangements, unspecified medial meniscus, unspecified knee] Onset: 04-08-2010 04-08-2010 Chronic Other diseases of kidney and ureters (9 sources) Hydronephrosis; Translations: [Unspecified hydronephrosis] Episodic Other ear and sense organ disorders (4 sources) Unspecified hearing loss, unspecified ear; Translations: [Unspecified hearing loss] 01-04-2025 Chronic Other ear and sense organ disorders (1 source) Mixed conductive AND sensorineural hearing loss; Translations: [Mixed conductive and sensorineural hearing loss, unilateral, left ear with restricted hearing on the contralateral side] 02-03-2025 Chronic Other ear and sense organ disorders (2 sources) Asymmetrical hearing loss; Translations: [Other specified hearing loss, bilateral] 02-10-2025 Chronic Other ear and sense organ disorders (14 sources) Tinnitus; Translations: [Tinnitus, right ear] 01-03-2024 Episodic Other ear and sense organ disorders (4 sources) Other specified disorders of left middle ear and mastoid; Translations: [Other disorders of middle ear and mastoid] 01-04-2025 Episodic Other ear and sense organ disorders (4 sources) Tinnitus, unspecified ear; Translations: [Tinnitus, unspecified] 01-04-2025 Episodic Other ear and sense organ disorders (2 sources) Tinnitus of left ear; Translations: [Tinnitus, left ear] 02-10-2025 Episodic Other endocrine disorders (8 sources) 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 Other male genital disorders (17 sources) Impotence of organic origin; Translations: [Male erectile dysfunction, unspecified] 08-05-2020 Chronic Other male genital disorders (11 sources) Male erectile dysfunction, unspecified; Translations: [Erectile dysfunction] Onset: 11-27-2021 Resolved: 11-27-2021 Chronic Other male genital disorders (4 sources) Atypical small acinar proliferation of prostate 05-12-2024 Episodic Other male genital disorders (1 source) Dysplasia of prostate; 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] Onset: 05-12-2024 Episodic Other nutritional; endocrine; and metabolic disorders (12 sources) Hypocalcemia; Translations: [Hypocalcemia] 01-04-2025 Chronic Other nutritional; endocrine; and metabolic disorders (7 sources) Hypocalcemia; Translations: [Hypocalcemia] Onset: 12-31-2021 Resolved: 12-31-2021 Chronic Other screening for suspected conditions (not mental disorders or infectious disease) (6 sources) Encounter for screening for malignant neoplasm of colon; Translations: [Special screening for malignant neoplasms of colon] Onset: 01-10-2025 01-04-2025 Episodic Otitis media and related conditions (4 sources) Otitis media, unspecified, unspecified ear; Translations: [Unspecified otitis media] 01-04-2025 Episodic Residual codes; unclassified (2 sources) Family history of cancer; Translations: [Family history of malignant neoplasm of prostate] Onset: 12-10-2022 Episodic Residual codes; unclassified (8 sources) Family history of prostate cancer 08-05-2020 Episodic Spondylosis; intervertebral disc disorders; other back problems (5 sources) Low back pain; Translations: [Low back pain] 01-04-2025 Episodic Unclassified (6 sources) Obstructive hydronephrosis 04-27-2023 Unclassified (1 source) Low back pain, unspecified; Translations: [Low back pain, unspecified] Onset: 01-04-2025 Past or Other Problems Problem Classification Problem Date Documented Date Episodic/Chronic Mycoses (8 sources) Tinea unguium; Translations: [TINEA UNGUIUM] Onset: 11-27-2021 Resolved: 03-03-2022 Episodic Other ear and sense organ disorders (4 sources) Conductive hearing loss of combined sites; Translations: [Conductive hearing loss, unspecified] Onset: 10-31-2008 Resolved: 02-08-2025 10-31-2008 Chronic Other ear and sense organ disorders (3 sources) Mixed conductive and sensorineural hearing loss of left ear; Translations: [Mixed conductive and sensorineural hearing loss, unilateral, left ear, with unrestricted hearing on the contralateral side] Onset: 02-08-2025 Resolved: 02-08-2025 02-08-2025 Chronic Other ear and sense organ disorders (3 sources) Sensorineural hearing loss, bilateral; Translations: [Sensorineural hearing loss, bilateral] Onset: 02-08-2025 Resolved: 02-08-2025 02-08-2025 Chronic Other ear and sense organ disorders (3 sources) Sensorineural hearing loss, unilateral, right ear, with unrestricted hearing on the contralateral side; Translations: [Sensorineural hearing loss, unilateral] Onset: 02-08-2025 Resolved: 02-08-2025 02-08-2025 Chronic Other ear and sense organ disorders (1 source) Cholesteatoma of mastoid, unspecified ear; Translations: [Cholesteatoma of middle ear and mastoid] Onset: 10-31-2008 10-31-2008 Episodic Other ear and sense organ disorders (3 sources) Cholesteatoma of middle ear and mastoid; Translations: [Cholesteatoma of mastoid, unspecified ear] Onset: 10-31-2008 Resolved: 02-08-2025 02-08-2025 Episodic Other ear and sense organ disorders (3 sources) Tinnitus of right ear; Translations: [Tinnitus, right ear] Onset: 02-08-2025 Resolved: 02-08-2025 02-08-2025 Episodic Other non-traumatic joint disorders (4 sources) Pain in lower limb; Translations: [Pain in unspecified knee] Onset: 05-15-2010 Resolved: 02-08-2025 05-15-2010 Episodic Sprains and strains (1 source) Strain of muscle, fascia and tendon of lower back, initial encounter Onset: 05-13-2022 Resolved: 05-13-2022 Episodic Results Test Name Value Interpretation Reference Range Facility Auditory function testson Right Ear: Mild to moderate hearing loss above 2K Hz. Unable to mask bone conduction thresholds Left Ear: Mild to moderate hearing loss from 250 Hz - 500 Hz rising to mild hearing loss from 1K Hz - 1500 Hz. Mild sloping to profound hearing loss above 3K Hz. Unable to mask bone conduction threshold at 4K Hz [facility] A1C with Estimated Average G abel 01-10-2025 Glucose [Mass/Vol] 111 mg/dL Normal [facility] Comment on above: Result Comment: PERF ORMED BY: [place] [address] PATHOLOGIST RADIO PROGRAM CHECKER FAY TOLBERT M.D. Performed By: #### C MP, A1C WTH eA, CBC, LIPID #### [facility] [address] [place] [address] HbA1c (Bld) [Mass fraction] 5.5 % Normal 4.3-5.6 [facility] Comment on above: Result Comment: Incr eased risk for diabetes: 5.7 - 6.4 diabetes: >6.4 glycemic control for adults with diabetes: <7.0 Performed By: #### C MP, A1C WTH eA, CBC, LIPID #### [facility] [address] [place] [address] Alanine aminotransferase [En zymatic activity/volume] in Serum or PlasmaOrdered By: Linda Pantoja on 01-10-2025 ALT [Catalytic activity/Vol] Alanine aminotransferase [Enzymatic activity/volume] in Serum or Plasma [facility] Albumin [Mass/volume] in Ser um or Plasma by Bromocresol green (BCG) dye binding methoOrdered By: Linda Pantoja on 01-10-2025 Albumin BCG dye [Mass/Vol] Albumin [Mass/volume] in Serum or Plasma by Bromocresol green (BCG) dye binding metho 3.5-5.7 [facility] Alkaline phosphatase [Enzyma tic activity/volume] in Serum or PlasmaOrdered By: Linda Pantoja on 01-10-2025 ALP [Catalytic activity/Vol] Alkaline phosphatase [Enzymatic activity/volume] in Serum or Plasma 34-104 [facility] Aspartate aminotransferase [ Enzymatic activity/volume] in Serum or PlasmaOrdered By: Linda Pantoja on 01-10-2025 AST [Catalytic activity/Vol] Aspartate aminotransferase [Enzymatic activity/volume] in Serum or Plasma 13-39 [facility] Basophils Auto (Bld) [#/Vol] Ordered By: Linda Pantoja on 01-10-2025 Basophils (Bld) [#/Vol] Automated basoph il count 0.0-0.2 [facility] Basophils/100 WBC Auto (Bld) Ordered By: Linda Pantoja on 01-10-2025 Basophils/100 WBC (Bld) Automated basophil % . [facility] Bilirubin.total [Mass/volume ] in Serum or PlasmaOrdered By: Linda Pantoja on 01-10-2025 Bilirubin [Mass/Vol] Bilirubin.total [Mass/volume] in Serum or Plasma 0.3-1.0 [facility] Blood estimated average gluc ose determination by estimation from glycated hemoglobinOrdered By: Linda Pantoja on 01-10-2025 Average glucose Estimated from glycated hemoglobin (Bld) [Mass/Vol] Glucose mean value [Mass/volume] in Blood Estimated from glycated hemoglobin [facility] Calcium [Mass/volume] in Ser um or PlasmaOrdered By: Linda Pantoja on 01-10-2025 Calcium [Mass/Vol] Calcium [Mass/volume ] in Serum or Plasma 8.6-10.3 [facility] Carbon dioxide, total [Moles /volume] in Serum or PlasmaOrdered By: Linda Pantoja on 01-10-2025 CO2 [Moles/Vol] Carbon dioxide, tota l [Moles/volume] in Serum or Plasma High 21.0-31.0 [facility] Chloride [Moles/volume] in S bart or PlasmaOrdered By: Linda Pantoja on 01-10-2025 Chloride [Moles/Vol] Chloride [Moles/volume] in Serum or Plasma 98-107 [facility] Cholesterol [Mass/volume] in Serum or PlasmaOrdered By: Linda Pantoja on 01-10-2025 Cholesterol [Mass/Vol] Cholesterol [Mass/volume] in Serum or Plasma 140-200 [facility] Comment on above: Chol less than 200 m g/dl low riskChol 201-239 mg/dl borderline riskChol 240 mg/dl and greater high risk Cholesterol in HDL [Mass/vol ume] in Serum or PlasmaOrdered By: Linda Pantoja on 01-10-2025 Cholesterol in HDL [Mass/Vol] Serum or plasma high density lipoprotein (HDL) cholesterol measurement 23-92 [facility] Comment on above: HDL CHOL ATP-III CLA SSIFICATION Cardiovascular RiskHDL > or equal to 60 mg/dL LOWHDL < 40 mg/dL HIGH Cholesterol in LDL Calc [Mas s/Vol]Ordered By: Linda Pantoja on 01-10-2025 Cholesterol in LDL [Mass/Vol] Cholesterol in LDL [Mass/volume] in Serum or Plasma by calculation 0-100 [facility] Comment on above: LDL ATP III CLASSIFI CATIONLDL less than 100 mg/dL OptimalLDL 100-129 mg/dL Near or above optimalLDL 130-159 mg/dL Borderline highLDL 160-189 mg/dL HighLDL greater than 189 mg/dL Very high Cholesterol in VLDL Calc [Ma ss/Vol]Ordered By: Linda Pantoja on 01-10-2025 Cholesterol in VLDL [Mass/Vol] Cholesterol in VLDL [Mass/volume] in Serum or Plasma by calculation [facility] Complete Blood Count Auto Di ffon 01-10-2025 Basophils (Bld) [#/Vol] 0.0 10*3/uL Normal 0.0-0.2 [facility] Comment on above: Result Comment: PERF ORMED BY: [place] [address] PATHOLOGIST RADIO PROGRAM CHECKER FAY TOLBERT M.D. Performed By: #### C MP, A1C WTH eA, CBC, LIPID #### [address] Basophils/100 WBC (Bld) 0.8 % Normal . T [facility] Comment on above: Performed By: #### C MP, A1C WTH eA, CBC, LIPID #### [address] Eosinophils (Bld) [#/Vol] 0.2 10*3/uL Normal 0.0-0.45 [facility] Comment on above: Performed By: #### C MP, A1C WTH eA, CBC, LIPID #### [address] Eosinophils/100 WBC (Bld) 4.7 % Normal . [facility] Comment on above: Performed By: #### C MP, A1C WTH eA, CBC, LIPID #### [address] Erythrocyte distribution width (RBC) [Ratio] 14.2 % Normal 12.0-14.8 [facility] Comment on above: Performed By: #### C MP, A1C WTH eA, CBC, LIPID #### [address] Hematocrit (Bld) [Volume fraction] 45.9 % Normal 38.8-50.0 [facility] Comment on above: Performed By: #### C MP, A1C WTH eA, CBC, LIPID #### [address] Hemoglobin (Bld) [Mass/Vol] 15.5 g/dL Normal 13.0-17.0 [facility] Comment on above: Performed By: #### C MP, A1C WTH eA, CBC, LIPID #### [address] Lymphocytes (Bld) [#/Vol] 1.0 10*3/uL Normal 1.00-4.8 [facility] Comment on above: Performed By: #### C MP, A1C WTH eA, CBC, LIPID #### [address] Lymphocytes/100 WBC (Bld) 27.2 % Normal . [facility] Comment on above: Performed By: #### C MP, A1C WTH eA, CBC, LIPID #### [address] MCH (RBC) [Entitic mass] 31.6 pg Normal 27.5-35.2 [facility] Comment on above: Performed By: #### C MP, A1C WTH eA, CBC, LIPID #### [address] MCV (RBC) [Entitic vol] 93.6 fL Normal 83.5-101 [facility] Comment on above: Performed By: #### C MP, A1C WTH eA, CBC, LIPID #### [address] Mean Corpuscular HGB Conc 33.8 g/dL Normal 32.5-35.6 [facility] Comment on above: Performed By: #### C MP, A1C WTH eA, CBC, LIPID #### [address] Monocytes (Bld) [#/Vol] 0.5 10*3/uL Normal 0.0-0.8 [facility] Comment on above: Performed By: #### C MP, A1C WTH eA, CBC, LIPID #### [address] Monocytes/100 WBC (Bld) 12.8 % Normal . [facility] Comment on above: Performed By: #### C MP, A1C WTH eA, CBC, LIPID #### [address] Neutrophils (Bld) [#/Vol] 2.0 10*3/uL Normal 1.8-7.7 [facility] Comment on above: Performed By: #### C MP, A1C WTH eA, CBC, LIPID #### [address] Neutrophils/100 WBC (Bld) 54.5 % Normal . [facility] Comment on above: Performed By: #### C MP, A1C WTH eA, CBC, LIPID #### [address] NRBC% 0.2 /100{WBC} Normal 0-0.5 [facility] Comment on above: Performed By: #### C MP, A1C WTH eA, CBC, LIPID #### [address] Platelet mean volume (Bld) [Entitic vol] 9.4 fL Normal 6.6-10.1 [facility] Comment on above: Performed By: #### C MP, A1C WTH eA, CBC, LIPID #### [address] Platelets (Bld) [#/Vol] 146 10*3/uL Low 150-450 [facility] Comment on above: Performed By: #### C MP, A1C WTH eA, CBC, LIPID #### [address] RBC (Bld) [#/Vol] 4.90 10*6/uL Normal 3.90-5.60 [facility] Group Comment on above: Performed By: #### C MP, A1C WTH eA, CBC, LIPID #### [address] WBC (Bld) [#/Vol] 3.6 10*3/uL Low 4.1-10.5 [facility] Comment on above: Performed By: #### C MP, A1C WTH eA, CBC, LIPID #### [address] Comprehensive Metabolic Pane evelin 01-10-2025 Albumin [Mass/Vol] 4.4 g/dL Normal 3.5-5.7 [facility] Comment on above: Order Comment: [email or web address] Performed By: #### C MP, A1C WTH eA, CBC, LIPID #### [place] [address] [place] Albumin/Globulin [Mass ratio] 2.2 {ratio} Normal The [facility] Comment on above: Order Comment: [email or web address] Performed By: #### C MP, A1C WTH eA, CBC, LIPID #### [place] [address] [place] ALP [Catalytic activity/Vol] 53 U/L Normal 34-104 [facility] Comment on above: Order Comment: [email or web address] Performed By: #### C MP, A1C WTH eA, CBC, LIPID #### [address] ALT [Catalytic activity/Vol] 24 U/L Normal 7-52 [facility] Comment on above: Order Comment: [email or web address] Performed By: #### C MP, A1C WTH eA, CBC, LIPID #### [address] Anion gap [Moles/Vol] 7.4 mmol/L Normal 6.0-15.0 [facility] Comment on above: Order Comment: [email or web address] Performed By: #### C MP, A1C WTH eA, CBC, LIPID #### [place] [address] [place] AST [Catalytic activity/Vol] 27 U/L Normal 13-39 [facility] Comment on above: Order Comment: [email or web address] Performed By: #### C MP, A1C WTH eA, CBC, LIPID #### [place] [address] [place] Bilirubin [Mass/Vol] 0.9 mg/dL Normal 0.3-1.0 [facility] Comment on above: Order Comment: [email or web address] Performed By: #### C MP, A1C WTH eA, CBC, LIPID #### [place] [address] [place] Calcium [Mass/Vol] 9.2 mg/dL Normal 8.6-10.3 [facility] Comment on above: Order Comment: [email or web address] Performed By: #### C MP, A1C WTH eA, CBC, LIPID #### [facility] [address] Chloride [Moles/Vol] 107 mmol/L Normal 98-107 [facility] Comment on above: Order Comment: [email or web address] Performed By: #### C MP, A1C WTH eA, CBC, LIPID #### [facility] [address] CO2 [Moles/Vol] 31.4 mmol/L High 21.0-31.0 The [facility] Comment on above: Order Comment: [email or web address] Performed By: #### C MP, A1C WTH eA, CBC, LIPID #### [address] Creatinine [Mass/Vol] 0.77 mg/dL Normal 0.70-1.30 [facility] Comment on above: Order Comment: [email or web address] Performed By: #### C MP, A1C WTH eA, CBC, LIPID #### [place] [address] [place] GFR/1.73 sq M.predicted MDRD (S/P/Bld) [Vol rate/Area] mL/min/{1.73_m2} Normal [facility] Comment on above: Order Comment: [email or web address] Performed By: #### C MP, A1C WTH eA, CBC, LIPID #### [facility] [address] Globulin (S) [Mass/Vol] 2.0 g/dL Normal T he [facility] Comment on above: Order Comment: [email or web address] Performed By: #### C MP, A1C WTH eA, CBC, LIPID #### [facility] [address] Glucose [Mass/Vol] 100 mg/dL Normal 70-100 [facility] Comment on above: Order Comment: [email or web address] Result Comment: [place] Glucose Reference Range is dependent on time and content of last meal. Glucose of more than 200 mg/dL in a nonstressed, ambulatory subject supports the diagnosis of Diabetes Mellitus. ADA recommended reference range Performed By: #### C MP, A1C WTH eA, CBC, LIPID #### [facility] [address] Potassium [Moles/Vol] 4.8 mmol/L Normal 3.5-5.1 [facility] Comment on above: Order Comment: [email or web address] Performed By: #### C MP, A1C WTH eA, CBC, LIPID #### [facility] [address] [place] [address] [place] Protein [Mass/Vol] 6.4 g/dL Normal 6.4-8.9 [facility] Comment on above: Order Comment: [email or web address] Performed By: #### C MP, A1C WTH eA, CBC, LIPID #### [facility] [address] [place] [address] [place] Sodium [Moles/Vol] 141 mmol/L Normal 136-145 [facility] Comment on above: Order Comment: [email or web address] Performed By: #### C MP, A1C WTH eA, CBC, LIPID #### [facility] [address] [place] [address] [place] Urea nitrogen [Mass/Vol] 13 mg/dL Normal 7-25 [facility] Comment on above: Order Comment: [email or web address] Performed By: #### C MP, A1C WTH eA, CBC, LIPID #### [facility] [address] [place] [address] [place] Creatinine [Mass/volume] in Serum or PlasmaOrdered By: Linda Pantoja on 01-10-2025 Creatinine [Mass/Vol] Creatinine [Mass/volume] in Serum or Plasma 0.70-1.30 [facility] Eosinophils Auto (Bld) [#/Vo l]Ordered By: Linda Pantoja on 01-10-2025 Eosinophils (Bld) [#/Vol] Automated eosinophil count 0.0-0.45 [facility] Eosinophils/100 WBC Auto (Bl d)Ordered By: Linda Pantoja on 01-10-2025 Eosinophils/100 WBC (Bld) Automated eosinophil % . [facility] Erythrocyte distribution wid th Auto (RBC) [Ratio]Ordered By: Linda Pantoja on 01-10-2025 Erythrocyte distribution width (RBC) [Ratio] Erythrocyte distribution width [Ratio] by Automated count 12.0-14.8 [facility] Globulin Calc (S) [Mass/Vol] Ordered By: Linda Pantoja on 01-10-2025 Globulin (S) [Mass/Vol] Serum globulin measurement by calculation (mass/volume) [facility] Glucose [Mass/volume] in Ser um or PlasmaOrdered By: Linda Pantoja on 01-10-2025 Glucose [Mass/Vol] Glucose [Mass/volume ] in Serum or Plasma 70-100 [facility] Comment on above: ADA recommended refe rence rangeRandom Glucose Reference Range is dependent on time and content of last meal. Glucose of more than 200 mg/dL in a nonstressed, ambulatory subject supports the diagnosis of Diabetes Mellitus. Hematocrit Auto (Bld) [Volum e fraction]Ordered By: Linda Pantoja on 01-10-2025 Hematocrit (Bld) [Volume fraction] Hematocrit [Volume Fraction] of Blood by Automated count 38.8-50.0 [facility] Hemoglobin A1c/Hemoglobin.to chaz in BloodOrdered By: Linda Pantoja on 01-10-2025 HbA1c (Bld) [Mass fraction] Hemoglobin A1c percentage 4.3-5.6 [facility] Comment on above: Increased risk for d iabetes: 5.7 - 6.4diabetes: >6.4glycemic control for adults with diabetes: <7.0 Hemoglobin [Mass/volume] in BloodOrdered By: Linda Pantoja on 01-10-2025 Hemoglobin (Bld) [Mass/Vol] Hemoglobin [Mass/volume] in Blood 13.0-17.0 [facility] Leukocytes [#/volume] correc cherie for nucleated erythrocytes in Blood by Automated counOrdered By: Linda Pantoja on 01-10-2025 WBC corrected for nucl RBC Auto (Bld) [#/Vol] Leukocytes [#/volume] corrected for nucleated erythrocytes in Blood by Automated coun Low 4.1-10.5 [facility] Lipid Panelon 01-10-2025 Cholesterol [Mass/Vol] 142 mg/dL Normal 140-200 Th e [facility] Comment on above: Order Comment: HEIDI REDKW Result Comment: Chol less than 200 mg/dl low risk Chol 201-239 mg/dl borderline risk Chol 240 mg/dl and greater high risk Performed By: #### C MP, A1C WTH eA, CBC, LIPID #### [facility] [address] [place] [address] [place] Cholesterol in HDL [Mass/Vol] 47 mg/dL Normal 23-92 [facility] Comment on above: Order Comment: HEIDI REDKW Result Comment: HDL CHOL ATP-III CLASSIFICATION Cardiovascular Risk HDL > or equal to 60 mg/dL LOW HDL < 40 mg/dL HIGH Performed By: #### C MP, A1C WTH eA, CBC, LIPID #### [facility] [address] Cholesterol.total/Adri sterol in HDL [Mass ratio] 3.0 {ratio} Normal <5.0 [facility] Comment on above: Order Comment: HEIDI MAN Result Comment: PERF ORMED BY: [place] [address] PATHOLOGIST [employer]IO PROGRAM CHECKER FAY TOLBERT M.D. Performed By: #### C MP, A1C WTH eA, CBC, LIPID #### [facility] [address] [place] [id number] [facility] LDL Cholesterol,Calculated 81 mg/dL Normal 0-100 [facility] Comment on above: Order Comment: HEIDI HERNANDEZW Result Comment: LDL ATP III CLASSIFICATION LDL less than 100 mg/dL Optimal LDL 100-129 mg/dL Near or above optimal LDL 130-159 mg/dL Borderline high LDL 160-189 mg/dL High LDL greater than 189 mg/dL Very high Performed By: #### C MP, A1C WTH eA, CBC, LIPID #### [facility] [address] Triglyceride w/Reflex 68 mg/dL Normal 0-149 [facility] Comment on above: Order Comment: HEIDI MAN Result Comment: TRIG ATP III CLASSIFICATION TRIG less than 150 mg/dL Normal TRIG 150-199 mg/dL Borderline high TRIG 200-500 mg/dL High TRIG greater than 500 mg/dL Very high Standard traceable to the Center for Disease Conrtrol and Prevention (CDC) test method. Performed By: #### C MP, A1C WTH eA, CBC, LIPID #### [facility] [address] VLDL CHOLESTEROL 13 mg/dL Normal [facility] Comment on above: Order Comment: HEIDI HERNANDEZW Performed By: #### C MP, A1C WTH eA, CBC, LIPID #### [facility] [address] Lymphocytes Auto (Bld) [#/Vo l]Ordered By: Linda Pantoja on 01-10-2025 Lymphocytes (Bld) [#/Vol] Lymphocytes [#/volume] in Blood by Automated count 1.00-4.8 [facility] Lymphocytes/100 WBC Auto (Bl d)Ordered By: Linda Pantoja on 01-10-2025 Lymphocytes/100 WBC (Bld) Lymphocytes/100 leukocytes in Blood by Automated count . [facility] MCH Auto (RBC) [Entitic mass ]Ordered By: Linda Pantoja on 01-10-2025 MCH (RBC) [Entitic mass] MCH [Entitic mass] by Automated count 27.5-35.2 [facility] MCHC Auto (RBC) [Mass/Vol]Or dered By: Linda Pantoja on 01-10-2025 MCHC (RBC) [Mass/Vol] MCHC [Mass/volume] by Automated count 32.5-35.6 [facility] MCV Auto (RBC) [Entitic vol] Ordered By: Linda Pantoja on 01-10-2025 MCV (RBC) [Entitic vol] MCV [Entitic vol ume] by Automated count 83.5-101 [facility] Monocytes Auto (Bld) [#/Vol] Ordered By: Linda Pantoja on 01-10-2025 Monocytes (Bld) [#/Vol] Automated blood monocyte count 0.0-0.8 [facility] Monocytes/100 WBC Auto (Bld) Ordered By: Linda Pantoja on 01-10-2025 Monocytes/100 WBC (Bld) Automated monocyte % . [facility] Neutrophils Auto (Bld) [#/Vo l]Ordered By: Linda Pantoja on 01-10-2025 Neutrophils (Bld) [#/Vol] Neutrophils [#/volume] in Blood by Automated count 1.8-7.7 [facility] Neutrophils/100 WBC Auto (Bl d)Ordered By: Linda Pantoja on 01-10-2025 Neutrophils/100 WBC (Bld) Automated neutrophil % . [facility] No Panel InformationOrdered By: Linda Pantoja on 01-10-2025 Estimated GFR (CKD-EPI) > 60.0 mL/Min [facility] Creatinine Clearance (Chem N/A [facility] Nucleated erythrocytes [Pres ence] in Blood by Automated countOrdered By: Linda Pantoja on 01-10-2025 Nucleated RBC Auto Ql (Bld) Nucleated erythrocytes [Presence] in Blood by Automated count 0-0.5 [facility] Platelet mean volume Auto (B ld) [Entitic vol]Ordered By: Linda Pantoja on 01-10-2025 Platelet mean volume (Bld) [Entitic vol] Platelet mean volume [Entitic volume] in Blood by Automated count 6.6-10.1 [facility] Platelets Auto (Bld) [#/Vol] Ordered By: Linda Pantoja on 01-10-2025 Platelets (Bld) [#/Vol] Platelets [#/vol ume] in Blood by Automated count Low 150-450 [facility] Potassium [Moles/volume] in Serum or PlasmaOrdered By: Linda Pantoja on 01-10-2025 Potassium [Moles/Vol] Potassium [Moles/volume] in Serum or Plasma 3.5-5.1 [facility] Protein [Mass/volume] in Ser um or PlasmaOrdered By: Linda Pantoja on 01-10-2025 Protein [Mass/Vol] Protein [Mass/volume ] in Serum or Plasma 6.4-8.9 [facility] RBC Auto (Bld) [#/Vol]Ordere d By: Linda Pantoja on 01-10-2025 RBC (Bld) [#/Vol] Erythrocytes [#/volume] in Blood by Automated count 3.90-5.60 [facility] Serum or plasma albumin/glob ulin mass ratioOrdered By: Linda Pantoja on 01-10-2025 Albumin/Globulin [Mass ratio] Serum or plasma albumin/globulin mass ratio [facility] Serum or plasma anion gap de terminationOrdered By: Linda Pantoja on 01-10-2025 Anion gap [Moles/Vol] Serum or plasma an ion gap determination 6.0-15.0 [facility] Serum or plasma total choles terol/high density lipoprotein (HDL) cholesterol mass ratOrdered By: Linda Pantoja on 01-10-2025 Cholesterol.total/Adri sterol in HDL [Mass ratio] Serum or plasma total cholesterol/high density lipoprotein (HDL) cholesterol mass rat <5.0 [facility] Sodium [Moles/volume] in Ser um or PlasmaOrdered By: Linda Pantoja on 01-10-2025 Sodium [Moles/Vol] Sodium [Moles/volume ] in Serum or Plasma 136-145 [facility] Triglyceride [Mass/volume] i n Serum or PlasmaOrdered By: Linda Pantoja on 01-10-2025 Triglyceride [Mass/Vol] Triglyceride [Mass/volume] in Serum or Plasma 0-149 [facility] Comment on above: TRIG ATP III CLASSIF ICATIONTRIG less than 150 mg/dL NormalTRIG 150-199 mg/dL Borderline highTRIG 200-500 mg/dL High TRIG greater than 500 mg/dL Very highStandard traceable to the Center for Disease Conrtrol and Prevention (CDC) test method. Urea nitrogen [Mass/volume] in Serum or PlasmaOrdered By: Linda Pantoja on 01-10-2025 Urea nitrogen [Mass/Vol] Urea nitrogen [Mass/volume] in Serum or Plasma 7-25 [facility] WBC Auto (Bld) [#/Vol]Ordere d By: Linda Pantoja on 01-10-2025 WBC (Bld) [#/Vol] Leukocytes [#/volume ] in Blood by Automated count Low 4.1-10.5 [facility] X-ray reportOrdered By: Nehemias Lu on 01-04-2025 Study report [facility] Main [address] [address] XRay Report Signed Patient: Flores Dolan MR#: [id number] : 1950 Acct:[id number] Age/Sex: 74 / M ADM Date: 5 Loc: XDS Room: Type: [facility] Attending Dr: Linda Pantoja DO Copies to: Linda Pantoja DO~ Ordering Provider: Linda Pantoja DO Date of Service: 01/04/25 XR/XR sacrum coccyx min 2V: M54.50 - Low back pain, unspecified XR sacrum coccyx min 2V 01/04/2025 4:23 PM SIGNS AND SYMPTOMS: ^M54.50 - Low back pain, unspecified PROTOCOL: Frontal and lateral radiograph of the sacrum and coccyx COMPARISON: None FINDINGS: The sacrum and coccyx are grossly intact. Degenerative changes are noted in thelower lumbar spine. The sacroiliac joints and hips are preserved. XR/XR sacrum coccyx min 2V IMPRESSION: No acute bony injury. There is partial visualization of degenerative change of the lower lumbar spine. Impression dictated by: Nehemias Lu M.D. 01/04/2025 6:09 PM Dictation Location: [place] [address] Transcribed By: [facility] 01/04/251808 Dictated By: Nehemias Lu II, MD 01/04/251807 Signed By: 01/04/251808 [facility] Work Phone: Study report [address] [address] XRay Report Signed Patient: Flores Dolan MR#: [id number] : 1950 Acct:[id number] Age/Sex: 74 / M ADM Date: 5 Loc: XDS Room: Type: REG CLI Attending Dr: Linda Pantoja DO Copies to: Linda Pantoja DO~ Ordering Provider: Linda Pantoja DO Date of Service: 01/04/25 XR/XR lumbar spine 2-3V*: M54.50 - Low back pain, unspecified XR lumbar spine 2-3V* 01/04/2025 4:23 PM SIGNS AND SYMPTOMS: ^M54.50 - Low back pain, unspecified PROTOCOLS: Frontal and lateral radiograph of the lumbar spine COMPARISON: None FINDINGS: There is 3 mm of anterolisthesis of L3 upon L4. The bones are otherwise in anatomic alignment. There is no fracture or destructive lesion. There is moderate disc height loss at L4-5 and L5-S1. There is mild disc heightloss at L3-L4. The sacrum and sacroiliac joints are normal. XR/XR lumbar spine 2-3V* IMPRESSION: No acute bony injury. Disc degenerative changes are present, greatest at L4-5. There is 3 mm of anterolisthesis of L3 upon L4. Impression dictated by: Nehemias Lu M.D. 01/04/2025 6:08 PM Dictation Location: [place] [address] Transcribed By: [facility] 01/04/251807 Dictated By: Nehemias Lu II, MD 01/04/251806 Signed By: 01/04/251807 [facility] Work Phone: XR lumbar spine 2-3V*on XR lumbar spine 2-3V* [facility] [place] [address] XRay Report Signed Patient: Flores Dolan MR#: [id number] : 1950 Acct:[id number] Age/Sex: 74 / M ADM Date: 01/04/25 Loc: XDS Room: Type: REG CLI Attending Dr: Linda Pantoja DO Copies to: Linda Pantoja DO Ordering Provider: Linda Pantoja DO Date of Service: 01/04/25 XR/XR lumbar spine 2-3V*: M54.50 - Low back pain, unspecified XR lumbar spine 2-3V* 01/04/2025 4:23 PM SIGNS AND SYMPTOMS: M54.50 - Low back pain, unspecified PROTOCOLS: Frontal and lateral radiograph of the lumbar spine COMPARISON: None FINDINGS: There is 3 mm of anterolisthesis of L3 upon L4. The bones are otherwise in anatomic alignment. There is no fracture or destructive lesion. There is moderate disc height loss at L4-5 and L5-S1. There is mild disc height loss at L3-L4. The sacrum and sacroiliac joints are normal. XR/XR lumbar spine 2-3V* IMPRESSION: No acute bony injury. Disc degenerative changes are present, greatest at L4-5. There is 3 mm of anterolisthesis of L3 upon L4. Impression dictated by: Nehemias Lu M.D. 01/04/2025 6:08 PM Dictation Location: [place] [address] Transcribed By: [facility] 01/04/251807 Dictated By: Nehemias Lu II, MD 01/04/251806 Signed By: 01/04/251807 Normal [facility] XR sacrum coccyx min 2Von XR sacrum coccyx min 2V [facility] [place] [address] XRay Report Signed Patient: Flores Dolan MR#: [id number] : 1950 Acct:[id number] Age/Sex: 74 / M ADM Date: 01/04/25 Loc: XDS Room: Type: [facility] Attending Dr: Linda Pantoja DO Copies to: Linda Pantoja DO Ordering Provider: Linda Pantoja DO Date of Service: 01/04/25 XR/XR sacrum coccyx min 2V: M54.50 - Low back pain, unspecified XR sacrum coccyx min 2V 01/04/2025 4:23 PM SIGNS AND SYMPTOMS: M54.50 - Low back pain, unspecified PROTOCOL: Frontal and lateral radiograph of the sacrum and coccyx COMPARISON: None FINDINGS: The sacrum and coccyx are grossly intact. Degenerative changes are noted in the lower lumbar spine. The sacroiliac joints and hips are preserved. XR/XR sacrum coccyx min 2V IMPRESSION: No acute bony injury. There is partial visualization of degenerative change of the lower lumbar spine. Impression dictated by: Nehemias Lu M.D. 01/04/2025 6:09 PM Dictation Location: [facility] Transcribed By: BRIANNA 01/04/251808 Dictated By: Nehemias Lu II, MD 01/04/251807 Signed By: 01/04/251808 Normal [facility] Ambulatory Visit Summaryon 0 12-08-2024 Ambulatory Visit Summary Ambulatory Visit Summary FLORES DOLAN :1950 Visit Date:12/08/2024 Ambulatory Visit Instructions Your Diagnosis Prostate cancer History of kidney stones Organic impotence Your Care Team Attending Physician - Kody SHETH MD Primary Care Physician - NONE, XXXX This Is Your Medications List sildenafil (sildenafil 100 mg Tab) Contact prescribing physician if questions or concerns aspirin multivitamin (Multi Vitamin+) simvastatin Procedures Performed Transrectal needle biopsy of prostate (04/28/2023), History of knee surgery, Tonsillectomy. Discharge Vitals Temperature (Temporal Artery) 37 ???C Heart Rate (Peripheral) 79 Respiratory Rate 16 Blood Pressure 138/83 Height 173 cm Height 68 in Weight 75.3 kg Weight 166.008 lb BMI 25.16 What to do next You Need to Schedule the Following Appointments Follow Up with SARA QIU, Kody Plasencia, URL When: Where: [facility] [address] [place] [address]- Medications What How Much When Instructions Unchanged [...] that you are currently receiving treatment for. Family history of prostate cancer History of kidney stones Hyperlipidemia Hypogonadism in male Organic impotence Prostate cancer Patient Survey You may receive a survey via text or e-mail asking about your office visit. Please share your experience with us by completing your survey. We appreciate your feedback and thank you for choosing us for your care. Education Materials Transrectal Ultrasound-Guided Prostate Biopsy, Care After The following information offers guidance on how to care for yourself after your procedure. Your health care provider may also give you more specific instructions. If you have problems or questions, contact your health care provider. What can I expect after the procedure? After the procedure, it is common to have: ??? Pain and discomfort near your rectum, especially while sitting. ??? [place]-colored urine due to small amounts of blood in your urine. ??? A burning feeling while urinating. ??? Blood in your stool (feces) or bleeding from your rectum. ??? Blood in your semen. Follow these instructions at home: Medicines ??? Take datt-rbw-karmjze and prescription medicines only as told by your health care provider. ??? If you were given a sedative during your procedure, it can affect you for several hours. Do not drive or operate machinery until your health care provider says that it is safe. ??? If you were prescribed an antibiotic medicine, take it as told by your health care provider. Do not stop using the antibiotic even if you start to feel better. Activity ??? Return to your normal activities as told by your health care provider. Ask your health care provider what activities are safe for you. ??? Ask your health care provider when it is okay for you to resume sexual activity. ??? You may have to avoid lifting. Ask your health care provider how much you can safely lift. General instructions ??? Drink enough fluid to keep your urine pale yellow. ??? Watch your urine, stool, and semen for new or increased bleeding. ??? Keep all follow-up visits. This is important. Contact a health care provider if: ??? You have any of the following: ? Blood clots in your urine or stool. ? Blood in your urine more than 2 weeks after the procedure. ? Blood in your semen more than 2 months after the procedure. ? New or increased bleeding in your urine, stool, or semen. ? Severe pain in your abdomen. ??? Your urine smells bad or unusual. ??? You have trouble urinating. ??? Your lower abdomen feels firm. ??? You have problems getting an erection. ??? You have nausea or you vomit. Get help right away if: ??? You have a fever or chills. This could be a sign of infection. ??? You have bright red urine. ??? You have severe pain that does not get better with medicine. ??? You cannot urinate. Summary ??? After this procedure, it is common to have pain and discomfort around your rectum, especially while sitting. ??? You may have blood in your urine and stool after the procedure. ??? It is common to have blood in your semen after this procedure. ??? Get help right away if you have a fever or chills. This could be a sign of infection. This information is not intended to replace advice given to you by your health care provider. Make sure you dis (more content not included)... Normal [place] Urology Office/Clinic Noteon 12-08-2024 Urology Office/Clinic Note Urology Office/Clinic Note Chief Complaint 6 month with PSA HPI Staff 74 year old male here for 6 mth f/u w/ PSA () Preview Dx: prostate nodule, BPH with urinary obstruction, hx of kidney stones, organic impotence. *Sildenafil 100 mg prn PSA: 12/05/24 - 2.1 Denies urinary complaints at this time. Denies all pain and no visible blood at any time. History of Present Illness Tests reviewed: UA, PSA I have reviewed the previous health record information and history for this patient from Dr. Sheth. I have reviewed and verified the staff HPI to be accurate for this encounter. Review of Systems PHQ Score Initial Depression Screen Score: 0 SCORE ROS - Provider Constitutional: denies weight loss, denies hot flashes. Eyes: denies eye problems. Gastrointestinal: denies nausea, denies vomiting. Cardiovascular: denies chest pain or angina. Integumentary: no dryness Musculoskeletal: denies musculoskeletal symptoms. ENMT: denies otolaryngeal symptoms. Respiratory: no shortness of breath. Heme/Lymph: denies easy bleeding tendency, denies easy bruising tendency. Psychiatric: no confusion, no anxiety. Genitourinary: See HPI. Physical Exam Vitals & Measurements T: 37 ???C(Temporal Artery) HR: 79(Peripheral) RR: 16 BP: 138/83 HT: 173 cm HT: 68 in WT: 75.3 kg WT: 166.008 lb BMI: 25.16 General Appearance: alert, no distress, well nourished, well developed male. KING ~ 30 g, no nodules. Assessment/Plan Pt here with his today. 1. Prostate cancer (C61: Malignant neoplasm of prostate) ACTIVE SURVEILLANCE PSA: 09/26/21 - 1.76 12/10/22 - 1.99 02/14/24 - 1.97 12/05/24 - 2.10 KING 02/22/23 - 30 g, R base to apex nodule. MRI prostate 03/25/23 - Neg. Prostate volume 31 cc. TRUS/bx 04/28/23 - Patchy chronic inflammation x 1 core. CAMILLE x 1 core. Prostate volume 23 cc. TRUS/bx 05/30/24 - G6 (3+3) x 1 core (RA), 2% of the core involved, GG1. UA neg. IPSS 13 (8). No BPH meds. Voiding well. PSA stable. Will cont to monitor. Discussed confirmatory bx one yr from original dx (due 05/2025). Tolerated first bx better than the second. Offered to be under MAC anesthesia instead of local or can take a valium prior. Pt would like a valium beforehand. Pt inquired about genomic testing of pathology tissue. Given low grade and very low volume of cancer, this is not recommended. KING ~ 30 g, no nodules. Follow up for confirmatory bx below or sooner if needed. Pt understands and agrees with plan. -Cont -Schedule confirmatory TRUS/bx for Apr to May 2025. Valium prior. 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 2. History of kidney stones (Z87.442: Personal history of urinary calculi) CT AP w con 03/04/23 [facility] - No renal stones noted. KUB 04/05/23 [facility] - Obscuring bowel gas. Neg. KUB 04/13/23 [facility] - Neg. KUB 05/10/24 [facility] - Neg. -KUB due 04/2025 3. 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 Follow-up With When Contact Information SARA QIU, Kody Plasencia, URL [facility] [address] [place] [address]- Additional Instructions: Schedule confirmatory TRUS/bx for Apr to May 2025. Patient Education Transrectal Ultrasound-Guided Prostate Biopsy, Care After Transrectal Ultrasound-Guided Prostate Biopsy Aracelis Kimble, personally scribed for Dr. Sheth on 12/08/2024 10:51:12. . Documentation recorded by the scribe, Aracelis Meza, accurately reflects the services(s) I performed and decisions made by me. Authenticated by Dr. Sheth on 12/08/2024 10:54:16. Problem List/Past Medical History Ongoing Family history of prostate cancer History of kidney stones Hyperlipidemia Hypogonadism in male Organic impotence Prostate cancer Historical No qualifying data Procedure/Surgical History Transrectal needle biopsy of prostate (04/28/2023), History of knee surgery, Tonsillectomy. Medications aspirin, 81 mg Multi Vitamin+ sildenafil 100 mg Tab, 100 mg= 1 tab(s), Oral, Daily, 4 refills simvastatin, 40 mg, Oral Allergies No Known Medication Allergies Social History Alcohol - Low Risk, 08/03/2019 Never., 12/03/2024 Tobacco Former smoker, quit more than 30 days ago, Haven't smoked since 08/11/1977 Tobacco Use:. Never Smokeless Tobacco Use:. Cigarettes, Household tobacco concerns: No. Yes, 12/08/2024 Family History Alzheimer's disease: Mother. Cancer of prostate: Grandparent. Leukemia: Father. Immunizations Vaccine Date Status Comments influenza virus vaccine, inactivated 06/24/2023 Recorded influenza virus vaccine, inactivated 07/06/2022 Recorded SARS-CoV-2 (COVID-19) [id number] 05/13/2022 Recorded 2023-05-07: TPV70 influenza virus vaccine, inactivated 07/18/2021 Recorded SARS-CoV-2 (COVID-19) mRNA BNT-162b2 vax 07/18/2021 Recorded 2023-05-07: [id number] SARS-CoV-2 (COVID-19) mRNA BNT-162b2 vax 11/01/2020 Recorded SARS-CoV-2 (COVID-19) mRNA BNT-162b2 va (more content not included)... Normal [facility] Comment on above: Result Comment: Elec tronically Signed By: Kody SHETH MD\.br\Date and Time Signed: 12/08/24 10:54 EDT\.br\Electronically Co-Signed By: Aracelis Meza\.br\Date and Time Co-Signed: 12/08/24 10:51 EDT CHEMISTRYOrdered By: SYSTEM SYSTEM on 12-06-2024 Prostate specific Ag [Mass/Vol] 2.1 ng/mL Normal 0.1 - 3.5 ng/mL [facility] Comment on above: Interpretive Data: T he concentration of PSA determined by different manufacturers can vary due to differences in assay methods and reagent specificity. Values obtained from different assay methods cannot be used interchangeably. The methodology used for this result was chemiluminescence using [employer]'s Access Hybritech PSA reagent. PSA Totalon 12-06-2024 Prostate specific Ag [Mass/Vol] 2.1 ng/mL Normal 0.1-3.5 [facility] Comment on above: Result Comment: The concentration of PSA determined by different manufacturers can vary due to differences in assay methods and reagent specificity. Values obtained from different assay methods cannot be used interchangeably. The methodology used for this result was chemiluminescence using [employer]ina [employer]'s Access Hybritech PSA reagent. Performed By: #### 1 [id number] #### [facility] [address] [place] [address] Ambulatory Visit Summaryon 1 Ambulatory Visit Summary Ambulatory Visit Summary FLORES DOLAN Kailee :1950 Visit Date:06/16/2024 Ambulatory Visit Instructions Your Diagnosis Prostate cancer History of kidney stones BPH without urinary obstruction Organic impotence Your Care Team Attending Physician - Kody SHETH MD Primary Care Physician - NIKI BUENROSTRO CNP This Is Your Medications List sildenafil (sildenafil 100 mg Tab) tamsulosin (tamsulosin 0.4 mg Cap) Contact prescribing physician if questions or concerns aspirin multivitamin (Multi Vitamin+) simvastatin Procedures Performed Transrectal needle biopsy of prostate (04/28/2023), History of knee surgery, Tonsillectomy. Discharge Vitals Temperature (Temporal Artery) 37 ?C Heart Rate (Peripheral) 61 Respiratory Rate 16 Blood Pressure 136/80 Height 173 cm Height 68 in Weight 75 kg Weight 165 lb BMI 25.06 What to do next Scheduled Follow-Up Appointments Wednesday 10:15 AM EDT With: Kody SHETH MD Where: [facility] [address] [address] [place] [address]- You Need to Schedule the Following Appointments Follow Up with Kody SHETH MD, URL When: Where: [address] [place] [id number]- Medications What How Much When Instructions Unchanged [...] that you are currently receiving treatment for. 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 Please share your experience with us by completing your survey. We appreciate your feedback and thank you for choosing us for your care. Education Materials Prostate Cancer The prostate is a small gland that produces fluid that makes up semen (seminal fluid). It is located below the bladder in men, in front of the rectum. Prostate cancer is the abnormal growth of cells in the prostate gland. What are the causes? The exact cause of this condition is not known. What increases the risk? You are more likely to develop this condition if: ? You are 65 years of age or older. ? You have a family history of prostate cancer. ? You have a family history of breast and ovarian cancer. ? You have genes that are passed from parent to child (inherited), such as BRCA1 and BRCA2. ? You have Treadwell syndrome. men and men of descent are diagnosed with prostate cancer at higher rates than other men. The reasons for this are not well understood and are likely due to a combination of genetic and environmental factors. What are the signs or symptoms? Symptoms of this condition include: ? Problems with urination. This may include: ? A weak or interrupted flow of urine. ? Trouble starting or stopping urination. ? Trouble emptying the bladder all the way. ? The need to urinate more often, especially at night. ? Blood in urine or semen. ? Persistent pain or discomfort in the lower back, lower abdomen, or hips. ? Trouble getting an erection. ? Weakness or numbness in the legs or feet. How is this diagnosed? This condition can be diagnosed with: ? A digital rectal exam. For this exam, a health care provider inserts a gloved finger into the rectum to feel the prostate gland. ? A blood test called a prostate-specific antigen (PSA) test. ? A procedure in which a sample of tissue is taken from the prostate and checked under a microscope (prostate biopsy). ? An imaging test called transrectal ultrasonography. Once the condition is diagnosed, tests will be done to determine how far the cancer has spread. This is called staging the cancer. Staging may involve imaging tests, such as a bone scan, CT scan, PET scan, or MRI. Stages of prostate cancer The stages of prostate cancer are as follows: ? Stage 1 (I). At this stage, the cancer is found in the prostate only. The cancer is not visible on imaging tests, and it is usually found by accident, such as during prostate surgery. ? Stage 2 (II). At this stage, the cancer is more advanced than it is in stage 1 (more content not included)... Normal [facility] Urology Office/Clinic Noteon 06-16-2024 Urology Office/Clinic Note Urology Office/Clinic Note Chief Complaint Review TRUS Bx path HPI Staff 74 year old male patient presents for 1 year follow up with TRUS/ Bx PATH Preview Dx: prostate nodule, BPH with urinary obstruction, hx of kidney stones, organic impotence. *Sildenafil 100 mg prn, Tamsulosin 0.4mg qd-refill sent to PSA 02/14/24: 1.97 KUB 05/10/24 Dysuria: denies Incomplete bladder emptying: denies Hematuria: denies Frequency: denies Urgency: denies Nocturia: 0-1x Stream: a little straining every once in a while for the past few years but states that about 90% of the time he has a good steady stream Leaking: denies Post void dripping: denies Wearing pads/ Depends: denies Urge incontinence: denies Stress incontinence: denies Incontinence without Sensory Awareness: denies Abdominal pain: denies Flank pain: denies Sexual complaints: denies History of Present Illness Tests reviewed: reviewed UA and path. I have reviewed the previous health record information and history for this patient from Dr. Sheth. I have reviewed and verified the staff HPI to be accurate for this encounter. There have been no associated fever, chills, flank pain, or blood in the urine. Denies any urinary infections since last encounter. Review of Systems PHQ Score Initial Depression Screen Score: 0 SCORE ROS - Provider Constitutional: denies weight loss, denies hot flashes. Eyes: denies eye problems. Gastrointestinal: denies nausea, denies vomiting. Cardiovascular: denies chest pain or angina. Integumentary: no dryness Musculoskeletal: denies musculoskeletal symptoms. ENMT: denies otolaryngeal symptoms. Respiratory: no shortness of breath. Heme/Lymph: denies easy bleeding tendency, denies easy bruising tendency. Psychiatric: no confusion, no anxiety. Genitourinary: See HPI. Physical Exam Vitals & Measurements T: 37 ?C(Temporal Artery) HR: 61(Peripheral) RR: 16 BP: 136/80 HT: 68 in HT: 173 cm WT: 75 kg WT: 165 lb BMI: 25.06 General Appearance: alert, no distress, well nourished, well developed male. Assessment/Plan 1. Prostate cancer (C61: Malignant neoplasm of prostate) PSA: 09/26/21 - 1.76 12/10/22 - 1.99 02/14/24 - 1.97 TRUS/bx 04/28/23 - Patchy chronic inflammation x 1 core. CAMILLE x 1 core. Prostate volume 23 cc. S/p TRUS/bx 05/30/24. Path ~Magdiel 6 (3+3) 2% of the core involved. 1 of 1 core R apex. GG1. Denies post op complications. The pathology report, which shows the presence of prostate cancer, was disclosed to the patient in detail today. I discussed with the patient all the treatment options, including active surveillance, radical prostatectomy either by open, laparoscopic, or laparoscopic robotic technique. I discussed the radiation therapy options, including prostate brachytherapy, external beam radiation therapy, and combinations of the two. Lupron hormonal therapy was also discussed. I went over the pros and cons of each therapy today. Will proceed with active surveillance which requires a repeat biopsy in 1 year barring PSA. Pt agrees with plan. -PSA in 6 mos [resides in [facility] for winter] -Appt is not to be rescheduled if a scheduling conflict arises from our end (unless Dr. Sheth is going to be out of the office) 2. History of kidney stones (Z87.442: Personal history of urinary calculi) [facility] ER 03/04/23 due to LUQ pain and nausea. CT AP w con 03/04/23 [facility] - L-sided hydronephrosis and ureter questionable subtle punctate stone in the region of the L UVJ. R kidney unremarkable. No renal stones noted. 03/04/23 - BUN 19. Crea 1.28. eGFR >60. KUB 04/05/23 [facility] - Obscuring bowel gas, neg for stones. KUB 04/13/23 [facility] - Neg for stones. KUB 05/10/24 [facility] - no stones id'd. -KUB due 04/2025 3. BPH without urinary obstruction (N40.0: Benign prostatic hyperplasia without lower urinary tract symptoms) Not taking any BPH meds. No urinary concerns. UA today negative for infection or blood. 4. 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 Follow-up With When Contact Information SARA QIU, Kody Plasencia, URL [address] [place] [address]- Additional Instructions: 6 mos w/ PSA Patient Education Prostate Cancer I, Sara Andersen, personally scribed for Dr. Sheth on 06/16/2024 10:58:07. . Documentation recorded by the scribe, Sara Andersen, accurately reflects the services(s) I performed and decisions made by me. Authenticated by Dr. Sheth on 06/16/2024 11:01:44. 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 Normal [facility] Comment on above: Result Comment: Elec tronically Signed By: Kody SHETH MD\.br\Date and Time Signed: 06/16/24 11:01 EDT\.br\Electronically Co-Signed By: Sara Andersen\.br\Date and Time Co-Signed: 06/16/24 10:58 EDT Prostate Histology ([facility]) on 06-08-2024 Prostate Histology Diagnosis Info Invalid Interpretation Code [facility] Comment on above: Result Comment: A:Pr ostate,Left Lateral Base:Needle Biopsy Interpretation - - Benign prostatic tissue. MicroScopic Description - A:Prostate,Left Base:Needle Biopsy Interpretation - - Benign prostatic tissue. MicroScopic Description - A:Prostate,Left Lateral Mid:Needle Biopsy Interpretation - - Benign prostatic tissue. MicroScopic Description - A:Prostate,Left Mid:Needle Biopsy Interpretation - - Benign prostatic tissue. MicroScopic Description - A:Prostate,Left Lateral Kensett:Needle Biopsy Interpretation - - Benign prostatic tissue. MicroScopic Description - A:Prostate,Left Kensett:Needle Biopsy Interpretation - - Benign prostatic tissue. MicroScopic Description - A:Prostate,Right Base:Needle Biopsy Interpretation - - Benign prostatic tissue. MicroScopic Description - A:Prostate,Right Lateral Base:Needle Biopsy Interpretation - - Benign prostatic tissue. MicroScopic Description - A:Prostate,Right Mid:Needle Biopsy Interpretation - - Benign prostatic tissue. MicroScopic Description - A:Prostate,Right Lateral Mid:Needle Biopsy Interpretation - - Benign prostatic tissue. MicroScopic Description - A:Prostate,Right Kensett:Needle Biopsy Interpretation - - Acinar adenocarcinoma of prostate; Magidel score 6(3+3); Tumor measures 0.04 cm in length; 2% of the core involved by tumor; 1 of 1 core involved. MicroScopic Description - A:Prostate,Right Lateral Kensett:Needle Biopsy Interpretation - - Benign prostatic tissue (see comment). MicroScopic Description - Gross Description Site ID:A color carvalho-white fixative Formalin cores 1 units cm Site ID:B color carvalho-white fixative Formalin cores 1 units cm Site ID:C color carvalho-white fixative Formalin cores 1 units cm Site ID:D color carvalho-white fixative Formalin cores 2 units cm Site ID:E color carvalho-white fixative Formalin cores 1 units cm Site ID:F color carvalho-white fixative Formalin cores 2 units cm Site ID:G color carvalho-white fixative Formalin cores 1 units cm Site ID:H color carvalho-white fixative Formalin cores 1 units cm Site ID:I color carvalho-white fixative Formalin cores 1 units cm Site ID:J color carvalho-white fixative Formalin cores 1 units cm Site ID:K color carvalho-white fixative Formalin cores 1 units cm Site ID:L color carvalho-white fixative Formalin cores 1 units cm Highest grade group: Magdiel score 3+3=6, grade group 1. Highest percentage of core involvement: 2% K and L: Immunostain HMW cytokeratins /p63/ P504S (PIN4 immunostain) reviewed, supporting the rendered diagnosis. CPT: 47034 x 12, 52212 x 2 Electronically signed by : on: 06/08/2024 11:46:52 Performed By: #### 1 [id number] #### [facility] [address] [place] [address] Main OR Intraoperative Recor don 05-30-2024 Main OR Intraoperative Record Main OR Intraoperative Record IntraOp Document Type FTURO Summary Primary Physician: Kody SHETH MD Finalized Date/Time: 05/30/24 11:39:42 Pt. Name: FLORES DOLAN/Sex: 1950 Male Med Rec #: [id number] Physician: Kody SHETH MD Financial #: [id number] Pt. Type: O Room/Bed: / Admit/Disch: 05/30/24 10:30:50 - Institution: Case Times FTURO Entry 1 Patient Times In Room 05/30/24 11:20:00 Out Room 05/30/24 11:38:00 Procedure Times Start 05/30/24 11:24:00 Stop 05/30/24 11:33:00 Anesthesia Times Last Modified By: Hortencia SERRANO, Cynthia Hernandez 05/30/24 11:37:00 Case Attendance FTURO Entry 1 Entry 2 Entry 3 Case Attendee SARA QIU, Kody Burnett RN, Cynthia Au CST, Mita Hernandez Role Performed Surgeon - Primary Director Of Design - Primary Scrub - Primary Time In 05/30/24 11:20:00 05/30/24 11:20:00 05/30/24 11:20:00 Time Out 05/30/24 11:38:00 05/30/24 11:38:00 05/30/24 11:38:00 Procedure PROSTATE TRANSRECTAL PROSTATE TRANSRECTAL PROSTATE TRANSRECTAL ULTRASOUND WITH BIO(.) ULTRASOUND WITH BIO(.) ULTRASOUND WITH BIO(.) Comments Last Modified By: Hortencia SERRANO, Cynthia Burnett RN, Cynthia Burnett RN, Cynthia Hernandez 05/30/24 Soraida Hernandez 05/30/24 Soraida P 05/30/24 11:37:05 11:37:05 11:37:05 Surgical Procedures FTURO Entry 1 Procedure Description Procedure PROSTATE TRANSRECTAL Modifiers . ULTRASOUND WITH BIOPSY Surgeon Description TRUS BIOPSY Primary Procedure Yes Primary Surgeon Kody SHETH MD Start 05/30/24 11:24:00 Stop 05/30/24 11:33:00 Anesthesia Type Local Surgical Service Urology Wound Class 2 - Clean-Contaminated Last Modified By: Hortencia SERRANO, Cynthia Hernandez 05/30/24 11:37:03 General Case Data FTURO Pre-Care Text: Classifies surgical wound, implements aseptic technique, initiates traffic control Entry 1 Case Information OR URO 1 FT Case Level None Wound Class 2 - Clean-Contaminated Specialty Urology Preop Diagnosis ELEVATED PSA, CAMILLE ON Postop Same As Preop Yes PREVIOUS BIOPSY Postop Diagnosis ELEVATED PSA, CAMILLE ON Outcomes Met? Yes PREVIOUS BIOPSY Last Modified By: Hortencia SERRANO, Cynthia Hernandez 05/30/24 11:26:03 Post-Care Text: The patient is free from signs and symptoms of infection EU IntraOp - FTURO Pre-Care Text: Implements protective measures prior to operative or invasive procedure, confirms identity before the operative or invasive procedure, verifies operative procedure, surgical site, and laterality Entry 1 EU Perioperative Protocols Procedure(s) PROSTATE TRANSRECTAL Patient Identity Birthday, ID Band ULTRASOUND WITH BIO(.) Verified (select at Check, Patient least 2): Participation Consents / H and P H&P, Surgery/Procedure Operative Site N/A Verified Consent Marking Verified Surgical Site Yes Laterality Verified n/a Verified Procedure Verified Yes Correct Patient Yes Position Verified Availability Equipment, Medication Time Out Kody SHETH MD, Verified (If Participants Hortencia SERRANO, Cynthia Applicable) Roe Hernandez CST, Kimberly A Time Out Complete 05/30/24 11:24:00 Allergies Reviewed? Yes Allergies Reviewed Self/Patient With Body Position Lateral, right side up Prep Area RECTAL AREA Prep Agents Betadine Solution Skin. Condition Unable to Visualize Description PARTIALLY CLOTHED AND DRAPED Additional Other (See Comment) Specimens Comment X2 TRUS BIOPSY TEMPLATES Specimens Collected Vitals - EU Blood Pressure 159/90 Pulse 57 bpm Respirations 18 br/min SPO2 98 % I&O - EU Outcomes Met? Yes Last Modified By: Cynthia Burnett RN 05/30/24 11:29:08 Post-Care Text: The patient is free from signs and symptoms of injury caused by extraneous objects Sign Out FTURO Entry 1 Before Patient Leaves OR Nurse verbally Yes Nurse verbally Yes confirms with the confirms with the team the name of team that the procedure(s) instrument, sponge, recorded and needle counts are correct (or N/A) Nurse verbally Yes Nurse verbally n/a confirms with the confirms with the team how the team whether there specimen is labeled are any equipment (including patient problems to be name), if applicable addressed Sign Out Complete 05/30/24 11:37:00 Last Modified By: Cynthia Burnett RN 05/30/24 11:37:03 Case Comments Finalized By: Cynthia Burnett RN Document Signatures Signed By: Cynthia Burnett RN 05/30/24 11:39 Normal [facility] Main OR Preoperative Recordo n 05-30-2024 Main OR Preoperative Record Main OR Preoperative Record Holding Area Document Type FTURO Summary Primary Physician: Kody SHETH MD Finalized Date/Time: 05/30/24 10:47:53 Pt. Name: FLORES DOLAN/Sex: 1950 Male Med Rec #: [id number] Physician: Kody SHETH MD Financial #: [id number] Pt. Type: O Room/Bed: / Admit/Disch: 05/30/24 10:30:50 - Institution: Case Times Holding FTURO Pre-Care Text: Verifies consent for planned procedure, identifies individual values and wishes concerning care, includes family members in perioperative teaching Secures patient's records' belongings, and valuables, maintains patient's dignity and privacy, and maintains patient confidentiality Entry 1 In Holding 05/30/24 10:40:00 Outcomes Met? Yes Last Modified By: Binta Hemphill 05/30/24 10:40:14 Post-Care Text: The patient participates in decisions affecting his or her perioperative plan of care The patient's right to privacy is maintained Surgery Checklist FTURO Entry 1 Patient Birthday, ID Band Procedure History and Physical, Identification: Check, Patient Verification: Surgical Consent, With Participation Patient NPO after Midnight: n/a Date/Time: 05/30/24 10:40:00 Personal Items: Glasses, Jewelry Personal Items clothes Comment: Limitations: n/a Complaints of Pain: n/a Pain Comment: n/a Skin Integrity Unable to Visualize Vitals - EU Blood Pressure 159/90 Pulse 57 bpm Respirations 18 br/min SPO2 98 % Additional None Specimens Comment n/a Specimens Collected Residual Amount - 0 RN Reviewed Yes Post Void Last Modified By: Binta Hemphill 05/30/24 10:42:05 Finalized By: Binta Hemphill Document Signatures Signed By: Binta Hemphill 05/30/24 10:42 Binta Hemphill 05/30/24 10:43 Binta Hemphill 05/30/24 10:47 Normal [facility] Operative Reporton Operative Report Operative Report Patient: FLORES DOLAN Age: 74 years Sex: Male : 1950 Associated Diagnoses: None Author: Kody SHETH MD Procedure Operative Information Details: Date/ Time: 05/30/2024 11:41:00. Pre-Op Dx: Elevated PSA - R97.20, CAMILLE of prostate. Post-Op Dx: Same. Anesthesia Type: Local, Periprostatic Nerve Block. Procedure: Transrectal Ultrasound and Transrectal Ultrasound-Guided Biopsy of the Prostate. Complications: None. Risks/Benefits/Inform ed Consent: Surgical risks, benefits, details of the procedure have been explained to the patient, Full informed consent has been obtained. Intraoperative Information Prepped: The patient was brought to the office suite, placed in the modified left lateral Schuster position, The patient was draped appropriately, 80 mg Gentamicin IM injection administered. Procedure: Then 2% Xylocaine jelly was used for intrarectal anesthesia, After waiting several minutes, a well lubricated ultrasound probe was introduced per rectum, The prostate was carefully evaluated in the AP and Sagittal views. Volume: 39 CC. Specimens Removed: A total of 12 biopsies were taken, 6 from each side, and sent to pathology. Devices Implanted: None. Postoperative Information Discharge: The patient tolerated the procedure well and was discharged home in satisfactory condition, The patient was instructed to (Finish antibiotics, Avoid strenuous activity, Go to the emergency room for gross bleeding, fever, or chills). Radiology Report Procedure: Transrectal Ultrasound of the Prostate, Transrectal US guided needle biopsy of the prostate. Narrative: Ultrasound probe is introduced and performed in the longitudinal and transverse plains, The gland measures (47 MM Length, 41 MM Width, 38 MM Depth, with a calculated volume of 39 CC), The prostatic capsule and seminal vesicles appear to be within normal limits, The peripheral zone demonstrates No abnormalities, Rest of the prostate demonstrates No abnormalities, Ultrasound guidance was then utilized to obtain 12 biopsies, These were sent to pathology for evaluation. Normal [facility] Comment on above: Result Comment: Elec tronically Signed By: SARA QIU, Kody Leigh.vinny\Date and Time Signed: 05/30/24 11:42 EDT Prostate Histology ([facility]) on 05-30-2024 PH Method of Extraction Needle Biopsy Normal [facility] Comment on above: Performed By: #### 1 [id number] #### [facility] [address] [place] [address] PH Number of Jars 2 Invalid Interpretation Code [facility] Comment on above: Performed By: #### 1 [id number] #### [facility] [address] [place] [address] PH Specimen 1 L Lat Bse Prost Normal [facility] Comment on above: Performed By: #### 1 [id number] #### [facility] [address] [place] [address] PH Specimen 10 R Lat Bse Prost Normal [facility] Comment on above: Performed By: #### 1 [id number] #### [facility] [address] [place] [address] PH Specimen 11 R Lat Mid Prost Normal [facility] Comment on above: Performed By: #### 1 [id number] #### [facility] [address] [place] [address] PH Specimen 12 R Lat Apx Prost Normal [facility] Comment on above: Performed By: #### 1 [id number] #### [facility] [address] [place] [address] PH Specimen 2 L Lat Mid Prost Normal [facility] Comment on above: Performed By: #### 1 [id number] #### [facility] [address] [place] [address] PH Specimen 3 L Lat Apx Prost Normal [facility] Comment on above: Performed By: #### 1 [id number] #### [facility] [address] [place] [address] PH Specimen 4 L Base Prostate Normal [facility] Comment on above: Performed By: #### 1 [id number] #### [facility] [address] [place] [address] PH Specimen 5 L Mid Prostate Normal [facility] Comment on above: Performed By: #### 1 [id number] #### [facility] [address] [place] [address] PH Specimen 6 L Apx Prostate Normal [facility] Comment on above: Performed By: #### 1 [id number] #### [facility] [address] [place] [address] PH Specimen 7 R Base Prostate Normal [facility] Comment on above: Performed By: #### 1 [id number] #### [facility] [address] [place] [address] PH Specimen 8 R Mid Prostate Normal [facility] Comment on above: Performed By: #### 1 [id number] #### [facility] [address] [place] [address] PH Specimen 9 R Apx Prostate Normal [facility] Comment on above: Performed By: #### 1 [id number] #### [facility] [address] [place] [address] PH Type of Service Technical Only Normal [facility] Comment on above: Performed By: #### 1 [id number] #### [facility] [address] [place] [address] Ambulatory Visit Summaryon 0 05-12-2024 Ambulatory Visit Summary Ambulatory Visit Summary FLORES DOLAN :1950 Visit Date:05/12/2024 Ambulatory Visit Instructions Your Diagnosis 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 Discharge Vitals Heart Rate (Peripheral) 52 Respiratory Rate 16 Blood Pressure 136/86 Height 173 cm Height 68 in Weight 75 kg Weight 165 lb BMI 25.06 What to do next You Need to Schedule the Following Appointments Follow Up with SARA QIU, ISIDORO Saucedo When: Where: [address] [place] [address]- Medications What How Much When Instructions Unchanged aspirin 81 Milligram Unchanged multivitamin (Multi Vitamin+) Unchanged sildenafil (sildenafil 100 mg Tab) 1 Tablets By Mouth Every day Unchanged simvastatin 40 Milligram By Mouth Unchanged tamsulosin (tamsulosin 0.4 mg Cap) 1 Capsules By Mouth 2 times a day Allergies No Known Medication Allergies Problems Ongoing - Any problem that you are currently receiving treatment for. 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 Please share your experience with us by completing your survey. We appreciate your feedback and thank you for choosing us for your care. Education Materials Transrectal Ultrasound-Guided Prostate Biopsy A transrectal ultrasound-guided [...] including vitamins, herbs, eye drops, creams, and fidf-tlz-ludmrou medicines. ? Any problems you or family [...] thinners. ? Taking medicines such as aspirin and ibuprofen. These medicines can thin your blood. Do not take these medicines unless your health care provider tells you to take them. ? Taking hbqn-yzk-dzhkdlk medicines, vitamins, herbs, and supplements. General instructions ? Follow instructions from your health care provider about eating and drinking. In most instances, you will not need to stop eating and drinking completely before the procedure. ? You will be given an enema. During an enema, a liquid is injected into your rectum to clear out waste. ? You may have a blood or urine sample taken. ? Ask your health care provider what steps will be taken to help prevent infection. These steps may include: ? Washing skin with a germ-killing soap. ? Taking antibiotic medicine. ? If you will be going home right after the procedure, plan to have a responsible adult: ? Take you home from the hospital or clinic. You will not be allowed to drive. ? Care for you for the time you are told. What happens during the proced (more content not included)... Normal [facility] Urology Office/Clinic Noteon 05-12-2024 Urology Office/Clinic Note Urology Office/Clinic Note Chief Complaint 1 year follow up HPI Staff 74 year old male patient presents for 1 year follow up with PSA, KUB. Preview Dx: prostate nodule, BPH with urinary obstruction, hx of kidney stones, organic impotence. *Sildenafil 100 mg prn, Tamsulosin 0.4mg qd-refill sent to DM PSA 02/14/24: 1.97 KUB 05/10/24 Dysuria: denies pain or burning Incomplete bladder emptying: denies Hematuria: may have seen blood a couple of weeks ago Frequency: 4x a day Urgency: denies Nocturia: 1x a night Stream: denies hesitancy, denies weak stream Leaking: denies Post void dripping: denies Wearing pads/ Depends: denies Urge incontinence: denies Stress incontinence: denies Incontinence without Sensory Awareness: denies Abdominal pain: denies Flank pain: lower back pain Sexual complaints: denies History of Present Illness Tests reviewed: reviewed UA, PSA, KUB. I have reviewed the previous health record information and history for this patient from Dr. Sheth. I have reviewed and verified the staff HPI to be accurate for this encounter. There have been no associated fever, chills, flank pain, or blood in the urine. Denies any urinary infections since last encounter. Review of Systems PHQ Score Initial Depression Screen Score: 0 SCORE ROS - Provider Constitutional: denies weight loss, [...] HPI. Physical Exam Vitals & Measurements HR: 52(Peripheral) RR: 16 BP: 136/86 HT: 68 in HT: 173 cm WT: 75 kg WT: 165 lb BMI: 25.06 General Appearance: alert, no distress, well nourished, well developed male. Prostate: normal prostate, estimated weight 35 gms, no hard nodule observed. Assessment/Plan 1. BPH with urinary obstruction (N40.1: Benign prostatic hyperplasia with lower urinary tract symptoms) PSA: 09/26/21 - 1.76 12/10/22 - 1.99 02/14/24 - 1.97 PSA stable. No urine sample provided today. Not taking any BPH meds. No urinary concerns. 2. Atypical small acinar proliferation of prostate (N42.32: Atypical small acinar proliferation of prostate) TRUS/bx 04/28/23 - Patchy chronic inflammation x 1 core. CAMILLE x 1 core. Prostate volume 23 cc. Discussed repeating biopsy given CAMILLE diagnosis last year. Pt agrees with plan. -Will schedule TRUS of Prostate with Biopsy. Prophy abx sent. The procedural risks, benefits, details, and treatment alternatives have been discussed with the patient. These include minimal to severe bleeding, infection, blood in the semen, inability to urinate, and severe infection requiring hospitalization and IV antibiotics, among others. Full informed consent has been obtained. Will order Local anesthesia. 4. History of kidney stones (Z87.442: Personal history of urinary calculi) [facility] 03/04/23 due to LUQ pain and nausea. CT AP w con 03/04/23 [facility] - L-sided hydronephrosis and ureter questionable subtle punctate stone in the region of the L UVJ. R kidney unremarkable. No renal stones noted. 03/04/23 - BUN 19. Crea 1.28. eGFR >60. KUB 04/05/23 [facility] - Obscuring bowel gas, neg for stones. KUB 04/13/23 [facility] - Neg for stones. KUB 05/10/24 [facility] - no stones id'd. -KUB in 1 yr 5. 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 Follow-up With When Contact Information SARA QIU, Kody Plasencia, URL [address] [place] [address]- Additional Instructions: Schedule TRUS/BX Patient Education Transrectal Ultrasound-Guided Prostate Biopsy I, Sara Andersen, personally scribed for Dr. Sheth on 05/12/2024 10:28:22. . Documentation recorded by the scribeSara, accurately reflects the services(s) I performed and decisions made by me. Authenticated by Dr. Sheth on 05/12/2024 10:29:47. 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 Normal [facility] Comment on above: Result Comment: Elec tronically Signed By: Kody SHETH MD\.br\Date and Time Signed: 05/12/24 10:29 EDT\.br\Electronically Co-Signed By: Sara Andersen\.br\Date and Time Co-Signed: 05/12/24 10:28 EDT Alanine aminotransferase [En zymatic activity/volume] in Serum or PlasmaOrdered By: Artie Mejia on 03-04-2023 ALT [Catalytic activity/Vol] 20 U/L 7 [facility] Albumin [Mass/volume] in Ser um or Plasma by Bromocresol green (BCG) dye binding methoOrdered By: Artie Mejia on 03-04-2023 Albumin BCG dye [Mass/Vol] 4.8 g/dL 3.5-5.7 [facility] Alkaline phosphatase [Enzyma tic activity/volume] in Serum or PlasmaOrdered By: Artie Mejia on 03-04-2023 ALP [Catalytic activity/Vol] 51 U/L 34-104 [facility] Aspartate aminotransferase [ Enzymatic activity/volume] in Serum or PlasmaOrdered By: Artie Mejia on 03-04-2023 AST [Catalytic activity/Vol] 25 U/L 13-39 [facility] Basophils Auto (Bld) [#/Vol] Ordered By: Artie Mejia on 03-04-2023 Basophils (Bld) [#/Vol] 0.0 10*3/uL 0.0-0.2 [facility] Basophils/100 WBC Auto (Bld) Ordered By: Artie Mejia on 03-04-2023 Basophils/100 WBC (Bld) 0.3 % . [facility] Bilirubin Test strip Ql (U)O rdered By: Artie Mejia on 03-04-2023 Bilirubin Ql (U) Negative Negative [facility] Bilirubin.direct [Mass/volum e] in Serum or PlasmaOrdered By: Artie Mejia on 03-04-2023 Bilirubin.direct [Mass/Vol] 0.20 mg/dL 0.03-0.18 [facility] Bilirubin.total [Mass/volume ] in Serum or PlasmaOrdered By: Artie Mejia on 03-04-2023 Bilirubin [Mass/Vol] 1.1 mg/dL 0.3-1.0 [facility] Calcium [Mass/volume] in Ser um or PlasmaOrdered By: Artie Mejia on 03-04-2023 Calcium [Mass/Vol] 9.9 mg/dL 8.6-10.3 [facility] Carbon dioxide, total [Moles /volume] in Serum or PlasmaOrdered By: Artie Mejia on 03-04-2023 CO2 [Moles/Vol] 31.0 mmol/L 21.0-31.0 [facility] Chloride [Moles/volume] in S bart or PlasmaOrdered By: Artie Mejia on 03-04-2023 Chloride [Moles/Vol] 106 mmol/L 98-107 [facility] Color Auto (U)Ordered By: Kailash kyara Jackie on 03-04-2023 Color (U) Yellow Yellow [facility] Creatinine [Mass/volume] in Serum or PlasmaOrdered By: Artie Mejia on 03-04-2023 Creatinine [Mass/Vol] 1.28 mg/dL 0.70-1.30 [facility] Eosinophils Auto (Bld) [#/Vo l]Ordered By: Artie Mejia on 03-04-2023 Eosinophils (Bld) [#/Vol] 0.0 10*3/uL 0.0-0.45 [facility] Eosinophils/100 WBC Auto (Bl d)Ordered By: Artie Mejia on 03-04-2023 Eosinophils/100 WBC (Bld) 0.6 % . [facility] Erythrocyte distribution wid th Auto (RBC) [Ratio]Ordered By: Artie Mejia on 03-04-2023 Erythrocyte distribution width (RBC) [Ratio] 13.7 % 12.0-14.8 [facility] Globulin Calc (S) [Mass/Vol] Ordered By: Artie Mejia on 03-04-2023 Globulin (S) [Mass/Vol] 2.2 g/dL [facility] Glucose [Mass/volume] in Ser um or PlasmaOrdered By: Artie Mejia on 03-04-2023 Glucose [Mass/Vol] 103 mg/dL 70-100 [facility] Comment on above: ADA recommended refe rence rangeRandom Glucose Reference Range is dependent on time and content of last meal. Glucose of more than 200 mg/dL in a nonstressed, ambulatory subject supports the diagnosis of Diabetes Mellitus. Hematocrit Auto (Bld) [Volum e fraction]Ordered By: Artie Mejia on 03-04-2023 Hematocrit (Bld) [Volume fraction] 45.6 % 38.8-50.0 [facility] Hemoglobin [Mass/volume] in BloodOrdered By: Artie Mejia on 03-04-2023 Hemoglobin (Bld) [Mass/Vol] 15.5 g/dL 13.0-17.0 [facility] Ketones Auto test strip (U) [Mass/Vol]Ordered By: Artie Mejia on 03-04-2023 Ketones (U) [Mass/Vol] Trace Negative [facility] Leukocytes [#/volume] correc cherie for nucleated erythrocytes in Blood by Automated counOrdered By: Artie Mejia on 03-04-2023 WBC corrected for nucl RBC Auto (Bld) [#/Vol] 7.8 10*3/uL 4.1-10.5 [facility] Lipase [Enzymatic activity/v olume] in Serum or PlasmaOrdered By: Artie Mejia on 03-04-2023 Lipase [Catalytic activity/Vol] 30.0 U/L 11.0-82.0 [facility] Lymphocytes Auto (Bld) [#/Vo l]Ordered By: Artie Mejia on 03-04-2023 Lymphocytes (Bld) [#/Vol] 0.7 10*3/uL 1.00-4.8 [facility] Lymphocytes/100 WBC Auto (Bl d)Ordered By: Artie Mejia on 03-04-2023 Lymphocytes/100 WBC (Bld) 9.3 % . [facility] MCH Auto (RBC) [Entitic mass ]Ordered By: Artie Mejia on 03-04-2023 MCH (RBC) [Entitic mass] 31.4 pg 27.5-35.2 [facility] MCHC Auto (RBC) [Mass/Vol]Or dered By: Artie Mejia on 03-04-2023 MCHC (RBC) [Mass/Vol] 34.0 g/dL 32.5-35.6 [facility] MCV Auto (RBC) [Entitic vol] Ordered By: Artie Mejia on 03-04-2023 MCV (RBC) [Entitic vol] 92.1 fL 83.5-101 [facility] Monocyte distribution width [Entitic volume] in Blood by AutomatedOrdered By: Artie Mejia on 03-04-2023 Monocyte distribution width Auto (Bld) [Entitic vol] 14.81 % 0.00-20.00 [facility] Monocytes Auto (Bld) [#/Vol] Ordered By: Artie Mejia on 03-04-2023 Monocytes (Bld) [#/Vol] 0.7 10*3/uL 0.0-0.8 [facility] Monocytes/100 WBC Auto (Bld) Ordered By: Artie Mejia on 03-04-2023 Monocytes/100 WBC (Bld) 8.9 % . [facility] Neutrophils Auto (Bld) [#/Vo l]Ordered By: Artie Mejia on 03-04-2023 Neutrophils (Bld) [#/Vol] 6.3 10*3/uL 1.8-7.7 [facility] Neutrophils/100 WBC Auto (Bl d)Ordered By: Artie Mejia on 03-04-2023 Neutrophils/100 WBC (Bld) 80.9 % . [facility] Nitrite Test strip Ql (U)Ord ered By: Artie Meija on 03-04-2023 Nitrite Ql (U) Negative Negative [facility] No Panel InformationOrdered By: Artie Mejia on 03-04-2023 Estimated GFR (CKD-EPI) > 60.0 mL/Min [facility] Creatinine Clearance (Chem 51.95 [facility] Nucleated erythrocytes [Pres ence] in Blood by Automated countOrdered By: Artie Mejia on 03-04-2023 Nucleated RBC Auto Ql (Bld) 0.1 /100{WBC} 0-0.5 [facility] Platelet mean volume Auto (B ld) [Entitic vol]Ordered By: Artie Mejia on 03-04-2023 Platelet mean volume (Bld) [Entitic vol] 8.8 fL 6.6-10.1 [facility] Platelets Auto (Bld) [#/Vol] Ordered By: Artie Mejia on 03-04-2023 Platelets (Bld) [#/Vol] 141 10*3/uL 150-450 [facility] Potassium [Moles/volume] in Serum or PlasmaOrdered By: Artie Mejia on 03-04-2023 Potassium [Moles/Vol] 5.1 mmol/L 3.5-5.1 [facility] Protein Auto test strip (U) [Mass/Vol]Ordered By: Artie Mejia on 03-04-2023 Protein (U) [Mass/Vol] Negative Negative [facility] Protein [Mass/volume] in Ser um or PlasmaOrdered By: Artie Mejia on 03-04-2023 Protein [Mass/Vol] 7.0 g/dL 6.4-8.9 [facility] RBC Auto (Bld) [#/Vol]Ordere d By: Artie Mejia on 03-04-2023 RBC (Bld) [#/Vol] 4.95 10*6/uL 3.90-5.60 [facility] Serum or plasma albumin/glob ulin mass ratioOrdered By: Artie Mejia on 03-04-2023 Albumin/Globulin [Mass ratio] 2.2 {ratio} [facility] Serum or plasma anion gap de terminationOrdered By: Artie Mejia on 03-04-2023 Anion gap [Moles/Vol] 8.1 mmol/L 6.0-15.0 [facility] Serum or plasma non-glucuron idated bilirubin measurement (mass/volume)Ordered By: Artie Mejia on 03-04-2023 Bilirubin.indirect [Mass/Vol] 0.9 mg/dL [facility] Sodium [Moles/volume] in Ser um or PlasmaOrdered By: Artie Mejia on 03-04-2023 Sodium [Moles/Vol] 140 mmol/L 136-145 [facility] Specific gravity Auto test s trip (U) [Rel density]Ordered By: Artie Mejia on 03-04-2023 Specific gravity (U) [Rel density] 1.032 1.001-1.030 [facility] Troponin I.cardiac [Mass/vol ume] in Serum or Plasma by Detection limit <= 0.01 ng/Ordered By: Artie Mejia on 03-04-2023 Troponin I.cardiac DL <= 0.01 ng/mL [Mass/Vol] 3.0 pg/mL 0.0-20.0 [facility] Urea nitrogen [Mass/volume] in Serum or PlasmaOrdered By: Artie Mejia on 03-04-2023 Urea nitrogen [Mass/Vol] 19 mg/dL 7-25 [facility] Urine clarity by refractomet ry automatedOrdered By: Artie Mejia on 03-04-2023 Clarity Refractometry automated (U) Clear Clear [facility] Urine glucose measurement by automated test strip (mass/volume)Ordered By: Artie Mejia on 03-04-2023 Glucose Auto test strip (U) [Mass/Vol] Normal mg/dL Normal [facility] Urine hemoglobin detection b y automated test stripOrdered By: Artie Mejia on 03-04-2023 Hemoglobin Auto test strip Ql (U) Negative Negative [facility] Urine leukocyte esterase det ection by automated test stripOrdered By: Artie Mejia on 03-04-2023 Leukocyte esterase Auto test strip Ql (U) Negative Negative [facility] Urobilinogen Auto test strip (U) [Mass/Vol]Ordered By: Artie Mejia on 03-04-2023 Urobilinogen (U) [Mass/Vol] Normal mg/dL Normal [facility] WBC Auto (Bld) [#/Vol]Ordere d By: Artie Mejia on 03-04-2023 WBC (Bld) [#/Vol] 7.8 10*3/uL 4.1-10.5 [facility] pH Auto test strip (U)Ordere d By: Artie Mejia on 03-04-2023 pH (U) 5.5 [pH] 5.0-9.0 [facility] CBC AUTO DIFFon 01-01-2023 BASO # 0.0 103/ul Normal 0.0-0.1 [facility] Comment on above: Performed By: #### C BC #### [facility] [address] [address] [address] Licha Cortez Basophils/100 WBC (Bld) 0.7 % Normal 0.2-2.0 T [facility] Comment on above: Performed By: #### C BC #### [facility] [address] [address] [address] Licha Cortez EO # 0.2 103/ul Normal 0.0-0.7 [facility] Comment on above: Performed By: #### C BC #### [facility] [address] [place] [address] Dr. Licha Cortez Eosinophils/100 WBC (Bld) 3.9 % Normal 0.9-7.0 [facility] Comment on above: Performed By: #### C BC #### [facility] [address] [place] [address] Dr. Licha Cortez Erythrocyte distribution width (RBC) [Ratio] 13.0 % Normal 11.0-15.0 [facility] Comment on above: Performed By: #### C BC #### [facility] [facility] [address] [place] [address] Dr. Licha Cortez Hematocrit (Bld) [Volume fraction] 45.8 % Normal 42.0-54.0 [facility] Comment on above: Performed By: #### C BC #### [facility] [address] [place] [address] Dr. Licha Cortez Hemoglobin (Bld) [Mass/Vol] 15.6 g/dL Normal 14.0-18.0 [facility] Comment on above: Performed By: #### C BC #### [facility] [address] [place] [address] Dr. Licha Cortez IG # 0.01 10e3/ul Normal 0.00-0.03 [facility] Comment on above: Performed By: #### C BC #### [facility] [address] [place] [address] Dr. Licha Cortez IG % 0.2 % Normal 0.0-0.5 [facility] Comment on above: Performed By: #### C BC #### [facility] [address] [place] [address] Dr. Licha Cortez LYMPH # 1.4 103/ul Normal 1.2-3.8 [facility] Comment on above: Performed By: #### C BC #### [facility] [address] [place] [address] Dr. Licha Cortez Lymphocytes/100 WBC (Bld) 31.4 % Normal 20.5-60.0 [facility] Comment on above: Performed By: #### C BC #### [facility] [address] [place] [address] Dr. Licha Cortez MANUAL DIFF REQ NO Normal [facility] Comment on above: Performed By: #### C BC #### [facility] [address] [place] [address] Dr. Licha Cortez MCH (RBC) [Entitic mass] 31.5 pg Normal 25.9-34.0 [facility] Comment on above: Performed By: #### C BC #### [facility] [address] [place] [address] Dr. Licha Cortez MCHC (RBC) [Mass/Vol] 34.1 g/dL Normal 29.9-35.2 [facility] Comment on above: Performed By: #### C BC #### [facility] [address] [place] [address] Dr. Licha Cortez MCV (RBC) [Entitic vol] 92.3 fL Normal 80.0-94.0 [facility] Comment on above: Performed By: #### C BC #### [facility] [address] [place] [address] Dr. Licha Cortez MONO # 0.5 103/ul Normal 0.3-0.8 [facility] Comment on above: Performed By: #### C BC #### [facility] [address] [place] [address] Dr. Licha Cortez Monocytes/100 WBC (Bld) 10.9 % Normal 1.7-12.0 [facility] Comment on above: Performed By: #### C BC #### [facility] [address] [place] [address] Dr. Licha Cortez NEUT # 2.3 103/ul Normal 1.4-6.5 [facility] Comment on above: Performed By: #### C BC #### [facility] [address] [place] [address] Dr. Licha Cortez Neutrophils/100 WBC (Bld) 52.9 % Normal 43.0-75.0 [facility] Comment on above: Performed By: #### C BC #### [facility] [address] [address] [address] Licha Cortez Platelet mean volume (Bld) [Entitic vol] 10.3 fL Normal 9.5-13.5 [facility] Comment on above: Performed By: #### C BC #### [facility] [address] [address] [address] Licha Cortez PLT 145 103/ul Critically low 150-450 [facility] Comment on above: Performed By: #### C BC #### [facility] [address] [address] [address] Licha Cortez RBC 4.96 106/ul Normal 4.70-6.10 [facility] Comment on above: Performed By: #### C BC #### [facility] [address] [place] [address] Dr. Licha Cortez WBC 4.4 103/ul Normal 4.0-11.0 [facility] Comment on above: Performed By: #### C BC #### [facility] [address] [place] [address] Dr. Licha Cortez LIPID PROFILEon 01-01-2023 CHOL-HDL RATIO NORM SEE BELOW Normal [facility] Comment on above: Result Comment: 3.3 - 4.4 LOW RISK 4.4 - 7.1 AVERAGE RISK 7.1 - 11.0 MODERATE RISK >11.0 HIGH RISK Performed By: #### C MP, TSH, LIPID #### [facility] [address] [place] [address] Dr. Licha Cortez Cholesterol [Mass/Vol] 162 mg/dL Normal <=200 [facility] Comment on above: Performed By: #### C MP, TSH, LIPID #### [facility] [address] [address] [address] Licha Cortez Cholesterol in HDL [Mass/Vol] 49 mg/dL Normal 40-60 [facility] Comment on above: Performed By: #### C MP, TSH, LIPID #### [facility] [address] [address] [address] Licha Cortez Cholesterol in LDL [Mass/Vol] 97.0 mg/dL Normal [facility] Comment on above: Performed By: #### C MP, TSH, LIPID #### [facility] [address] [address] [address] Licha Cortez Cholesterol.total/Adri sterol in HDL [Mass ratio] 3.3 {ratio} Normal [facility] Comment on above: Performed By: #### C MP, TSH, LIPID #### [facility] [address] [address] [address] Licha Cortez HDL NORMAL > or = 60 mg/dl - LO W CARDIOVASCULAR RISK <40 mg/dl - HIGH CARDIOVASCULAR RISK Normal [facility] Comment on above: Performed By: #### C MP, TSH, LIPID #### [facility] [address] [place] [address] Dr. Licha Cortez LDL CALC NORMAL SEE BELOW Normal [facility] Comment on above: Result Comment: <100 mg/dl OPTIMAL 100 - 129 mg/dl NEAR OR ABOVE OPTIMAL 130 - 159 mg/dl BORDERLINE HIGH 160 - 189 mg/dl HIGH >190 mg/dl VERY HIGH Performed By: #### C MP, TSH, LIPID #### [facility] [address] [place] [address] Dr. Licha Cortez Triglyceride [Mass/Vol] 80 mg/dL Normal <=150 T [facility] Comment on above: Performed By: #### C MP, TSH, LIPID #### [facility] [address] [place] [address] Dr. Licha Cortez VLDL CALC 16.0 mg/dL Normal [facility] Comment on above: Performed By: #### C MP, TSH, LIPID #### [facility] [address] [address] [address] Licha Cortez PROF 14(COMP METB)on 023 Albumin [Mass/Vol] 3.8 g/dL Normal 3.4-5.0 [facility] Comment on above: Performed By: #### C MP, TSH, LIPID #### [facility] [address] [place] [address] Dr. Licha Cortez Albumin/Globulin [Mass ratio] 1.3 {ratio} Normal [facility] Comment on above: Performed By: #### C MP, TSH, LIPID #### [facility] [address] [address] [address] Licha Cortez ALP [Catalytic activity/Vol] 60 U/L Normal 46-116 [facility] Comment on above: Performed By: #### C MP, TSH, LIPID #### [facility] [address] [address] [address] Licha Cortez ALT [Catalytic activity/Vol] 33 U/L Normal 16-63 [facility] Comment on above: Performed By: #### C MP, TSH, LIPID #### [facility] [address] [address] [address] Licha Cortez Anion gap [Moles/Vol] 7.0 mmol/L Normal [facility] Comment on above: Performed By: #### C MP, TSH, LIPID #### [facility] [address] [address] [address] Licha Cortez AST [Catalytic activity/Vol] 27 U/L Normal 15-37 [facility] Comment on above: Performed By: #### C MP, TSH, LIPID #### [facility] [address] [address] [address] Licha Cortez Bilirubin [Mass/Vol] 0.8 mg/dL Normal 0.2-1.0 [facility] Comment on above: Performed By: #### C MP, TSH, LIPID #### [facility] [address] [address] [address] Licha Cortez Calcium [Mass/Vol] 8.7 mg/dL Normal 8.5-10.1 [facility] Comment on above: Performed By: #### C MP, TSH, LIPID #### [facility] [address] [address] [address] Licha Cortez Chloride [Moles/Vol] 106 mmol/L Normal 98-107 [facility] Comment on above: Performed By: #### C MP, TSH, LIPID #### [facility] [address] [address] [address] Licha Cortez CO2 [Moles/Vol] 30.5 mmol/L Normal 21.0-32.0 [facility] Comment on above: Performed By: #### C MP, TSH, LIPID #### [facility] [address] [place] [address] Dr. Licha Cortez Creatinine [Mass/Vol] 0.88 mg/dL Normal 0.70-1.30 [facility] Comment on above: Performed By: #### C MP, TSH, LIPID #### [facility] [address] [place] [address] Dr. Licha Cortez EGFR-AF CHILEAN >60 Normal >=60 [facility] Comment on above: Performed By: #### C MP, TSH, LIPID #### [facility] [address] [place] [address] Dr. Licha Cortez EGFR-NON AF CHILEAN >60 Normal >=60 [facility] Comment on above: Performed By: #### C MP, TSH, LIPID #### [facility] [address] [place] [address] Dr. Licha Cortez Globulin (S) [Mass/Vol] 3.0 g/dL Normal [facility] Comment on above: Performed By: #### C MP, TSH, LIPID #### [facility] [address] [place] [address] Dr. Licha Cortez Glucose [Mass/Vol] 107 mg/dL Critically high 74-106 [facility] Comment on above: Performed By: #### C MP, TSH, LIPID #### [facility] [address] [place] [address] Dr. Licha Cortez Potassium [Moles/Vol] 4.5 mmol/L Normal 3.5-5.1 [facility] Comment on above: Performed By: #### C MP, TSH, LIPID #### [facility] [address] [place] [address] Dr. Licha Cortez Protein [Mass/Vol] 6.8 g/dL Normal 6.4-8.2 [facility] Comment on above: Performed By: #### C MP, TSH, LIPID #### [facility] [address] [place] [address] Dr. Licha Cortez Sodium [Moles/Vol] 139 mmol/L Normal 136-145 [facility] Comment on above: Performed By: #### C MP, TSH, LIPID #### [facility] [address] [address] [address] Licha Cortez Urea nitrogen [Mass/Vol] 14.0 mg/dL Normal 7.0-18.0 [facility] Comment on above: Performed By: #### C MP, TSH, LIPID #### [facility] [address] [address] [address] Licha Cortez Urea nitrogen/Creatinine [Mass ratio] 15.9 mg/mg Normal [facility] Comment on above: Performed By: #### C MP, TSH, LIPID #### [facility] [address] [address] [address] Licha Cortez TSHon 01-01-2023 TSH 3.002 uIU/mL Normal 0.358-3.740 [facility] Comment on above: Performed By: #### C MP, TSH, LIPID #### [facility] [address] [address] [address] Licha Cortez CNSWon 06-03-2022 [facility] Social Work (HEMTMN) FLORES DOLAN ([id number]) 1950 M Date Time Provider Department 06[facility]03[facility] your visit today, we recorded the following information about you: MARCELO Ha 06/03/2022 1:56 PM Signed SOCIAL WORK FOLLOW UP NOTE: [facility] Date of service:06/03/2022 Flores Dolan is being seen for a follow up social work visit. Today's visit includes: patient TOPICS ADDRESSED: HCPOA PLAN: F/U APPOINTMENT: Assigned SW listed in Care Team tab: Yes, No Patient completed HCPOA in the resource center. Copy sent to registration to be scanned into [employer]. MARCELO Ha Allergies As of Date: 06/03/2022 [...] Status:Closed by MILLER GILLILAND on 06/03/22 Normal [facility] Albumin [Mass/volume] in Ser um or PlasmaOrdered By: Niki Buenrostro on 05-15-2022 Albumin [Mass/Vol] 3.8 g/dL 3.2-5.5 [facility] Creatinine and Glomerular fi ltration rate.predicted panel (S/P/Bld)Ordered By: Niki Buenrostro on 05-15-2022 Creatinine [Mass/Vol] 0.75 mg/dL 0.64-1.27 [facility] Estimated glomerular filtrat ion rate (GFR) non- AmericanOrdered By: Niki Buenrostro on 05-15-2022 GFR/1.73 sq M.predicted among non-blacks MDRD (S/P/Bld) [Vol rate/Area] > 60 mL/Min [facility] Globulin Calc (S) [Mass/Vol] Ordered By: Niki Buenrostro on 05-15-2022 Globulin (S) [Mass/Vol] 2.4 g/dL [facility] No Panel InformationOrdered By: Niki Buenrostro on 05-15-2022 Estimated GFR () > 60 mL/Min [facility] Comment on above: GFR estimated refere nce range: According to KDOQI guidelines, <60 ml/min/1.73m2 is sufficient to diagnose a patient with chronic kidney disease. Pharmacy Creatinine Clearance (Chem N/A [facility] Protein [Mass/volume] in Ser um or PlasmaOrdered By: Niki Buenrostro on 05-15-2022 Protein [Mass/Vol] 6.2 g/dL 6.1-7.9 [facility] Serum or plasma alanine hinojosa otransferase measurement without P-5'-P (enzymatic activiOrdered By: Niik Buenrostro on 05-15-2022 ALT No additional P-5'-P [Catalytic activity/Vol] 34 U/L 10-60 [facility] Serum or plasma albumin/glob ulin mass ratioOrdered By: Niki Buenrostro on 05-15-2022 Albumin/Globulin [Mass ratio] 1.6 {ratio} [facility] Serum or plasma alkaline mary jo sphatase measurement (enzymatic activity/volume)Ordered By: Niki Buenrostro on 05-15-2022 ALP [Catalytic activity/Vol] 52 U/L 32-92 [facility] Serum or plasma anion gap de terminationOrdered By: Niki Buenrostro on 05-15-2022 Anion gap [Moles/Vol] 8.5 mmol/L 6.0-15.0 [facility] Serum or plasma aspartate am inotransferase measurement (enzymatic activity/volume)Ordered By: Niki Buenrostro on 05-15-2022 AST [Catalytic activity/Vol] 34 U/L 10-42 [facility] Serum or plasma calcium arnie urement (mass/volume)Ordered By: Niki Buenrostro on 05-15-2022 Calcium [Mass/Vol] 8.9 mg/dL 8.2-10.2 [facility] Serum or plasma chloride christian surement (moles/volume)Ordered By: Niki Buenrostro on 05-15-2022 Chloride [Moles/Vol] 105 mmol/L 95-114 [facility] Serum or plasma glucose arnie urement (mass/volume)Ordered By: Niki Buenrostro on 05-15-2022 Glucose [Mass/Vol] 126 mg/dL 70-100 [facility] Comment on above: ADA recommended [...] on 05-15-2022 Potassium [Moles/Vol] 4.3 mmol/L 3.5-5.1 [facility] Serum or plasma sodium measu rement (moles/volume)Ordered By: Niki Buenrostro on 05-15-2022 Sodium [Moles/Vol] 135 mmol/L 136-146 [facility] Serum or plasma total biliru bin measurement (mass/volume)Ordered By: Niki Buenrostro on 05-15-2022 Bilirubin [Mass/Vol] 1.1 mg/dL 0.3-1.2 [facility] Serum or plasma total carbon dioxide measurement (moles/volume)Ordered By: Niki Buenrostro on 05-15-2022 CO2 [Moles/Vol] 25.8 mmol/L 22.0-30.0 [facility] Serum or plasma urea nitroge n measurement (mass/volume)Ordered By: Niki Buenrostro on 05-15-2022 Urea nitrogen [Mass/Vol] 12 mg/dL 05-22 [facility] PROF 14(COMP METB)on 022 Albumin [Mass/Vol] 4.0 g/dL Normal 3.4-5.0 [facility] Comment on above: Performed By: #### C MP #### [facility] [address] [place], [place] [address] Dr. Licha Cortez Albumin/Globulin [Mass ratio] 1.4 {ratio} Normal [facility] Comment on above: Performed By: #### C MP #### [facility] [address] [place], [place] [address] Dr. Licha Cortez ALP [Catalytic activity/Vol] 54 U/L Normal 46-116 [facility] Comment on above: Performed By: #### C MP #### [facility] [address] [address] [address] Licha Cortez ALT [Catalytic activity/Vol] 29 U/L Normal 16-63 [facility] Comment on above: Performed By: #### C MP #### [facility] [address] [address] [address] Licha Cortez Anion gap [Moles/Vol] 9.4 mmol/L Normal [facility] Comment on above: Performed By: #### C MP #### [facility] [address] [address] [address] Licha Cortez AST [Catalytic activity/Vol] 20 U/L Normal 15-37 [facility] Comment on above: Performed By: #### C MP #### [facility] [address] [address] [address] Licha Cortez Bilirubin [Mass/Vol] 1.2 mg/dL Critically high 0.2-1.0 [facility] Comment on above: Performed By: #### C MP #### [facility] [address] [address] [address] Licha Cortez Calcium [Mass/Vol] 8.9 mg/dL Normal 8.5-10.1 [facility] Comment on above: Performed By: #### C MP #### [facility] [address] [address] [address] Licha Cortez Chloride [Moles/Vol] 105 mmol/L Normal 98-107 [facility] Comment on above: Performed By: #### C MP #### [facility] [address] [address] [address] Licha Cortez CO2 [Moles/Vol] 28.9 mmol/L Normal 21.0-32.0 [facility] Comment on above: Performed By: #### C MP #### [facility] [address] [address] [address] Licha Cortze Creatinine [Mass/Vol] 0.85 mg/dL Normal 0.70-1.30 [facility] Comment on above: Performed By: #### C MP #### [facility] [address] [address] [address] Licha Cortez EGFR-AF CHILEAN >60 Normal >=60 [facility] Comment on above: Performed By: #### C MP #### [facility] [address] [address] [address] Licha Cortez EGFR-NON AF CHILEAN >60 Normal >=60 [facility] Comment on above: Performed By: #### C MP #### [facility] [address] [address] [address] Licha Cortez Globulin (S) [Mass/Vol] 2.8 g/dL Normal T [facility] Comment on above: Performed By: #### C MP #### [facility] [address] [address] [address] Licha Cortez Glucose [Mass/Vol] 104 mg/dL Normal 74-106 [facility] Comment on above: Performed By: #### C MP #### [facility] [address] [address] [address] Licha Cortez Potassium [Moles/Vol] 4.3 mmol/L Normal 3.5-5.1 [facility] Comment on above: Performed By: #### C MP #### [facility] [address] [address] [address] Licah Cortez Protein [Mass/Vol] 6.8 g/dL Normal 6.4-8.2 [facility] Comment on above: Performed By: #### C MP #### [facility] [address] [address] [address] Licha Cortez Sodium [Moles/Vol] 139 mmol/L Normal 136-145 [facility] Comment on above: Performed By: #### C MP #### [facility] [address] [address] [address] Licha Cortez Urea nitrogen [Mass/Vol] 16.0 mg/dL Normal 7.0-18.0 [facility] Comment on above: Performed By: #### C MP #### [facility] [address] [address] [address] Licha Cortez Urea nitrogen/Creatinine [Mass ratio] 18.8 mg/mg Normal [facility] Comment on above: Performed By: #### C MP #### [facility] [address] [place] [address] Dr. Licha Cortez A1C HEMOGLOBINon 11-27-2021 HbA1c (Bld) [Mass fraction] 5.5 % [facility] [email or web address] Other HbA1c (Bld) [Mass fraction]o n 11-27-2021 A1C HEMOGLOBIN [facility] [email or web address] Other Vital Signs Date Time Vital Sign Value Performing Clinician Facility 02-09-2025 12:57-0400 Body height 172.7 cm Anatoliy Monk DO Work Phone: [facility] 02-09-2025 12:57-0400 Body mass index (BMI) [Ratio] 23.87 kg/m2 Anatoliy Monk DO Work Phone: [facility] 02-09-2025 12:57-0400 Body weight 71.22 kg Anatoliy Monk DO Work Phone: [facility] 02-01-2025 09:30-0400 Diastolic blood pressure 87 mm[Hg] Linda DeWilde DO Work Phone: [facility] 02-01-2025 09:30-0400 Heart rate 48 /min Linda DeWilde DO Work Phone: [facility] 02-01-2025 09:30-0400 Respiratory rate 20 /min Linda DeWilde DO Work Phone: [facility] 02-01-2025 09:30-0400 SaO2% (BldA) [Mass fraction] 98 % Linda DeWilde DO Work Phone: [facility] 02-01-2025 09:30-0400 Systolic blood pressure 138 mm[Hg] Linda DeWilde DO Work Phone: [facility] 02-01-2025 08:18-0400 Body height 172.72 cm Linda DeWilde DO Work Phone: [facility] 02-01-2025 08:18-0400 Body weight 69.85 kg Linda DeWilde DO Work Phone: [facility] 01-26-2025 14:29-0400 Body height 172.72 cm Linda DeWilde DO Work Phone: [facility] 01-26-2025 14:29-0400 Body mass index (BMI) [Ratio] 24.6 kg/m2 Linda DeWilde DO Work Phone: [facility] 01-26-2025 14:29-0400 Body temperature 97.9 [degF] Linda DeWilde DO Work Phone: [facility] 01-26-2025 14:29-0400 Body weight 73.48 kg Linda DeWilde DO Work Phone: [facility] 01-26-2025 14:29-0400 Diastolic blood pressure 78 mm[Hg] Linda DeWilde DO Work Phone: [facility] 01-26-2025 14:29-0400 Heart rate 59 /min Linda DeWilde DO Work Phone: [facility] 01-26-2025 14:29-0400 Respiratory rate 16 /min Linda DeWilde DO Work Phone: [facility] 01-26-2025 14:29-0400 SaO2% (BldA) [Mass fraction] 96 % Linda DeWilde DO Work Phone: [facility] 01-26-2025 14:29-0400 Systolic blood pressure 147 mm[Hg] Linda DeWilde DO Work Phone: [facility] 01-04-2025 13:39-0400 Body height 172.72 cm [facility] 01-04-2025 13:39-0400 Body mass index (BMI) [Ratio] 25.2 kg/m2 [facility] 01-04-2025 13:39-0400 Body weight 75.29 kg [facility] 01-04-2025 13:39-0400 Diastolic blood pressure 84 mm[Hg] [facility] 01-04-2025 13:39-0400 Heart rate 62 /min [facility] 01-04-2025 13:39-0400 SaO2% (BldA) [Mass fraction] 97 % [facility] 01-04-2025 13:39-0400 Systolic blood pressure 132 mm[Hg] [facility] 06-16-2024 09:48-0400 Blood Pressure Location Kody SHETH [facility] 06-16-2024 09:48-0400 Body temperature 98.6 [degF] Kody SHETH [facility] 06-16-2024 09:48-0400 Diastolic blood pressure 80 mm[Hg] Kody SHETH [facility] 06-16-2024 09:48-0400 Heart rate 61 /min Kody SHETH [facility] 06-16-2024 09:48-0400 Respiratory rate 16 /min Kody SHETH [facility] 06-16-2024 09:48-0400 Systolic blood pressure 136 mm[Hg] Kody SHETH [facility] 05-12-2024 09:54-0400 Blood Pressure Location Kody SHETH [facility] 05-12-2024 09:54-0400 Diastolic blood pressure 86 mm[Hg] Kody SHETH [facility] 05-12-2024 09:54-0400 Heart rate 52 /min Kody SHETH [facility] 05-12-2024 09:54-0400 Respiratory rate 16 /min Kody SHETH [facility] 05-12-2024 09:54-0400 Systolic blood pressure 136 mm[Hg] Kody SHETH [facility] 03-04-2023 15:22-0400 Diastolic blood pressure 86 mm[Hg] DNP Niki Kaple Work Phone: [facility] 03-04-2023 15:22-0400 Heart rate 60 /min DNP Niki Kaple Work Phone: [facility] 03-04-2023 15:22-0400 Respiratory rate 18 /min DNP Niki Kaple Work Phone: [facility] 03-04-2023 15:22-0400 SaO2% (BldA) [Mass fraction] 95 % DNP Niki Kaple Work Phone: [facility] 03-04-2023 15:22-0400 Systolic blood pressure 171 mm[Hg] DNP Niki Kaple Work Phone: [facility] 03-04-2023 11:29-0400 Body height 172.72 cm DNP Inki Kaple Work Phone: [facility] 03-04-2023 11:29-0400 Body temperature 97.9 [degF] DNP Niki Kaple Work Phone: [facility] 03-04-2023 11:29-0400 Body weight 72.5 kg DNP Niki Lehmanlizabeth Work Phone: [facility] 02-22-2023 09:07-0400 Blood Pressure Location Kody SHETH [facility] 02-22-2023 09:07-0400 Diastolic blood pressure 75 mm[Hg] Kody SHETH [facility] 02-22-2023 09:07-0400 Heart rate 70 /min [facility] SHE[facility] [facility] 02-22-2023 09:07-0400 Respiratory rate 16 /min Kody SHETH [facility] 02-22-2023 09:07-0400 Systolic blood pressure 129 mm[Hg] Kody SHETH [facility] 12-11-2022 10:13-0400 Blood Pressure Location Kody SHETH [facility] 12-11-2022 10:13-0400 Diastolic blood pressure 76 mm[Hg] Kody SHETH [facility] 12-11-2022 10:13-0400 Heart rate 56 /min Kody SHETH [facility] 12-11-2022 10:13-0400 Respiratory rate 16 /min Kody SHETH [facility] 12-11-2022 10:13-0400 Systolic blood pressure 140 mm[Hg] Kody SHETH [facility] 05-13-2022 09:00-0400 Body height 172.72 cm Niki Buenrostro Other [employer] Other 05-13-2022 09:00-0400 Body mass index (BMI) [Ratio] 24.57 kg/m2 Niki Porter Other [employer] Other 05-13-2022 09:00-0400 Body temperature 97.4 [degF] Niki Buenrostro Other [employer] Other 05-13-2022 09:00-0400 Body weight 73.3 kg Niki Porter Other [employer] Other 05-13-2022 09:00-0400 Diastolic blood pressure 70 mm[Hg] Niki Buenrostro Other [employer] Other 05-13-2022 09:00-0400 Respiratory rate 18 /min Niki Porter Other [employer] Other 05-13-2022 09:00-0400 SaO2% (BldA) [Mass fraction] 99 % Nikidemetria Buenrostro Other [employer] Other 05-13-2022 09:00-0400 Systolic blood pressure 128 mm[Hg] Niki Buenrostro Other [employer] Other 01-27-2022 09:30-0400 Body height 172.72 cm Niki Buenrostro Other [employer] Other 01-27-2022 09:30-0400 Body mass index (BMI) [Ratio] 24.34 kg/m2 Niki Buenrostro Other [employer] Other 01-27-2022 09:30-0400 Body temperature 97.3 [degF] Niki Porter Other [employer] Other 01-27-2022 09:30-0400 Body weight 72.62 kg Niki Porter Other [employer] Other 01-27-2022 09:30-0400 Diastolic blood pressure 70 mm[Hg] Niki Porter Other [employer] Other 01-27-2022 09:30-0400 Respiratory rate 18 /min Niki Porter Other [employer] Other 01-27-2022 09:30-0400 SaO2% (BldA) [Mass fraction] 99 % Niki Porter Other [employer] Other 01-27-2022 09:30-0400 Systolic blood pressure 118 mm[Hg] Niki Porter Other [employer] Other 11-27-2021 14:00-0400 Body height 172.72 cm Niki Porter Other [employer] Other 11-27-2021 14:00-0400 Body mass index (BMI) [Ratio] 24.48 kg/m2 Niki Porter Other [employer] Other 11-27-2021 14:00-0400 Body weight 73.03 kg Niki Porter Other [employer] Other 11-27-2021 14:00-0400 Diastolic blood pressure 82 mm[Hg] Niki Buenrostro Other [employer] Other 11-27-2021 14:00-0400 Respiratory rate 16 /min Niki Buenrostro Other [employer] Other 11-27-2021 14:00-0400 SaO2% (BldA) [Mass fraction] 99 % Niki Buenrostro Other [employer] Other 11-27-2021 14:00-0400 Systolic blood pressure 122 mm[Hg] Niki Buenrostro Other [employer] Other Encounters Encounter Date Encounter Type Care Provider Facility Start: 06-18-2025 ambulatory Kody Ma ty:[facility] [place] Start: 05-21-2025 ambulatory Kody Ma [facility] Start: 02-09-2025 End: 02-09-2025 Bamboo flowsheet Anatoliy Monk DO Work Phone: [facility] Start: 02-09-2025 End: 02-09-2025 Bamboo flowsheet Anatoliy Monk DO Work Phone: [facility] [place] Start: 02-09-2025 End: 02-09-2025 Office outpatient visit 25 minutes Anatoliy Monk DO Work Phone: [facility] Comment on above: Asymmetrical hearing loss (Primary Dx); Tinnitus of left ear; History of ear surgery Start: 02-09-2025 End: 02-09-2025 ambulatory ANATOLIY MONK Not Available Start: 02-03-2025 End: 02-03-2025 Bamboo flowsheet Veronica Ferris CCC-A Work Phone: [facility] Start: 02-03-2025 End: 02-03-2025 Bamboo flowsheet Veronica Ferris CCC-A Work Phone: [facility] Start: 02-03-2025 End: 02-03-2025 Clinical Support Veronica Kailee Ferris [facility] Work Phone: [facility] Comment on above: 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) Start: 02-01-2025 Non-patient / Non-visit Tano Schofieldlde DO Work Phone: [facility] Work Phone: Start: 02-01-2025 End: 02-01-2025 Admission to same day surgery center Linda Schofieldlde DO Work Phone: [facility] Work Phone: Start: 02-01-2025 End: 02-01-2025 ambulatory Linda DeLululde DO Work Phone: [facility] Work Phone: Start: 01-26-2025 End: 01-26-2025 Patient encounter procedure Linda [facility]ululde [facility] Work Phone: Start: 01-26-2025 Registered Recurring Linda Piñae DO Work Phone: [facility] Work Phone: Start: 01-26-2025 End: 01-26-2025 ambulatory Linda DeLululde DO Work Phone: [facility] Work Phone: Start: 01-10-2025 End: 01-10-2025 Patient encounter procedure Linda DeLululde DO Work Phone: [facility] Start: 01-10-2025 End: 01-10-2025 ambulatory Linda DeLululde DO Work Phone: [facility] Work Phone: Start: 01-04-2025 End: 01-04-2025 Patient encounter procedure Linda Pantoja DO Work Phone: [facility] Start: 01-04-2025 End: 01-04-2025 ambulatory Linda Pantoja DO Work Phone: [facility] Work Phone: Start: 01-04-2025 End: 01-04-2025 ambulatory [facility] Work Phone: Start: 01-04-2025 End: 01-04-2025 Patient encounter procedure [facility] [place] Work Phone: Start: 12-08-2024 End: 12-08-2024 ambulatory Kody SHETH Facility:[facility] Start: 12-06-2024 End: 12-06-2024 Lab Drop off Kody SHETH [facility] Start: 12-06-2024 End: 12-06-2024 ambulatory Kody SHETH Facility:[facility] [place] Start: 06-16-2024 End: 06-16-2024 ambulatory Kody SHETH Facility:[facility] Start: 06-16-2024 End: 06-16-2024 Patient encounter procedure Kody SHETH [facility] [place] Start: 05-30-2024 End: 05-30-2024 ambulatory Kody SHETH Facility:[facility] Start: 05-30-2024 End: 05-30-2024 Patient encounter procedure Kody SHETH [facility] Start: 05-12-2024 End: 05-12-2024 ambulatory Kody SHETH Facility:[facility] [place] Start: 05-12-2024 End: 05-12-2024 Patient encounter procedure Kody SHETH [facility] [place] Start: 01-03-2024 Patient encounter procedure [facility] Start: 06-04-2023 End: 06-04-2023 ambulatory Niki Buenrostro Other [employer] Other Start: 06-04-2023 Telephone encounter Niki Goldstein [facility] Start: 05-12-2023 End: 05-12-2023 Patient encounter procedure [facility] SHETH [facility] Start: 04-28-2023 End: 04-28-2023 Lab Drop off Kody SHETH [facility] Start: 03-25-2023 End: 03-25-2023 ambulatory DNP Niki Buenrostro Work Phone: [facility] Work Phone: Start: 03-25-2023 End: 03-25-2023 Patient encounter procedure DNP Niki Buenrostro Work Phone: [facility] [place] Work Phone: Start: 03-04-2023 End: 03-04-2023 Emergency department patient visit DNP Niki Buenrostro Work Phone: [facility]Emergency Room Work Phone: Start: 02-22-2023 End: 02-22-2023 Patient encounter procedure Kody SHETH [facility] [place] Start: 01-05-2023 End: 01-05-2023 ambulatory Niki Buenrostro Other [employer] Other Start: 01-05-2023 Telephone encounter Niki [facility] Start: 01-01-2023 End: 01-02-2023 ambulatory NIKI BUENROSTRO Facility:[facility] Start: 12-11-2022 End: 12-11-2022 Patient encounter procedure Kody SHETH [facility] Start: 12-10-2022 End: 12-11-[address] KODY SHETH . Facility:[facility] Start: 07-06-2022 End: 07-06-2022 ambulatory DNP Niki Buenrostro Work Phone: [facility] Work Phone: Start: 07-06-2022 End: 07-06-2022 Discharged Recurring DNP Niki Buenrostro Work Phone: [facility] [place] Start: 06-03-2022 Social Work Miller Delmer LS W Work Phone: Hematology/Oncology Start: 05-15-2022 Registered Recurring DNP Jenifer Buenrostro Work Phone: [facility] [place] Start: 05-15-2022 End: 05-15-2022 Patient encounter procedure DNP Niki Porter Work Phone: [facility] [place] Start: 05-13-2022 End: 05-13-2022 ambulatory Niki Buenrostro Other [employer] Other Start: 05-13-2022 Office outpatient vi sit 25 minutes Niki Buenrostro [facility] [place] Start: 03-10-2022 End: 03-11-2022 ambulatory NIKI BUENROSTRO Facility:[facility] Start: 03-03-2022 End: 03-03-2022 ambulatory Niki Buenrostro Other [employer] Other Start: 03-03-2022 Telephone encounter Niki Porter [facility] Start: 02-08-2022 End: 02-08-2022 ambulatory Niki Porter Other [employer] Other Start: 02-08-2022 Telephone encounter Niki Porter [facility] Start: 01-27-2022 End: 01-27-2022 ambulatory Niki Buenrostro Other [employer] Other Start: 01-27-2022 Office outpatient vi sit 25 minutes Niki Buenrostro [facility] Start: 12-31-2021 End: 12-31-2021 ambulatory Niki Buenrostro Other [employer] Other Start: 12-31-2021 Telephone encounter Niki Porter [facility] Start: 11-27-2021 End: 11-27-2021 ambulatory Niki Porter Other [employer] Other Start: 11-27-2021 Patient encounter procedure Niki Buenrostro [facility] Start: 11-27-2021 Telephone encounter Niki [facility] Procedures Date Procedure Procedure Detail Performing Clinician Start: 02-03-2025 AUDITORY FUNCTION TESTS Veronica Ferris [facility] Work Phone: Start: 02-01-2025 Screening colonoscopy M myriam DeWilde DO Work Phone: Start: 01-04-2025 X-ray of lumbar spin e, two or three views Linda DeWilde DO Work Phone: Start: 01-04-2025 X-ray of sacrum and coccyx, two or more views Linda DeWilde DO Work Phone: Start: 04-28-2023 Transrectal needle b iopsy of prostate Kody SHETH Start: 03-25-2023 X-ray of skull DNP Mayluz elena madsen Porter Work Phone: Start: 03-25-2023 MR prostate wo/w con DN P Niki Porter Work Phone: Start: 03-04-2023 Computed tomography of abdomen and pelvis with contrast DNP Niki eLhmanlizabeth Work Phone: Start: 12-10-2022 PSA screening NIKI PORTER Comment on above: Performed By: #### P SAD #### [facility] [address] [place] [address] Dr. Licha Cortez H/O: surgery History of ear surgery Anatoliy Monk DO Work Phone: History of operative procedure on knee Kody SHETH Tonsillectomy Kody SHETH Plan of Treatment Date Care Activity Detail Author Start: 02-07-2026 End: 02-07-2026 Clinical Support 02/07/2026 9:00 AM EDT Clinical Support [facility] [address] [place] [id number] Veronica Ferris, [facility] [address] [place] [address] [facility] Start: 02-09-2025 End: 02-09-2025 Patient encounter procedure 02/09/2025 1:00 PM EDT Office Visit [facility] [address] [place] [phone] Anatoliy Monk DO [address] [place] [address] [facility] Start: 02-03-2025 End: 02-03-2025 Clinical Support 02/03/2025 8:30 AM EDT Clinical Support [facility] [address] [facility] [id number] Veronica Ferris, [facility] [address] [place] [address] Arrived [facility] Comment on above: Arrived Start: 02-01-2025 [facility] Start: 01-04-2025 Patient referral [facility] Work Phone: Start: 04-30-2022 Influenza vaccination INFLUENZA (#1) [facility] Start: 08-30-2021 ADVANCE DIRECTIVE DISCUSSION ADVANCE DIRECTIVE DISCUSSION [facility] Start: 08-30-2021 DEPRESSION ASSESSMENT DEPRESSION ASS ESSMENT [facility] Start: 2017 PNEUMOCOCCAL: 65+ (1 - PCV) PNEUMOCOCCAL: 65+ (1 - PCV) [facility] Start: 05-02-2013 DIABETES SCREEN DIABETES SCREEN [facility] Start: 2002 SHINGRIX VACCINE (1 of 2) SHINGRIX VACCINE (1 of 2) [facility] Start: 1997 COLOGUARD (FIT-DNA) COLOGUARD (FIT-D NA) [facility] Start: 1997 Colonoscopy COLONOSCOPY [facility] Start: 1997 COLORECTAL CANCER SCREENING COLORECTAL CANCER SCREENING [facility] Start: [address] COLONOGRAPHY [facility] Start: 1997 FECAL OCCULT BLOOD FECAL OCCULT BLOO D [facility] Start: 1997 SIGMOIDOSCOPY SIGMOIDOSCOPY [facility] Start: 1987 LIPID SCREEN LIPID SCREEN [facility] Start: 1971 Urine microalbumin profile DTAP,TDAP,TD (1 - Tdap) [facility] Start: 1970 HEPATITIS C SCREENING HEPATITIS C SC KENYON [facility] Start: 1952 COVID-19 VACCINE (#1) COVID-19 VACCI NE (#1) [facility] Comprehensive metabo lic 1999 panel - Serum or Plasma [facility] Comprehensive metabo lic 2000 panel - Serum or Plasma [facility] Copper measurement [facility] Hepatitis B core antibody measurement [facility] Hepatitis B virus surface Ab [Presence] in Serum [facility] Patient Education [facility] Work Phone: Patient referral [facility] Work Phone: XR Lumbar spine 2 or 3 Views [facility] XR Sacrum and Coccyx GE 2 Views [facility] Immunizations Immunization Date Immunization Notes Care Provider Fa cility 06-24-2023 COVID-19 (MODERNA) 12Y and older [facility] 06-24-2023 influenza virus vaccine, unspecified formulation Kodyconstance SHETH [facility] 06-24-2023 RSV, bv, preFa and preFb, pf [facility] 07-06-2022 influenza, seasonal, injectable Niki Buenrostro Other [facility] 07-06-2022 influenza virus vaccine, unspecified formulation [employer] [facility] 05-13-2022 SARS-CoV-2 (COVID-19 ) [id number] [employer]ody [employer] [facility] Comment on above: Result Comment: 2022: [id number] 07-18-2021 influenza, seasonal, injectable Niki Buenrostro Other [facility] 07-18-2021 COVID-19 Vaccine Pfi zer - Documentation Purposes Only Niki Buenrostro Other [facility] Comment on above: Result Comment: 2022: [id number] 07-18-2021 influenza virus vaccine, unspecified formulation [employer] [facility] 11-01-2020 COVID-19 Vaccine Pfi zer - Documentation Purposes Only Niki Buenrostro Other [facility] 10-11-2020 COVID-19 Vaccine Pfi zer - Documentation Purposes Only Niki Buenrostro Other [facility] 06-24-2020 influenza virus vaccine, unspecified formulation Kody SHETH [facility] 06-24-2020 pneumococcal polysaccharide vaccine, 23 valent Niki Buenrostro Other [facility] 06-24-2020 influenza, seasonal, injectable Niki Buenrostro Other [facility] 07-12-2019 influenza virus vaccine, unspecified formulation [employer] [facility] 07-12-2019 pneumococcal conjuga te vaccine, 13 valent Niki Buenrostro Other [facility] 07-12-2019 influenza, seasonal, injectable Niki Buenrostro Other [facility] 08-04-2018 influenza virus vaccine, unspecified formulation Kody SHETH [facility] 05-24-2017 tetanus toxoid, redu star diphtheria toxoid, and acellular pertussis vaccine, adsorbed Niki Buenrostro Other [facility] 06-26-2014 influenza, injectabl e, quadrivalent, preservative free Niki Buenrostro Other [facility] [email or web address] Other 06-26-2014 influenza, injectabl e, quadrivalent, contains preservative [facility] 09-11-2013 influenza virus vaccine, split virus (incl. purified surface antigen) Niki Buenrostro Other [facility] [email or web address] Other 09-11-2013 influenza virus vaccine, unspecified formulation [facility] Payers Date Payer Category Payer Self-pay [id number] 2024 Managed Care HMO (unspecified) [employer] [id number] 2008 Private Health Insurance [id number] 1959 Medicare [id number] 1959 Medicare [id number] [id number] 1959 Unknown [id number] 2.16.840.1.482673.19 1952 Unknown [id number] 2.16.840.1.397998.3.579.2. 593 1952 Unknown [id number] 2.16.840.1.264464.3.579.2. 593 1952 Unknown [id number] 2.16.840.1.093594.3.579.2. 593 1952 Unknown [id number] 2.16.840.1.460122.3.579.2. 727 1952 Unknown [id number] 2.16.840.1.575842.3.579.2. 727 1952 Unknown [id number] 2.16.840.1.255210.3.579.2. 727 1952 Unknown [id number] 2.16.840.1.305276.3.579.2. 727 1952 Unknown [id number] 2.16.840.1.746520.3.579.2. 727 1952 Unknown [id number] 2.16.840.1.551933.3.579.2. 727 1952 Unknown [id number] 2.16.840.1.395067.3.579.2. 727 1952 Unknown [id number] 2.16.840.1.881372.3.579.2. 727 1952 Unknown [id number] 2.16.840.1.534871.3.579.2. 727 1952 Unknown [id number] 2.840.1.010831.3.579.2. 1259 1952 Unknown [id number] 2.16.840.1.979412.3.579.2. 1259 Private Health Insurance [employer] [facility] PFFS 2 [id number] [facility] [id number] Unknown [id number] 2.840.1.978792.3.579.2. 531 Unknown [id number] 2.16840.1.839619.3.579.2. 531 Unknown [id number] 2.16840.1.505674.3.579.2. 531 Unknown [id number] 2.840.1.662631.3.579.2. 531 Social History Date Type Detail Facility Unknown if ever smoked [employer] Other Start: 02-09-2025 [facility] Assigned At [facility] Start: 1950 Sex Assigned At Male [facility] Start: 01-18-2025 End: 02-01-2025 Tobacco smoking status NHIS Never smoked tobacco [facility] Work Phone: Start: 05-12-2010 End: 02-09-2025 Alcohol intake Current drinker of alcohol (finding) [facility] Start: 1950 Sex Assigned At Not on file [facility] Start: 12-11-2022 End: 02-09-2025 Tobacco smoking status Ex-smoker (finding) [facility] Tobacco smoking status Never [facility] Tobacco Haven't smoked s sedrick 08/11/1977 Tobacco Use:. [facility] Tobacco smoking status [facility] Start: 04-06-2019 End: 02-01-2025 Sex Male (finding) [facility] Tobacco smoking status NHIS Tobacco smoking consumption unknown [facility] History of tobacco use Current smoker [facility] History of tobacco use Cigarette Smoker [facility] Start: 02-09-2025 Tobacco use and exposure Smokeless tobacco non-user [facility] Start: 02-09-2025 History of Social function [facility] Goals Date Patient Goal Desired Activity /State Functional Status Date Assessment Result Facility 06-16-2024 Functional Status N/A [facility] 05-30-2024 Functional Status N/A [facility] 05-12-2024 Functional Status N/A [facility] 05-12-2023 Functional Status N/A [facility] 02-22-2023 Functional Status N/A [facility] 12-11-2022 Functional Status N/A [facility] Clinical Notes 11-28-2012 to 02-09-2025 Anatoliy Monk, - 02/09/2025 1:00 PM Sussy Ferris CCC-Kailee - 02/03/2025 8:30 AM EDT Note Date & Type Note Facility 02-09-2025 History of Presen t illness Narrative Subjective Patient ID: Flores Dolan is a 74 y.o. male who presents for Otitis Media (New Patient : OM / hearing loss / several ear surgeries in past) HPI 74-year-old white male presents today for evaluation of discomfort and drainage from his left ear. Symptoms began a few weeks ago but has responded pretty well to antibiotic. Does have a significant history of several surgeries of his left ear. Denies any significant difficulties with his right ear. Presents today for further evaluation treatment. Review of Systems Patient currently not having any difficulties with ear pain or drainage. Does have decreased hearing on the left side compared to the right. Denies any dizziness. Does describe significant tinnitus. No recent trauma. No air travel. No pain or shortness of breath. No fever. The rest of his review of systems is negative Allergies as of 02/09/2025 (No Known Allergies) Past Medical History: Diagnosis Date Cholesteatoma of middle ear and mastoid 10/31/2008 Conductive hearing loss of combined types 10/31/2008 Mixed conductive and sensorineural hearing loss of left ear 02/08/2025 Pain in joint, lower leg 05/15/2010 Sensorineural hearing loss (SNHL) of both ears 02/08/2025 Sensorineural hearing loss, unilateral, right ear, with unrestricted hearing on the contralateral side 02/08/2025 Tinnitus, right ear 02/08/2025 Current Outpatient Medications: aspirin (ASPIR) 81 MG EC tablet, 1 (one) time each day at the same time, Disp: , Rfl: Multiple Vitamins-Minerals (Multivitamin Adults) tablet, Orally, Disp: , Rfl: sildenafil (Viagra) 100 MG tablet, Take 100 mg by mouth Daily, Disp: , Rfl: simvastatin (Zocor) 40 MG tablet, Take 40 mg by mouth Daily, Disp: , Rfl: Past Surgical History: Procedure Laterality Date MIDDLE EAR SURGERY several Social History Socioeconomic History Marital status: Unmarried Spouse name: Not on file Number of children: Not on file Years of education: Not on file Highest education level: Not on file Occupational History Not on file Tobacco Use Smoking status: Former Types: Cigarettes Smokeless tobacco: Never Substance and Sexual Activity Alcohol use: Yes Drug use: Defer Sexual activity: Not on file Other Topics Concern Not on file Social History Narrative Not on file Social Drivers of Health Financial Resource Strain: Not on file Food Insecurity: Not on file Transportation Needs: Not on file Physical Activity: Not on file Stress: Not on file Social Connections: Not on file Intimate Partner Violence: Not on file Housing Stability: Not on file Objective ENT Physical Exam General Examination: General overview: Normal, age-appropriate, no evidence of distress Head: Normocephalic, atraumatic Eyes: Pupils are equally round and reactive to light and accommodation, extraocular muscles are intact Ears: External ear architecture within normal limits, ear canals are patent, ear canal on the left appears to be very shallow. There is no evidence of transparency of the tympanic membrane. On the right side, normal anatomy. Both ears are examined under binocular microscopy. Nose: External nose unremarkable, nares patent, septum intact, no evidence of congestion. Oral cavity: Mucosa moist, no evidence of ulcer, mass, or lesion Throat: Clear Neck/thyroid: Neck supple, full range of motion, no cervical lymphadenopathy, no evidence of thyromegaly Lymph nodes: No cervical lymphadenopathy Skin: Warm and dry, no evidence of suspicious lesions, no rash Heart: No jugular venous distention, point of maximal impulse normal Lungs: Good air movement, no audible wheezing, no shortness of breath Chest: Normal shape and expansion Abdomen: Normal, soft, nontender, nondistended Musculoskeletal: Cervical spine normal, full range of motion Extremities: No clubbing, cyanosis, or edema Peripheral pulses: 2+ radial, 2+ carotid Neurologic: Alert and oriented, cranial nerves 2-12 are grossly intact Psych: Alert and oriented, normal affect, no evidence of distress Assessment/Plan Diagnoses and all orders for this visit: Asymmetrical hearing loss Comments: Have discussed the possibility of hearing aids with this patient. He will follow-up with the audiology department. Tinnitus of left ear Comments: Patient to continue tinnitus precautions History of ear surgery Comments: Recommend repeat audiogram in 1 year. If the patient were interested in improvement of his hearing on the left without hearing aid, would need to get a CT scan of the temporal bone for better delineation of the anatomy. documented in this encounter [facility] 02-03-2025 History of Presen t illness Narrative History: Pt was referred to ENT because of OM left ear. Pt has history of left ear surgery. Last audio at this office was 01-10-18. Pt had high frequency hearing loss in the right ear. He had hearing loss in his left ear from 250 Hz - 3K Hz and above 4K Hz. Currently pt had difficulty with bleeding in his left ear, onset winter time. Pt also stated he had difficulty with wax in the left ear. Otoscopic Exam: Right Ear: Ear canal clear and TM intact Left Ear: Dense very hard cerumen impaction - unable to remove today. Pt instructed to use sweet oil twice a day until he sees ENT next week Pure Tone Audiometry Right Ear: Mild to moderate hearing loss above 2K Hz. Unable to mask bone conduction thresholds Left Ear: Mild to moderate hearing loss from 250 Hz - 500 Hz rising to mild hearing loss from 1K Hz - 1500 Hz. Mild sloping to profound hearing loss above 3K Hz. Unable to mask bone conduction threshold at 4K Hz Speech Audiometry Right SRT = 20 dB and word discrimination score at 60 dBHL = 96% Left SRT = 40 dB and word discrimination score at 70 dBHL (masked) = 100% Tympanometry Right Ear: Type A tympanogram Left Ear: Type B tympanogram documented in this encounter [facility] 02-01-2025 History and physi brett note [facility] 02-01-2025 Procedure note [facility] 01-26-2025 Progress note [facility] 01-04-2025 Evaluation note Diagnosis Onset Date Resolution Hypocalcemia acute January 04 1:28pm Medicare annual wellness visit, subsequent acute January 04, 2025 1:28pm Mixed hyperlipidemia acute January 04, 2025 1:28pm Thrombocytopenia acute January 04, 2025 1:28pm Colon cancer screening noneactive Ma y 2024 1:28pm Low back pain noneactive January 04 1:28pm Hearing loss noneactive January 04 1:28pm Hematotympanum of left ear noneactive January 04, 2025 1:28pm Otitis media noneactive January 04 1:28pm Tinnitus noneactive January 04, 2025 1:28pm [facility] Work Phone: 1(162) 470-208205-08-2025 Evaluation note* Diagnosis Onset Date Resolution Status Admit Date Hypocalcemia acute January 04 1:28pm Medicare annual wellness vis it, subsequent acute January 04, 2025 1: 28pm Mixed hyperlipidemia acute January 04, 2025 1:28pm Thrombocytopenia acute January 04, 2025 1:28pm Colon cancer screening noneactive Ma y 2024 1:28pm Low back pain noneactive January 04 1:28pm Hearing loss noneactive January 04 1:28pm Hematotympanum of left ear noneactiv e January 04, 2025 1:28pm Otitis media noneactive January 04 1:28pm Tinnitus noneactive January 04, 2025 1:28pm Leukopenia acute January 26, 2025 2:26pm Thrombocytopenia acute December 2:26pm [facility] Work Phone: 1(488) 186-739705-08-2025 Hospital Discharge instructionsAmbulatory Orders* Referral to Gastroenterology Time Frame: 01/04/25, Location: None Selected [facility] Work Phone: 1(879) 965-474304-11-2025 NotePatient Education Oncology Transrectal Ultrasound-Guided Prostate Biopsy, Care After The following information offers guidance on how to care for yourself after your procedure. Your health care provider may also give you more specific instructions. If you have problems or questions, contact your health care provider. What can I expect after the procedure? After the procedure, it is common to have: ??? Pain and discomfort near your rectum, especially while sitting. ??? [place]-colored urine due to small amounts of blood in your urine. ??? A burning feeling while urinating. ??? Blood in your stool (feces) or bleeding from your rectum. ??? Blood in your semen. Follow these instructions at home: Medicines ??? Take ckry-dvj-irduwqc and prescription medicines only as told by your health care provider. ??? If you were given a sedative during your procedure, it can affect you for several hours. Do notdrive or operate machinery until your health care provider says that it is safe. ??? If you were prescribed an antibiotic medicine, take it as told by your health care provider. Donot stop using the antibiotic even if you start to feel better. Activity ??? Return to your normal activities as told by your health care provider. Ask your health care provider what activities are safe for you. ??? Ask your health care provider when it is okay for you to resume sexual activity. ??? You may have to avoid lifting. Ask your health care provider how much you can safely lift. General instructions ??? Drink enough fluid to keep your urine pale yellow. ??? Watch your urine, stool, and semen for new or increased bleeding. ??? Keep all follow-up visits. This is important. Contact a health care provider if: ??? You have any of the following: ? Blood clots in your urine or stool. ? Blood in your urine more than 2 weeks after the procedure. ? Blood in your semen more than 2 months after the procedure. ? New or increased bleeding in your urine, stool, or semen. ? Severe pain in your abdomen. ??? Your urine smells bad or unusual. ??? You have trouble urinating. ??? Your lower abdomen feels firm. ??? You have problems getting an erection. ??? You have nausea or you vomit. Get help right away if: ??? You have a fever or chills. This could be a sign of infection. ??? You have bright red urine. ??? You have severe pain that does not get better with medicine. ??? You cannot urinate. Summary ??? After this procedure, it is common to have pain and discomfort around your rectum, especially while sitting. ??? You may have blood in your urine and stool after the procedure. ??? It is common to have blood in your semen after this procedure. ??? Get help right away if you have a fever or chills. This could be a sign of infection. This information is not intended to replace advice given to you by your health care provider. Make sure you discuss any questions you have with your health care provider. Document Revised: 02/09/2022 Document Reviewed: 02/09/2022 [employer] Patient Education ? 2023 [employer] Transrectal Ultrasound-Guided Prostate Biopsy A transrectal ultrasound-guided prostate biopsy is a procedure to remove samples of prostate tissuefor testing. The prostate is a walnut-sized gland that is located below the bladder and in front ofthe rectum. During this procedure, a small device (probe) is lubricated and put inside the rectum. The probe sends out sound waves that make a picture of the prostate and surrounding tissues (transrectal ultrasound). The images are used to help guide the process of removing the samples. The samplesare taken to a lab to be checked for prostate cancer. This procedure is usually done to evaluate the prostate gland of men who have raised (elevated) levels of prostate-specific antigen (PSA), which can be a sign of prostate cancer or prostate enlargement related to aging (benign prostatic hyperplasia, or BPH). Tell a health care provider about: ??? Any allergies you have. ??? All medicines you are taking, including vitamins, herbs, eye drops, creams, and mlpi-xqe-sphdytf medicines. ??? Any problems you or family members have had with anesthetic medicines. ??? Any bleeding problems you have. ??? Any surgeries you have had. ??? Any medical conditions you have. ??? Any prostate infections you have had. What are the risks? Generally, this is a safe procedure. However, problems may occur, including: ??? Prostate infection. ??? Bleeding from the rectum. ??? Blood in the urine. ??? Allergic reactions to medicines. ??? Damage to surrounding structures such as blood vessels, organs, or muscles. ??? Difficulty passing urine. ??? Nerve damage. This is usually temporary. What happens before the procedure? Medicines Ask your health care provider about: ??? Changing or stopping your regular medicines. This is especial (more content not included)...[facility]10-18-2024 Hospital Discharge instructions Patient Education 06/16/2024 10:46:41 Prostate Cancer Prostate Cancer The prostate is a small gland that produces fluid that makes up semen (seminal fluid). It is located below the bladder in men, in front of the rectum. Prostate cancer is the abnormal growth of cells in the prostate gland. What are the causes? The exact cause of this condition is not known. What increases the risk? You are more likely to develop this condition if: You are 65 years of age or older. You have a family history of prostate cancer. You have a family history of breast and ovarian cancer. You have genes that are passed from parent to child (inherited), such as BRCA1 and BRCA2. You have [place] syndrome. men and men of descent are diagnosed with prostate cancer at higher rates than other men. The reasons for this are not well understood and are likely due to a combination of genetic and environmental factors. What are the signs or symptoms? Symptoms of this condition include: Problems with urination. This may include: ?A weak or interrupted flow of urine. ?Trouble starting or stopping urination. ?Trouble emptying the bladder all the way. ?The need to urinate more often, especially at night. Blood in urine or semen. Persistent pain or discomfort in the lower back, lower abdomen, or hips. Trouble getting an erection. Weakness or numbness in the legs or feet. How is this diagnosed? This condition can be diagnosed with: A digital rectal exam. For this exam, a health care provider inserts a gloved finger into the rectum to feel the prostate gland. A blood test called a prostate-specific antigen (PSA) test. A procedure in which a sample of tissue is taken from the prostate and checked under a microscope (prostate biopsy). An imaging test called transrectal ultrasonography. Once the condition is diagnosed, tests will be done to determine how far the cancer has spread. This is called staging the cancer. Staging may involve imaging tests, such as a bone scan, CT scan, PETscan, or MRI. Stages of prostate cancer The stages of prostate cancer are as follows: Stage 1 (I). At this stage, the cancer is found in the prostate only. The cancer is not visible on imaging tests, and it is usually found by accident, such as during prostate surgery. Stage 2 (II). At this stage, the cancer is more advanced than it is in stage 1, but the cancer has not spread outside the prostate. Stage 3 (III). At this stage, the cancer has spread beyond the outer layer of the prostate to nearby tissues. The cancer may be found in the seminal vesicles, which are near the bladder and the prostate. Stage 4 (IV). At this stage, the cancer has spread to other parts of the body, such as the lymph nodes, bones, bladder, rectum, liver, or lungs. Prostate cancer grading Prostate cancer is also graded according to how the cancer cells look under a microscope. This is called the Magdiel score and the total score can range from 6 10, indicating how likely it is that the cancer will spread (metastasize) to other parts of the body. The higher the score, the greater thelikelihood that the cancer will spread. [place] 6 or lower: This indicates that the cancer cells look similar to normal prostate cells (well differentiated). Magdiel 7: This indicates that the cancer cells look somewhat similar to normal prostate cells (moderately differentiated). [place] 8, 9, or 10: This indicates that the cancer cells look very different than normal prostate cells (poorly differentiated). How is this treated? Treatment for this condition depends on several factors, including the stage of the cancer, your age, personal preferences, and your overall health. Talk with your health care provider about treatment options that are recommended for you. Common treatments include: Observation for early stage prostate cancer (active surveillance). This involves having exams, blood tests, and in some cases, more biopsies. For some men, this is the only treatment needed. Surgery. Types of surgeries include: ?Open surgery (radical prostatectomy). In this surgery, a larger incision is made to remove the prostate. ?A laparoscopic radical prostatectomy. This is a surgery to remove the prostate and lymph nodes through several small incisions. It is often referred to as a minimally invasive surgery. ?A robotic radical prostatectomy. This is laparoscopic surgery to remove the prostate and lymph nodes with the help of robotic arms that are controlled by the surgeon. ?Cryoablation. This is surgery to freeze and destroy cancer cells. Radiation treatment. Types of radiation treatment include: ?External beam radiation. This type aims beams of radiation from outside the body at the prostate to destroy cancerous cells. ?Brachytherapy. This type uses radioactive needles, seeds, wires, or tubes that are implanted into the prostate gland. Like external beam radiation, brachytherapy destroys cancerous cells. An advantage is that this type of radiation limits the damage to surrounding tissue and has fewer side effects. Chemotherapy. This treatment kills cancer cells or stops them from multiplying. It kills both cancer cells and normal cells. Targeted therapy. This treatment uses medicines to kill cancer cells without damaging normal cells. Hormone treatment. This treatment involves taking medicines that act on testosterone, one of the male hormones, by: ?Stopping your body from producing testosterone. ?Blocking testosterone from reaching cancer cells. Follow these instructions at home: Lifestyle Do not use any products that contain nicotine or tobacco. These products include cigarettes, chewing tobacco, and vaping devices, such as e-cigarettes. If you need help quitting, ask your health careprovider. Eat a healthy diet. To do this: ?Eat foods that are high in fiber. These include beans, whole grains, and fresh fruits and vegetables. ?Limit foods that are high in fat and sugar. These include fried or sweet foods. Treatment for prostate cancer may affect sexual function. If you have a partner, continue to have intimate moments. This may include touching, holding, hugging, and caressing your partner. Get plenty of sleep. Consider joining a support group for men who have prostate cancer. Meeting with a support group mayhelp you learn to manage the stress of having cancer. General instructions Take hmns-vbf-zwgcmul and prescription medicines only as told by your health care provider. If you have to go to the hospital, notify your cancer specialist (oncologist). Keep all follow-up visits. This is important. Where to find more information [place] [employer]: www.cancer.org [place] [employer]: www.cancer.net [employer] [place]: www.cancer.gov Contact a health care provider if: You have new or increasing trouble urinating. You have new or increasing blood in your urine. You have new or increasing pain in your hips, back, or chest. Get help right away if: You have weakness or numbness in your legs. You cannot control urination or your bowel movements (incontinence). You have chills or a fever. Summary The prostate is a small gland that is involved in the production of semen. It is located below a man's bladder, in front of the rectum. Prostate cancer is the abnormal growth of cells in the prostate gland. Treatment for this condition depends on the stage of the cancer, your age, personal preferences, and your overall health. Talk with your health care provider about treatment options that are recommended for you. Consider joining a support group for men who have prostate cancer. Meeting with a support group mayhelp you learn to manage the stress of having cancer. This information is not intended to replace advice given to you by your health care provider. Make sure you discuss any questions you have with your health care provider. Document Revised: 11/12/2021 Document Reviewed: 11/12/2021 [employer] Patient Education 2023 [employer]. Follow Up Care 05/12/2024 10:33:52 With:SARA QIU, Kody Plasencia, URL Address: [address] [place], [place] [id number]- When: Unknown [facility] 10-18-2024 NotePatient Education Oncology Prostate Cancer The prostate is a small gland that produces fluid that makes up semen (seminal fluid). It is located below the bladder in men, in front of the rectum. Prostate cancer is the abnormal growth of cells in the prostate gland. What are the causes? The exact cause of this condition is not known. What increases the risk? You are more likely to develop this condition if: ? You are 65 years of age or older. ? You have a family history of prostate cancer. ? You have a family history of breast and ovarian cancer. ? You have genes that are passed from parent to child (inherited), such as BRCA1 and BRCA2. ? You have [place] syndrome. men and men of descent are diagnosed with prostate cancer at higher rates than other men. The reasons for this are not well understood and are likely due to a combination of genetic and environmental factors. What are the signs or symptoms? Symptoms of this condition include: ? Problems with urination. This may include: ? A weak or interrupted flow of urine. ? Trouble starting or stopping urination. ? Trouble emptying the bladder all the way. ? The need to urinate more often, especially at night. ? Blood in urine or semen. ? Persistent pain or discomfort in the lower back, lower abdomen, or hips. ? Trouble getting an erection. ? Weakness or numbness in the legs or feet. How is this diagnosed? This condition can be diagnosed with: ? A digital rectal exam. For this exam, a health care provider inserts a gloved finger into the rectum to feel the prostate gland. ? A blood test called a prostate-specific antigen (PSA) test. ? A procedure in which a sample of tissue is taken from the prostate and checked under a microscope(prostate biopsy). ? An imaging test called transrectal ultrasonography. Once the condition is diagnosed, tests will be done to determine how far the cancer has spread. This is called staging the cancer. Staging may involve imaging tests, such as a bone scan, CT scan, PETscan, or MRI. Stages of prostate cancer The stages of prostate cancer are as follows: ? Stage 1 (I). At this stage, the cancer is found in the prostate only. The cancer is not visible on imaging tests, and it is usually found by accident, such as during prostate surgery. ? Stage 2 (II). At this stage, the cancer is more advanced than it is in stage 1, but the cancer has not spread outside the prostate. ? Stage 3 (III). At this stage, the cancer has spread beyond the outer layer of the prostate to nearby tissues. The cancer may be found in the seminal vesicles, which are near the bladder and the prostate. ? Stage 4 (IV). At this stage, the cancer has spread to other parts of the body, such as the lymph nodes, bones, bladder, rectum, liver, or lungs. Prostate cancer grading Prostate cancer is also graded according to how the cancer cells look under a microscope. This is called the Magdiel score and the total score can range from 6?10, indicating how likely it is that the cancer will spread (metastasize) to other parts of the body. The higher the score, the greater thelikelihood that the cancer will spread. ? [place] 6 or lower: This indicates that the cancer cells look similar to normal prostate cells (well differentiated). ? [place] 7: This indicates that the cancer cells look somewhat similar to normal prostate cells (moderately differentiated). ? [place] 8, 9, or 10: This indicates that the cancer cells look very different than normal prostate cells (poorly differentiated). How is this treated? Treatment for this condition depends on several factors, including the stage of the cancer, your age, personal preferences, and your overall health. Talk with your health care provider about treatment options that are recommended for you. Common treatments include: ? Observation for early stage prostate cancer (active surveillance). This involves having exams, blood tests, and in some cases, more biopsies. For some men, this is the only treatment needed. ? Surgery. Types of surgeries include: ? Open surgery (radical prostatectomy). In this surgery, a larger incision is made to remove the prostate. ? A laparoscopic radical prostatectomy. This is a surgery to remove the prostate and lymph nodes through several small incisions. It is often referred to as a minimally invasive surgery. ? A robotic radical prostatectomy. This is laparoscopic surgery to remove the prostate and lymph nodes with the help of robotic arms that are controlled by the surgeon. ? Cryoablation. This is surgery to freeze and destroy cancer cells. ? Radiation treatment. Types of radiation treatment include: ? External beam radiation. This type aims beams of radiation from outside the body at the prostate to destroy cancerous cells. ? Brachytherapy. This type uses radioactive needles, seeds, wires, or tubes that are implanted intothe prostate gla (more content not included)...[facility]10-01-2024 Hospital Discharge instructions Patient Education 05/30/2024 11:37:06 EU - Transrectal Ultrasound of the Prostate with US guided biopsy Discharge Instructions (CUSTOM) Transrectal Ultrasound of the Prostate with US guided biopsy Even though there are no visible incisions, multiple prostate biopsies have been taken through the rectum and you need to follow some instructions to minimize the risks of bleeding. You may see some blood in your urine and stool for up to 1 week (and blood in the semen for severalmonths) Diet -You may resume your normal diet, but you may want to avoid alcohol, carbonated drinks, caffeine, and spicy foods, which may increase the irritation from the surgery. -Drink plenty of water to keep the urine clear. Activity -You should limit any physical activity for about 48 hours -No heavy lifting or straining (10 pound limit) -No driving a car and limit long car rides for 2 days -No strenuous exercise -No sexual intercourse until this is discussed with your doctor Bowels -Try to keep your bowel movements soft to minimize straining to have a bowel movement. -You may use a stool softener or over the counter laxative if needed -Difficult bowel movement may lead to straining and bleeding from the prostate Medications -You may resume your home medications unless instructed otherwise -Hold aspirin, ibuprofen, Coumadin (warfarin) and other blood thinners for about two days or until there is no active bleeding unless otherwise instructed -Finish the antibiotic which you have already started Things to watch for which would require an Emergency Room visit or call 911: (this is not a complete list) -Persistent or heavy bleeding or blood clots from the rectum or in the urine -Inability to urinate -Fever over 101.5 degrees Fahrenheit, with or without chills -Severe drug reactions with itching, hives or rash -Tenderness or swelling of the calves, chest pain, or shortness of breath Please call the office to arrange for your post-operative appointment in 1-2 weeks [phone] or [phone] Follow Up Care 05/12/2024 10:44:56 With:Kody SARA Address: [address] [place] [address] [place] [address]- Business (1) When: Unknown Comments:Keep scheduled appointment J.W. Ruby [facility] NotePatient Education Custom Transrectal Ultrasound of the Prostate with US guided biopsy ? Even though there are no visible incisions, multiple prostate biopsies have been taken through the rectum and you need to follow some instructions to minimize the risks of bleeding. ? You may see some blood in your urine and stool for up to 1 week (and blood in the semen for several months) ? Diet -You may resume your normal diet, but you may want to avoid alcohol, carbonated drinks, caffeine, and spicy foods, which may increase the irritation from the surgery. -Drink plenty of water to keep the urine clear. ? Activity -You should limit any physical activity for about 48 hours -No heavy lifting or straining (10 pound limit) -No driving a car and limit long car rides for 2 days -No strenuous exercise -No sexual intercourse until this is discussed with your doctor ? Bowels -Try to keep your bowel movements soft to minimize straining to have a bowel movement. -You may use a stool softener or over the counter laxative if needed -Difficult bowel movement may lead to straining and bleeding from the prostate ? Medications -You may resume your home medications unless instructed otherwise -Hold aspirin, ibuprofen, Coumadin (warfarin) and other blood thinners for about two days or until there is no active bleeding unless otherwise instructed -Finish the antibiotic which you have already started ? Things to watch for which would require an Emergency Room visit or call 911: (this is not a complete list) -Persistent or heavy bleeding or blood clots from the rectum or in the urine -Inability to urinate -Fever over 101.5 degrees Fahrenheit, with or without chills -Severe drug reactions with itching, hives or rash -Tenderness or swelling of the calves, chest pain, or shortness of breath ? Please call the office to arrange for your post-operative appointment in 1-2 weeks [phone] or [phone] Discharge instructions Patient Education 05/12/2024 10:27:58 Transrectal Ultrasound-Guided Prostate Biopsy Transrectal Ultrasound-Guided Prostate Biopsy A transrectal ultrasound-guided prostate biopsy is a procedure to remove samples of prostate tissuefor testing. The prostate is a walnut-sized gland that is located below the bladder and in front ofthe rectum. During this procedure, a small device (probe) is lubricated and put inside the rectum. The probe sends out sound waves that make a picture of the prostate and surrounding tissues (transrectal ultrasound). The images are used to help guide the process of removing the samples. The samplesare taken to a lab to be checked [...] including vitamins, herbs, eye drops, creams, and fstr-tdk-wpllzni medicines. Any problems you or family members [...] provider tells you to take them. Taking wjfd-web-odzevcs medicines, vitamins, herbs, and supplements. General instructions [...] blood oxygen level will be monitored until youleave the hospital or clinic. You may have [...] hospital or clinic, and follow up with yourhealth care provider for your results. This information is not intended to replace advice given to you by your health care provider. Make sure you discuss any questions you have with your health care provider. Document Revised: 02/09/2022 Document Reviewed: 02/09/2022 [employer]bolt Patient Education 2023 [employer]. Follow Up Care 05/12/2023 15:23:05 With:SARA QIU, Kody Plasencia, URL Address: [address] [place] [address]- When: Unknown [facility] 09-13-2024 NotePatient Education Oncology Transrectal Ultrasound-Guided Prostate Biopsy A transrectal ultrasound-guided prostate biopsy is a procedure to remove samples of prostate tissuefor testing. The prostate is a walnut-sized gland that is located below the bladder and in front ofthe rectum. During this procedure, a small device (probe) is lubricated and put inside the rectum. The probe sends out sound waves that make a picture of the prostate and surrounding tissues (transrectal ultrasound). The images are used to help guide the process of removing the samples. The samplesare taken to a lab to be checked [...] including vitamins, herbs, eye drops, creams, and gevv-tpc-ihfrmxg medicines. ? Any problems you or family [...] thinners. ? Taking medicines such as aspirin and ibuprofen. These medicines can thin your blood. Do not take these medicines unless your health care provider tells you to take them. ? Taking adja-ouy-ytvvjvs medicines, vitamins, herbs, and supplements. General instructions ? Follow instructions from your health care provider about eating and drinking. In most instances, you will not need to stop eating and drinking completely before the procedure. ? You will be given an enema. During an enema, a liquid is injected into your rectum to clear out waste. ? You may have a blood or urine sample taken. ? Ask your health care provider what steps will be taken to help prevent infection. These steps mayinclude: ? Washing skin with a germ-killing soap. ? Taking antibiotic medicine. ? If you will be going home right after the procedure, plan to have a responsible adult: ? Take you home from the hospital or clinic. You will not be allowed to drive. ? Care for you for the time you are told. What happens during the procedure? ? An IV will be inserted into one of your veins. ? You will be given one or both of the following: ? A medicine to help you relax (sedative). ? A medicine to numb the area (local anesthetic). ? You will be placed on your left side, and your knees will be bent toward your chest. ? A probe with lubricated gel will be placed into your rectum, and images will be taken of your prostate and surrounding structures. ? Numbing medicine will be injected into your prostate. ? A biopsy needle will be inserted through your rectum or perineum and guided to your prostate using the ultrasound images. ? Prostate tissue samples will be removed, and the needle and probe will then be removed. ? The biopsy samples will be sent to a lab to be tested. The procedure may vary among health care providers and hospitals. What happens after the procedure? ? Your blood pressure, heart rate, breathing rate, and blood oxygen level will be monitored until you leave the hospital or clinic. ? You may have some discomfort in the rectal area. You will be given pain medicine as needed. ? If you were given a sedative during the procedure, it can affect you for several hours. Do not drive or operate machinery until your health care provider says that it is safe. ? It is up to you to get the results of your procedure. Ask your health care provider, or the department that is doing the procedure, when your results will be ready. ? Keep all follow-up visits. This is important. Summary ? A transrectal ultrasound-guided biopsy removes samples of tissue from your prostate using ultrasound-guided sound waves to help guide the process. ? This procedure is usually done to evaluate the prostate gland of men who have raised (elevated) levels of prostate-specific antigen (PSA), which can be a sign of prostate cancer or prostate enlargement related to aging. ? After your procedure, you may feel some discomfort in the rectal area. ? Plan to have a responsible adult take you home from the hospital or clinic, (more content not included)...[facility]23 Hospital Discharge instructions Patient Education 05/12/2023 15:21:13 Benign Prostatic Hyperplasia Benign Prostatic Hyperplasia Benign prostatic hyperplasia (BPH) is an enlarged prostate gland that is caused by the normal agingprocess. The prostate may get bigger as a man gets older. The condition is not caused by cancer. The prostate is a walnut-sized gland that is involved in the production of semen. It is located in front of the rectum and below the bladder. The bladder stores urine. The urethra carries stored urine ou t of the body. An enlarged prostate can press on the urethra. This can make it harder to pass urine. The buildup of urine in the bladder can cause infection. Back pressure and infection may progress to bladder damage and kidney (renal) failure. What are the causes? This condition is part of the normal aging process. However, not all men develop problems from thiscondition. If the prostate enlarges away from the [...] urethra. Follow these instructions at home: Take afrl-iap-bxpqaff and prescription medicines only as told by [...] provider. Document Revised: 03/04/2022 Document Reviewed: 03/04/2022 [employer]bolt Patient Education 2022 [employer]. Follow Up Care 04/29/2023 14:04:06 With:SARA QIU, Kody Plasencia, URL Address: [facility] [address] , [place] [phone]- When: Unknown [facility] 06-26-2023 Evaluation + Plan note Diagnostic Tests Pending * PSA Free & Total 02/22/23 [facility] [place] 06-26-2023 Hospital Discharge instructions Patient Education 02/22/2023 10:07:19 [...] discomfort near your rectum, especially while sitting. [place]-colored urine due to small amounts of blood in your urine. A burning feeling while urinating. Blood in your stool (feces) or bleeding from your rectum. Blood in your semen. Follow these instructions at home: Medicines Take raqh-jfr-rwwryxu and prescription medicines only as told by your health care provider. If you were given a sedative during your procedure, it can affect you for several hours. Do not drive or operate machinery until your health care provider says that it is safe. If you were prescribed an antibiotic medicine, take it as told by your health care provider. Do notstop using the antibiotic even if you start [...] pain and discomfort around your rectum, especially whilesitting. You may have blood in your urine [...] provider. Document Revised: 02/09/2022 Document Reviewed: 02/09/2022 [employer]bolt Patient Education 2022 [employer]. 02/22/2023 10:07:18 Transrectal Ultrasound-Guided Prostate Biopsy Transrectal Ultrasound-Guided Prostate Biopsy A transrectal ultrasound-guided prostate biopsy is a procedure to remove samples of prostate tissuefor testing. The prostate is a walnut-sized gland that is located below the bladder and in front ofthe rectum. During this procedure, a small device (probe) is lubricated and put inside the rectum. The probe sends out sound waves that make a picture of the prostate and surrounding tissues (transrectal ultrasound). The images are used to help guide the process of removing the samples. The samplesare taken to a lab to be checked [...] including vitamins, herbs, eye drops, creams, and izrb-brr-kqgwxhm medicines. Any problems you or family members [...] provider tells you to take them. Taking fint-mps-xcjlyyu medicines, vitamins, herbs, and supplements. General instructions [...] blood oxygen level will be monitored until youleave the hospital or clinic. You may have [...] hospital or clinic, and follow up with yourhealth care provider for your results. This information is not intended to replace advice given to you by your health care provider. Make sure you discuss any questions you have with your health care provider. Document Revised: 02/09/2022 Document Reviewed: 02/09/2022 [employer]bolt Patient Education 2022 [employer]. Follow Up Care 12/11/2022 11:09:24 With:SARA QIU, Kody Plasencia, URL Address: [facility] [address] , [place] [address]- When: Unknown [facility] 04-14-2023 Hospital Discharge instructions Patient Education 12/11/2022 07:54:33 Benign Prostatic Hyperplasia Benign Prostatic Hyperplasia Benign prostatic hyperplasia (BPH) is an enlarged prostate gland that is caused by the normal agingprocess and not by cancer. The prostate is [...] urethra. Follow these instructions at home: Take uuly-sld-ydeymoy and prescription medicines only as told by [...] 08/16/2006 Document Revised: 07/11/2019 Document Reviewed: 09/20/2017 orderbolt Patient Education 2020 [employer]. Follow Up Care 09/29/2021 13:16:05 With:SARA QIU, Kody Plasencia, URL Address: [facility] [address], [place] [phone] When:Within 3 Month(s) Comments:f/u in 3-4 months [facility]22 NoteHNO ID: [id number] Author: MARCELO Ha Service: ? Author Type: Youth Associate Type: Progress Notes Filed: 06/03/2022 1:56 PM Note Text: SOCIAL WORK FOLLOW UP NOTE: [facility] Date of service:06/03/2022 Flores Dolan is being seen for a follow up social work visit. Today's visit includes: patient TOPICS ADDRESSED: HCPOA PLAN: F/U APPOINTMENT: Assigned SW listed in Care Team tab: Yes, No Patient completed HCPOA in the resource center. Copy sent to registration to be scanned into [employer]. [facility] of Present illness Narrative* MARCELO Ha - 06/03/2022 1:54 PM EDT SOCIAL WORK FOLLOW UP NOTE: [facility] Date of service:06/03/2022 Flores Dolan is being seen for a follow up social work visit. Today's visit includes: patient TOPICS ADDRESSED: HCPOA PLAN: F/U APPOINTMENT: Assigned SW listed in Care Team tab: Yes, No Patient completed HCPOA in the resource center. Copy sent to registration to be scanned into [employer]. MARCELO Ha [facility]* Encounter Date Diagnosis Assessment Notes Treatment Notes Treatment Clinical Notes Apr, Strain of lumbar region, initial [...] verbalizes understanding and agrees to treatment plan. [employer] Other 07-05-2022 Evaluation note* Encounter Date Diagnosis Assessment Notes Treatment Notes Treatment Clinical Notes Feb, OM (onychomycosis) (ICD-10 - B35.1) [employer] Other 06-12-2022 Evaluation note* Encounter Date Diagnosis Assessment Notes Treatment Notes Treatment Clinical Notes Jan, OM (onychomycosis) (ICD-10 - B35.1) [employer] Other 05-31-2022 Evaluation note* Encounter Date Diagnosis [...] symptoms persist and not continue to resolve. [employer] Other 05-04-2022 Evaluation note* Encounter Date Diagnosis Assessment Notes Treatment Notes Treatment Clinical Notes December, Hypocalcemia (ICD-10 - E83.51) [employer] Other 03-31-2022 Evaluation note* Encounter Date Diagnosis Assessment Notes Treatment Notes Treatment Clinical Notes Oct, Medicare annual wellness visit, initial (ICD-10 - Z00.00) Personalized health advice was given to the beneficiary including a written plan for screenings discussed and provided. Advanced care planning reviewed and/or information given as requested. The above visit was performed by Aparna EPPS-CC, under direct supervision of Niki Buenrostro, DNP,[employer] TRAINING INSTRUCTOR,METAL [employer]AF LAYER. Document reviewed and amended by provider signed [...] weeks to see how he is doing. [employer] Other 04-01-2013 History general Narrative - Reported* Type Description Date Medical History Hypercholesterolemia Medical History Hydronephrosis & Kidney Stone - Dr. Sheth Medical History right ureterolithiasis - Dr. Naeem witt (November 2012) Surgical History Meniscus Tears repai red Bilateral Knees - Dr. Arellano [facility] & ? 1979 & 2009 Surgical History Cystoscope - Dr. Sheth 12/22/12 Surgical History Surgery (L) ear - cyst 2009 Hospitalization History See Above Surgical Hx [facility] [email or web address] Other Evaluation + Plan note Future Appointments Appointment Date:02/22/2023 09:30:00 AM Scheduled Provider:Kody SHETH MD Location:[facility] Appointment Type:URO Office Visit Diagnostic Tests Pending * PSA Total 12/11/22 [facility] evaluation + Plan note Future Appointments Appointment Date:05/14/2023 10:15:00 AM Scheduled Provider:Kody SHETH MD Location:[facility] Appointment Type:URO Office Visit Diagnostic Tests Pending * Prostate Histology ([facility]) [facility] App[facility]ments Appointment Date:05/12/2024 09:45:00 AM Scheduled Provider:Kody SHETH MD Location:[facility] Appointment Type:URO Office Visit Diagnostic Tests Pending * PSA Total 05/12/23 [facility] Evaluation + Plan note Future Appointments Appointment Date:06/16/2024 10:15:00 AM Scheduled Provider:Kody SHETH MD Location:[facility] Appointment Type:URO Office Visit Diagnostic Tests Pending * Prostate Histology ([facility]) 05/30/24 [facility] Evaluation + Plan note Future Appointments Appointment Date:12/08/2024 10:15:00 AM Scheduled Provider:Kody SHETH MD Location:[facility] Appointment Type:URO Office Visit Diagnostic Tests Pending * PSA Total 09/30/24 [facility] evaluation + Plan note Future Appointments Appointment Date:05/29/2024 02:00:00 PM Scheduled Provider: [facility] Appointment Type:Urology CALL PAT FT Appointment Date:05/30/2024 11:00:00 AM Scheduled Provider: Location:[facility] Appointment Type:Urology FT Appointment Date:05/30/2024 11:00:00 AM Scheduled Provider: Location:.UROLOGY Appointment Type:US Prostate Urology (FT) Appointment Date:06/16/2024 10:45:00 AM Scheduled Provider:Kody SHETH MD Location:[facility] Appointment Type:URO Office Visit Future Scheduled Tests Radiology* US Prostate, [facility] 05/30/24 [facility] evaluation + Plan note Future Appointments Appointment Date:12/08/2024 10:15:00 AM Scheduled Provider:Kody SHETH MD Location:[facility] Appointment Type:URO Office Visit [facility] Evaluation noteNo InformationNoUKDN [employer] Other Evaluation noteNo assessment information available [facility] Work Phone: Evaluation note* Diagnosis Onset Date Resolution Status Admit Date Hypocalcemia acute January 04 1:28pm Medicare annual wellness vis it, subsequent acute January 04, 2025 1: 28pm Mixed hyperlipidemia acute January 04, 2025 1:28pm Thrombocytopenia acute January 04, 2025 1:28pm Low back pain noneactive January 04 1:28pm [facility] Work Phone: Evaluation note* Diagnosis Mixed conductive and sensorineural hearing loss of left ear with restricted hearing of right ear- Primary [facility]* Diagnosis Asymmetrical hearing loss- Primary Unspecified hearing loss Tinnitus of left ear History of ear surgery documented in this encounter [facility] and physical note Author Raúl Elaine [facility] Note Date/Time February 01, 2025 9:55a m [facility] [address] [place] [address] Gastroenterology H&P Signed Patient: Flores Dolan MR#: [id number] : 1950 Acct:[id number] Age/Sex: 74 / M Adm Date: 5 Loc: Room: Type: [facility] Attending Dr: Raúl Elaine MD Copies to: MD Linda Eubanks, DO~ Date of Service: 02/01/2025 HISTORY & PHYSICAL: Patient's history with special attention to the cardiovascular, pulmonary systems and the current problem was reviewed with the patient immediately prior to the procedure. Present medications and doses reviewed in the EMR. Allergies and pertinent laboratory tests were also reviewedat this time in the EMR. The physical examination, as below, was then performed. Indication, assessment and HPI: 74-year-old male presents for screening colonoscopy Family history of GI malignancy? no PHYSICAL EXAMINATION Mouth and Pharynx : moist mucus membranes, normal dentition Eyes: EOM intact b/l, normal sclera Pulmonary: normal respiratory effort, able to speak in complete sentences Neurological: alert and oriented x3, moves all extremities Skin: non-jaundiced, warm and dry Abdomen: non-distended, normal to inspection Psych: Mental status and mood grossly normal REVIEW OF SYSTEMS Constitutional: Denies malaise, fevers Cardiovascular: Denies chest pain, palpitations Respiratory: Denies shortness of breath, wheezing Gastrointestinal: Per HPI Genitourinary: Denies dysuria, polyuria Musculoskeletal: Denies joint swelling, joint stiffness Neurological: Denies numbness, tingling Integumentary: Denies rashes, skin lesions Endocrine: Denies fatigue, weight loss Written informed consent obtained from the patient. Risks (including but not limited to perforation, infection, bloating, bleeding, need for emergent surgeryand loss of life), benefits and alternatives explained and questions answered. The patient verbalized understanding. Based on history patient is an appropriate candidate for the procedure. Raúl Elaine MD Documented By: Raúl Elaine MD 02/01/2549 Signed By: <Electronically signed by Raúl Elaine MD> 02/01/2549 [facility] Work Phone: Hospital course Narrative No data available for this section [facility] Hospital Discharge instructions Additional Instructions Take Naprosyn as prescribed for mild to moderate pain. Take oxycodone as prescribed for severe pain. Take Flomax daily. Increase your intake of fluids and rest. Follow-up with urologist as well for ongoing management.[facility] Work Phone: Hospital Discharge instructions No data available for this section [facility] No data available for this section [facility] [place] progress note Author Arti Allan [facility] Note Date/Time January 26, 2025 3:08p m [facility] [place] [address] Cancer Center Note Signed Patient: Flores Dolan MR#: [id number] : 1950 Acct:[id number] Age/Sex: 74 / M Type: DEP AMB Date of Service: 01/26/25 Copies to: Linda Pantoja DO~ Assessment & Plan A/P (1) Leukopenia: (2) Thrombocytopenia: Plan Mild decrease in both white cells and platelets. Very mild decreasing in both. Will check peripheral smear, HIV, Acute hepatitis panel, vitamin B12, folate, orcopper, CRP, ESR, CBC, CMP. He is a symptomatic and feeling well. Although mild,2 cell lines are effected. Will monitor closely even if above work up negative. Could consider bone marrow if worsens or symptoms develop. Orders: Orders Pathologist Slide Review 11 Weeks D69.6 - Thrombocytopenia, unspecified, D72.819 - Decreased white blood cell count, unspecified Vit. B12/Folate Profile 11 Weeks D69.6 - Thrombocytopenia, unspecified, D72.819- Decreased white blood cell count, unspecified C-Reactive Protein 11 Weeks D69.6 - Thrombocytopenia, unspecified, D72.819 - Decreased white blood cell count, unspecified Copper 11 Weeks D69.6 - Thrombocytopenia, unspecified, D72.819 - Decreased white blood cell count, unspecified Hepatitis B Surface Antigen 11 Weeks D69.6 - Thrombocytopenia, unspecified, D72.819 - Decreased white blood cell count, unspecified Hepatitis B Surface Antibody 11 Weeks D69.6 - Thrombocytopenia, unspecified, D72.819 - Decreased white blood cell count, unspecified Hep C Ab wRfx to Qnt PCR 11 Weeks D69.6 - Thrombocytopenia, unspecified, D72.819 - Decreased white blood cell count, unspecified Complete Blood Count Auto Diff 11 Weeks D69.6 - Thrombocytopenia, unspecified, D72.819 - Decreased white blood cell count, unspecified Comprehensive Metabolic Panel 11 Weeks D69.6 - Thrombocytopenia, unspecified, D72.819 - Decreased white blood cell count, unspecified Erythrocyte Sedimentation Rate 11 Weeks D69.6 - Thrombocytopenia, unspecified, D72.819 - Decreased white blood cell count, unspecified Hepatitis B Core Antibody 11 Weeks D69.6 - Thrombocytopenia, unspecified, D72.819 - Decreased white blood cell count, unspecified HIV 1/O/2 Antigen/Antibody 11 Weeks D69.6 - Thrombocytopenia, unspecified, D72.819 - Decreased white blood cell count, unspecified Patient Instructions: peripheral smear, HIV, Acute hepatitis panel, vitamin B12, folate, or copper, CRP, ESR, CBC, CMP 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 Pantoja for thrombocytopenia and leukopenia. He has a past medical history of low calcium, thrombocytopenia, ED, kidney stones, and mixed hyperlipidemia. His daughter alsohas low platelets. No reason was found for her low platelets. He has no diagnosis of autoimmune diseases. Father had leukemia. Grandpa and prostate cancer. Sister had ovarian cancer. Reports he has prostate cancer. Is followingwith Dr. Sheth for this. Says it very low grade. Labs on 01/10/2025 Significant for WBC of 3.6. hemoglobin of 15.5. platelets of 146. Normal differential. ANC 2.0. On record review, his platelet has been between 141 and 120 since 2022.WBC was 3.[address] abdomen and pelvis done in 2022 did not report on enlarged liver or spleen. Reports he has been feeling pretty well over all. No fevers, chills, weight loss. No night sweats. Denies swollen lymph nodes. Drinks 5-7 beers a week. bleeds if he cuts himself but it stops promptly. No epistaxis or gingival bleeding. Intake Vitals/Pain Assessment 01/26/25 14:29 Height 5 ft 8 in Weight 73.482 kg BMI 24.6 Body Fat % 40.76 BP 147/78 H Blood Pressure Location Lt brachial Position Sitting Temp 97.9 F Temp Source Temporal Pulse 59 L Pulse Source NIBP Respiration 16 Pulse Oximetry (%) 96 Oxygen Delivery Method room air Intake Visit Reasons: NEW-Thrombocytopenia, new patient Accompanied by: Spouse Allergies No Known Allergies Allergy (Verified 01/26/25 14:27) Home Medications - Last Reconciled 01/26/25 by SEAN Justice aspirin 81 mg PO DAILY multivitamin 1 tab PO DAILY sildenafil 100 mg PO DAILY PRN simvastatin 40 mg PO DAILY 90 days sod picosulf-mag ox-citric ac 10 mg-3.5 gram- 12 gram/175 mL (Clenpiq) 175 mL PODAILY 1 day Gastrointestinal Is the patient taking opioids for pain control?: No Falls Fall Precaution Measures Taken: Patient in chair Nurse's Note: Patient is here today for a new patient appointment for thrombocytopenia [facility] Medical History Medical History (Updated 01/18/25 @ 08:11 by Kaylyn Anglin RN) Prostate cancer managed with active surveillance Tinnitus of right ear Thrombocytopenia ED (erectile dysfunction) Diverticulosis of colon Calculus of ureter Hyperlipidemia Problem List clean-up per request of Phys. EHR [facility] Surgical History Surgical History (Updated 01/18/25 @ 08:07 by Kaylyn Anglin RN) History of ear surgery Bilateral Problem List clean-up per request of Phys. EHR Cmte Hx of total knee arthroplasty x2 Problem List clean-up per request of Phys. EHR [facility] Family History Family History (Updated 01/18/25 @ 08:12 by Kaylyn Anglin RN) Father Leukemia 67 yrs Mother Alzheimer's disease 84 yrs Grandparent Prostate cancer Sister Ovarian cancer Social History Social History Smoking status: Never smoker Second hand tobacco smoke exposure: No Within the past year, how often did you have a drink containing alcohol: 2-3 times a week Within the past year, how many standard drinks containing alcohol did you have on a typical day: 1 or 2 Within the past year, how often did you have six or more drinks on one occasion: never AUDIT-C Alcohol total score: 3 AUDIT-C Alcohol score interpretation: A score less than 4 is consistent with normal alcohol consumption. In the past 12 months, have you used illegal drugs or prescription drugs for non-medical reasons?: No Previous occupational history: retired Physical Exam EXAM ECO General: In no acute distress, ambulates independently HEENT: Normocephalic, atraumatic. Lymph: No cervical or axiliary lymph nodes palpable. Heart: RRR Lungs: Lungs CTA. Symmetric expansion Abdomen: Normal bowel sounds, nontender, no hepatosplenomegaly Skin: warm, dry. No rash. Neuro: Alert, oriented. Psych: no evidence of anxiety or depression on exam. Mood appropriate Results - [facility] ([facility] LAB RESULTS Corrected WBC 3.6 X10E3/uL (4.1-10.5) L 01/10/25 07:01/10 Hgb 15.5 g/dL (13.0-17.0) 01/10/25 07:01/10/25 Hct 45.9 % (38.8-50.0) 01/10/25 07:01/10/25 MCV 93.6 fl (83.5-101) 01/10/25 07:01/10/25 RDW 14.2 % (12.0-14.8) 01/10/25 07:01/10/25 Plt Count 146 x10E3/uL (150-450) L 01/10/25 07: Sodium 141 mmol/L (136-145) 01/10/25 07:01/10/25 Potassium 4.8 mmol/L (3.5-5.1) 01/10/25 07:01/10/25 BUN 13 mg/dL (7-25) 01/10/25 07:01/10/25 Creatinine 0.77 mg/dL (0.70-1.30) 01/10/25 07:01/10/25 Glucose 100 mg/dL (70-100) 01/10/25 07:01/10/25 Est GFR (CKD-EPI) > 60.0 mL/Min 01/10/25 07:01/10/25 Calcium 9.2 mg/dL (8.6-10.3) 01/10/25 07:01/10/25 Total Bilirubin 0.9 mg/dl (0.3-1.0) 01/10/25 07:01/10/25 AST 27 U/L (13-39) 01/10/25 07:01/10/25 ALT 24 U/L (7-52) 01/10/25 07:17 01/10/25 Alkaline Phosphatase 53 U/L (34-104) 01/10/25 07:17 01/10/25 Total Protein 6.4 gm/dL (6.4-8.9) 01/10/25 07:17 01/10/25 Albumin 4.4 gm/dL (3.5-5.7) 01/10/25 07:17 01/10/25 Social Determinants of Health Screening SDOH last assessed in clinic: 01/26/25 Will the patient participate in the screening?: Yes Do you worry about having a steady place to live?: No In the past 12 months, have you had to go without electric, gas, oil, or water in your home?: No Have you or anyone in your house had to go without enough food to eat?: No Has lack of reliable transportation kept you from medical appointments or from doing things needed for daily living?: No Has anyone in your support network made you feel unsafe for any reason?: No Does the patient want assistance with any of the above?: No Dictated By: BASSEM Dallas DD/ 1427 Signed By: <Electronically signed by BASSEM Allan> 01/26/25 1548 [facility] Work Phone: Chief Complaint and Reason for Visit Chief Complaint MEDICARE/low back pa in Chief Complaint B35.1 MEDICARE/low back pain Chief Complaint abd pain Chief Complaint abd pain Z80.42 N40.2 Chief Complaint Admit Date [id number]/[id number] January 04, 2025 1:28pm Reason for Visit Admit Date Hypocalcemia January 04, 2025 1:28pm Medicare annual wellness visit, subseque nt January 04, 2025 1:28pm Mixed hyperlipidemia January 04, 2025 1:28p m Thrombocytopenia January 04, 2025 1:28pm Low back pain January 04, 2025 1:28pm Chief Complaint Admit Date [id number] January 04, 2025 1:28pm M54.50 January 04, 2025 2:38pm Reason for Visit Admit Date Hypocalcemia January 04, 2025 1:28pm Medicare annual wellness visit, alex nt January 04, 2025 1:28pm Mixed hyperlipidemia May 8th, 2025 1:28p m Thrombocytopenia January 04, 2025 1:28pm Colon cancer screening January 04, 2025 1:2 8pm Low back pain January 04, 2025 1:28pm Hearing loss January 04, 2025 1:28pm Hematotympanum of left ear January 04, 2025 1:28pm Otitis media January 04, 2025 1:28pm Tinnitus January 04, 2025 1:28pm Chief Complaint Admit Date [id number] January 04, 2025 1:28pm M54.50 January 04, 2025 2:38pm E78.2 Z13.1 D69.6 E83.51 January 10, 2025 7:14am Chief Complaint Admit Date [id number] January 04, 2025 1:28pm M54.50 January 04, 2025 2:38pm E78.2 Z13.1 D69.6 E83.51 January 10, 2025 7:14am Thrombocytopenia January 26, 2025 2:21p m NEW-Thrombocytopenia January 26, 2025 2:26 pm Reason for Visit Admit Date Hypocalcemia January 04, 2025 1:28pm Medicare annual wellness visit, subseque nt January 04, 2025 1:28pm Mixed hyperlipidemia January 04, 2025 1:28p m Thrombocytopenia January 04, 2025 1:28pm Colon cancer screening January 04, 2025 1:2 8pm Low back pain January 04, 2025 1:28pm Hearing loss January 04, 2025 1:28pm Hematotympanum of left ear January 04, 2025 1:28pm Otitis media January 04, 2025 1:28pm Tinnitus January 04, 2025 1:28pm Leukopenia January 26, 2025 2:26p m Thrombocytopenia January 26, 2025 2:26p m Chief Complaint Admit Date [id number] January 04, 2025 1:28pm M54.50 January 04, 2025 2:38pm E78.2 Z13.1 D69.6 E83.51 January 10, 2025 7:14am Thrombocytopenia January 26, 2025 2:21p m NEW-Thrombocytopenia January 26, 2025 2:26 pm Screening February 01, 2025 8:01a m Screening February 01, 2025 8:49a m Advance Directives Advance Directive Response Recorded Date/ Time Advance Directives No January 10 8 9:22am Documents on File Type Date 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 Advance Directive(s) 06/03/2022 11:40 AM Advance Directive Response Recorded Date/ Time Advance Directives No January 10 8:22am Summary Purpose Family History Relationship Condition Age at Onset Recorded Date/T jonatan father Leukemia Unknown Unknown mother Alzheimer's disease Unknown Relationship Condition Age at Onset Recorded Date/T jonatan father Leukemia Unknown Unknown mother Alzheimer's disease Unknown grandparent Malignant neoplasm of prostate Unknown sister Malignant neoplasm of ovary Unknown Additional Source Comments REASON FOR VISIT (unrecogniz ed section and content) Reason Comments Otitis Media New Patient : OM / h earing loss / several ear surgeries in past Care Teams (unrecognized sec tion and content) Team Status: Active Member Role Status Dates Niki Buenrostro DNP Primary Care Provider Active Team Status: Inactive Member Role Status Dates Niki Buenrostro DNP Primary Care Provider Active Artie Mejia DO Emergency Provider Active Team Status: Active Member Role Status Dates Niki Buenrostro DNP Primary Care Provider, Attending Provider Active Team Status: Inactive Member Role Status Dates Niki Buenrostro DNP Primary Care Provider, Attending Provider Active Bearingizer Relationship Specialty Start Date End Date Hilario Sarmiento PCP - General 07/26/07 Team Status: Inactive Member Role Status Dates Niki Buenrostro DNP Primary Care Provider Active Kody Sheth MD Attending Provider Active Team Status: Active Member Role Status Dates Kody Sheth MD Specialist Active Linda Pantoja DO Primary Care Provider Active Team Status: Inactive Member Role Status Dates Linda Pantoja DO Primary Care Provid er, Attending Provider Active Start: January 04, 2025 End: January 04, 2025 Team Status: Inactive Member Role Status Dates Linda Pantoja DO Primary Care Provid er, Attending Provider Active Start: January 10, 2025 End: January 10, 2025 Team Status: Active Member Role Status Dates Linda Pantoja DO Primary Care Provid er, Referring Provider Active Start: January 26, 2025 BASSEM [place] Attending Provider Active Start: January 26, 2025 Team Status: Inactive Member Role Status Dates Linda Pantoja DO Primary Care Provid er, Referring Provider Active Start: January 26, 2025 End: January 26, 2025 BASSEM [place] Attending Provider Active Start: January 26, 2025 End: January 26, 2025 Team Status: Inactive Member Role Status Dates Linda Pantoja DO Primary Care Provider Active Start: February 01, 2025 End: February 01, 2025 Raúl Elaine MD Attending Provider Active S tart: February 01, 2025 End: February 01, 2025 Team Status: Active Member Role Status Dates Linda Pantoja DO Primary Care Provider Active Start: February 01, 2025 Raúl Elaine MD Attending Provider, Other Provide r Active Start: February 01, 2025 Bearingizer Relationship Specialty Start Date End Date Linda Pantoja DO [address] [place] [address] PCP - General Family Medicine 02/03/25 Bearingizer Relationship Specialty Start Date End Date Linda Pantoja DO [address] [place] [address] PCP - General Family Medicine 02/03/25 Bearingizer Relationship Specialty Start Date End Date Linda Pantoja DO [address] [place] [address] PCP - General Family Medicine 02/03/25 Anatoliy Monk DO [address] [place] [address] Otolaryngology 02/09/25 Bearingizer Relationship Specialty Start Date End Date Linda Pantoja DO [address] [place] [address] PCP - General Family Medicine 02/03/25 Anatoliy Monk DO [address] [place] [address] Otolaryngology 02/09/25 Goals (unrecognized section and content) Goals may be documented in a n alternate section Source Comments (unrecognize d section and content) In the event this informatio n is protected by the Federal Confidentiality of Alcohol and Drug Abuse Patient Records regulations: The Federal rules restrict any use of the information to criminally investigate or prosecute any alcohol or drug abuse patient.[facility] (unrecognized sect ion and content) No Status Records FoundNo Status Records FoundNo Status Records FoundNo Status Records FoundNo Status Records FoundNo Status Records FoundNo Status Records Found INFORMATION SOURCE (unrecogn ized section and content) DATE CREATED AUTHOR 06/04/2022 [facility] DATE CREATED AUTHOR AUTHOR'S ORGANIZ ATION 01/08/2023 [facility] DATE CREATED AUTHOR AUTHOR'S ORGANIZ ATION 06/18/2024 [facility] DATE CREATED AUTHOR AUTHOR'S ORGANIZ ATION 12/09/2024 [employer] [facility] DATE CREATED AUTHOR AUTHOR'S ORGANIZ ATION 12/17/2024 [place] [facility] DATE CREATED AUTHOR AUTHOR'S ORGANIZ ATION 02/09/2025 [facility] DATE CREATED AUTHOR AUTHOR'S ORGANIZ ATION 02/12/2025 [facility] EPIC FOR RECORDS PERTAINING TO PATIENTS WHO ARE [...] BE BASED ON THE PRIMARY CLINICAL RECORDS. [employer] [facility]. provides no warranty or guarantee of the accuracy or completeness of information in this document.
[2025-04-19 08:00] LABS: Hematocrit 44.2 % (42.0-54.0); Hemoglobin 15.1 g/dL (14.0-18.0); Immature Granulocytes Abs Auto 0.01 10^3/uL (0.00-0.03); Immature Granulocytes Pct Auto 0.3 % (0.0-0.5); Lymphocytes Absolute Auto 1.0 10^3/uL (1.2-3.8); Mean Corpuscular HGB Conc 34.2 g/dL (29.9-35.2); Mean Corpuscular Hemoglobin 31.8 pg (25.9-34.0); Mean Corpuscular Volume 93.1 fL (80.0-94.0); Platelet Count 139 10^3/uL (150-450); Red Blood Count 4.75 10^6/uL (4.70-6.10); White Blood Count 4.0 10^3/uL (4.0-11.0)
[2025-04-19 10:35] LABS: Alanine Aminotransferase 36 U/L (16-63); Albumin Globulin Ratio 1.4; Albumin Level 3.9 g/dL (3.4-5.0); Alkaline Phosphatase 64 U/L (46-116); Anion Gap 9.6; Aspartate Amino Transferase 24 U/L (15-37); Blood Urea Nitrogen 12.0 mg/dL (7.0-18.0); Calcium 8.7 mg/dL (8.5-10.1); Carbon Dioxide 29.0 mmol/L (21.0-32.0); Chloride 108 mmol/L (98-107); Estimated GFR (African America >60 (>=60 mL/min/1.73m^2); Estimated GFR (Non-African Ame >60 (>=60 mL/min/1.73m^2); Globulin 2.8 g/dL; Glucose 101 mg/dL (74-106); Potassium 4.6 mmol/L (3.5-5.1); Sodium 142 mmol/L (136-145); Total Protein 6.7 g/dL (6.4-8.2)
[2025-04-19 11:00] LABS: Folate 20.70 ng/mL (8.60-58.90)
[2025-04-20 04:08] LABS: Vitamin B12 418 pg/mL (232-1245)
== END 2025-04-19 07:25 | disposition home or self-care (01) ==
LOC: LAB 07:25
PROVIDERS: PCP Nurse Practitioner Family; Visit Provider Nurse Practitioner Adult Health
DX: D72.819 Decreased white blood cell count, unspecified (principal); D69.6 Thrombocytopenia, unspecified
CPT/HCPCS: 36415; 80053; 82525; 82607; 82746; 85025; 85652; 86140; 86317; 86704; 86803; 87340; 87389